=== PATIENT | male | born 1955 | race Caucasian/White ===

== ENCOUNTER → 2019-07-07 | Outpatient (CLI) | payer BC ==
[2019-07-07 13:44] LABS: HCT 36.6 % (39.0-53.0); HGB 12.2 gm/dL (13.0-17.5); MCH 31.4 pg (25.0-35.0); MCHC 33.3 g/dL (31.0-37.0); MCV 94.5 fL (80.0-100.0); Mean Platelet Volume 5.7; Platelet Count 309 k/uL (150-450); RBC 3.87 m/uL (4.30-5.90); RDW 13.4 % (11.5-15.5); WBC 8.3 k/uL (3.8-10.6)
[2019-07-07 19:19] LABS: % Iron Saturation 29.76 (15.00-50.00); African American GFR (CKD) 109.4 (60.0-200.0); Albumin 4.4 g/dL (3.80-4.90); Albumin/Globulin Ratio 1.63 (1.60-3.17); Anion Gap 5.6 mmol/L (4.00-12.00); BUN/Creat Ratio 22.5 Ratio (12.00-20.00); Calcium 9.7 mg/dL (8.7-10.3); Carbon Dioxide 29.4 mmol/L (21.6-31.8); Globulin 2.7 g/dL (1.6-3.3); Non-African American GFR(CKD) 94.4 (60.0-200.0); Potassium 4.3 mmol/L (3.5-5.5); Total Bilirubin 0.4 mg/dL (0.2-1.2); Total Protein 7.1 g/dL (6.2-8.2)
[2019-07-07 19:26] LABS: Prolactin 5.7 ng/mL (2.1-17.7)
[2019-07-07 20:27] LABS: T4, Free (Free Thyroxine) 0.8 ng/dL (0.80-1.80)
== END | disposition home or self-care (01) ==
LOC: LABWHC1 12:40
PROVIDERS: ATTEND Internal Medicine Endocrinology, Diabetes & Metabolism
DX: R53.83 Other fatigue (principal)
CPT/HCPCS: 36415; 80053; 82533; 82607; 83540; 83550; 84146; 84403; 84439; 84443; 84481; 85027

== ENCOUNTER → 2019-07-18 | Outpatient (CLI) | payer BC ==
[2019-07-18 18:37] LABS: Luteinizing Hormone 8.4 mIU/mL
== END | disposition home or self-care (01) ==
LOC: LABWHC1 10:32
PROVIDERS: ATTEND Internal Medicine Endocrinology, Diabetes & Metabolism
DX: R53.83 Other fatigue (principal); R73.09 Other abnormal glucose
CPT/HCPCS: 36415; 83001; 83002; 84402; 84403

== ENCOUNTER → 2019-09-08 | Outpatient (CLI) | payer BC | END | disposition home or self-care (01) | LOC: LABWHC1 11:38 | PROVIDERS: ATTEND Internal Medicine Critical Care Medicine | DX: J45.40 Moderate persistent asthma, uncomplicated (principal) | CPT/HCPCS: 36415; 85008 ==

== ENCOUNTER → 2020-01-08 | Outpatient (CLI) | payer BC ==
--- NOTE | 2020-01-08 16:02 | CT ---
EXAMINATION TYPE: CT chest w con DATE OF EXAM: 01/08/2020 COMPARISON: Chest x-ray 11/12/2019 HISTORY: Follow up pulmonary nodule CT DLP: 758.2 mGycm, Automated exposure control for dose reduction was used. CONTRAST: Performed injected with 100 mL of Isovue 300. TECHNIQUE: Axial images were obtained at 5 mm thick sections. Reconstructed images are reviewed on [employer] computer in the coronal plane. FINDINGS: Portion of the thyroid visualized is normal. There is a 0.6 cm area of pneumonitis within the periphery of the left upper lung field. Series 4 latha ge 24. There is a 0.5 cm calcification in the posterior left lung base with Hounsfield unit measurement of 8 94. Compatible with a calcified granuloma. This may correspond to a small nodule within the left midl lisa there is an additional calcified nodule measuring 0.7 cm and 1143 Hounsfield units compatible wit h a calcified granuloma corresponds to the density identified on the chest x-ray at the left lung bas e. No enlarged mediastinal or hilar adenopathy is evident. The ascending aorta diameter at the level o f the main pulmonary artery is 4.1 cm. The main pulmonary artery diameter at the bifurcation is 3.[address] sections are obtained through the upper abdomen. Abdomen is essentially unremarkable. IMPRESSIONS: 1. Calcified granuloma within the left lung. 2. Small area of pneumonitis. Follow-up chest CT in 6 months can be performed in high risk patients.
== END | disposition home or self-care (01) ==
LOC: RADCTMAIN 13:29
PROVIDERS: ATTEND Internal Medicine Critical Care Medicine
DX: J84.10 Pulmonary fibrosis, unspecified (principal); J18.9 Pneumonia, unspecified organism; Z88.1 Allergy status to other antibiotic agents
CPT/HCPCS: 71260; Q9967

== ENCOUNTER → 2020-01-22 | Outpatient (CLI) | payer BC ==
[2020-01-22 14:06] LABS: HCT 42.6 % (39.0-53.0); HGB 13.6 gm/dL (13.0-17.5); MCH 30.5 pg (25.0-35.0); MCHC 31.8 g/dL (31.0-37.0); MCV 95.9 fL (80.0-100.0); Mean Platelet Volume 7.9; Platelet Count 241 k/uL (150-450); RBC 4.45 m/uL (4.30-5.90); RDW 14.6 % (11.5-15.5); WBC 7.5 k/uL (3.8-10.6)
== END | disposition home or self-care (01) ==
LOC: LABWHC1 12:27
PROVIDERS: ATTEND Internal Medicine Endocrinology, Diabetes & Metabolism
DX: E29.1 Testicular hypofunction (principal)
CPT/HCPCS: 36415; 84153; 84403; 85027

== ENCOUNTER → 2020-05-31 | Outpatient (CLI) | payer MEDICARE, BC ==
[2020-05-31 13:19] LABS: HCT 45.9 % (39.0-53.0); HGB 14.8 gm/dL (13.0-17.5); MCH 31.4 pg (25.0-35.0); MCHC 32.4 g/dL (31.0-37.0); MCV 97.2 fL (80.0-100.0); Mean Platelet Volume 7.2; Platelet Count 275 k/uL (150-450); RBC 4.72 m/uL (4.30-5.90); WBC 6.8 k/uL (3.8-10.6)
== END | disposition home or self-care (01) ==
LOC: LABWHC1 10:21
PROVIDERS: ATTEND Internal Medicine Endocrinology, Diabetes & Metabolism
DX: E29.1 Testicular hypofunction (principal)
CPT/HCPCS: 36415; 84403; 85027

== ENCOUNTER → 2020-09-21 | Outpatient (CLI) | payer MEDICARE ==
[2020-09-21 19:02] LABS: HCT 45.6 % (39.6-50.0); MCH 31.3 pg (27.0-32.0); MCHC 32.9 g/dL (32.0-37.0); Mean Platelet Volume 9.9 fL (9.5-12.2); Platelet Count 259 X 10*3/uL (140-440); RDW 14.5 % (11.5-14.5); WBC 7.45 X 10*3/uL (4.50-10.00)
[2020-09-21 19:24] LABS: Prostate Specific Antigen 0.7 ng/mL (0.0-4.5)
== END | disposition home or self-care (01) ==
LOC: LABWHC1 11:33
PROVIDERS: ATTEND Internal Medicine Endocrinology, Diabetes & Metabolism
DX: E29.1 Testicular hypofunction (principal)
CPT/HCPCS: 36415; 84153; 84403; 85027

== ENCOUNTER 2020-11-04 09:46 | Emergency (ER) | payer MEDICARE ==
[2020-11-04] MEDS ORDERED: ACETAMINOPHEN TAB 500 MG TAB PO STA (10:06)
--- NOTE | 2020-11-04 10:31 | XR ---
EXAMINATION TYPE: XR chest 2V DATE OF EXAM: 11/04/2020 COMPARISON: 11/12/2019 INDICATION: Recent abnormal chest TECHNIQUE: Frontal and lateral views of the chest are obtained. FINDINGS: The heart size is normal. The pulmonary vasculature is normal. The nodule left lung base measures 0.7 cm on this exam. No suspicious infiltrates are evident. IMPRESSION: 1. Benign-appearing nodule left lung base. Follow-up exam in one year to confirm stability is recomme nded.
--- NOTE | 2020-11-04 12:05 | ED ---
URI HPI - General Chief Complaint: Upper Respiratory Infection Stated Complaint: Covid+, VIKKI Time Seen by Provider: 11/04/20 11:24 Source: patient, RN notes reviewed Mode of arrival: ambulatory Limitations: no limitations - History of Present Illness Initial Comments: 65-year-old male presents emergency Department chief complaint of covid. Patient states he tested +2 days ago. Patient states symptoms started over the weekend. Patient was sent in by advertising photographer Dr. Walton for monoclonal antibodies. Denies any chest pain shortness of breath he's had on-and-off fevers no major GI symptoms. - Related Data Allergies Allergy/AdvReac Type Severity Reaction Status Date / Time No Known Allergies Allergy Verified 11/04/20 10:08 Review of Systems ROS Statement: Those systems with pertinent positive or pertinent negative responses have been documented in the HPI. ROS Other: All systems not noted in ROS Statement are negative. Past Medical History Past Medical History: Asthma, Hypertension History of Any Multi-Drug Resistant Organisms: None Reported Past Surgical History: Hernia Repair, Orthopedic Surgery Additional Past Surgical History / Comment(s): R knee, sinus x 2 Past Psychological History: No Psychological Hx Reported Smoking Status: Former smoker Past Alcohol Use History: None Reported Past Drug Use History: None Reported General Exam Limitations: no limitations General appearance: alert, in no apparent distress Head exam: Present: atraumatic, normocephalic, normal inspection Eye exam: Present: normal appearance, PERRL, EOMI. Absent: scleral icterus, conjunctival injection, periorbital swelling ENT exam: Present: normal exam, normal oropharynx, mucous membranes moist Neck exam: Present: normal inspection. Absent: tenderness, meningismus, lymphadenopathy Respiratory exam: Present: normal lung sounds bilaterally. Absent: respiratory distress, wheezes, rales, rhonchi, stridor Cardiovascular Exam: Present: regular rate, normal rhythm, normal heart sounds. Absent: systolic murmur, diastolic murmur, rubs, gallop, clicks Course Vital Signs 11/04/20 09:56 Temperature 101.4 F H Pulse Rate 88 Respiratory 20 Rate Blood Pressure 136/80 O2 Sat by Pulse 95 Oximetry Medical Decision Making - Medical Decision Making X-ray shows stable nodule, no significant infiltrates vitals are stable other than mild fever which was treated with acetaminophen. A patient will receive monoclonal antibodies and discharged in stable condition. Disposition Clinical Impression: COVID-19 Disposition: HOME SELF-CARE Condition: Stable Instructions (If sedation given, give patient instructions): Coronavirus Disease 2019 (COVID-19) Additional Instructions: Please return to the Emergency Department if symptoms worsen or any other concerns. Is patient prescribed a controlled substance at d/c from ED?: No Referrals: Aroldo Lemus MD [Primary Care Provider] - 1-2 days Time of Disposition: 12:05
[2020-11-04] MEDS ORDERED: BAMLANIVIMAB (EUA) 700 MG, ETESEVIMAB (EUA) 1,400 MG in SODIUM CHLORIDE 0.9% 50 ML IVPB ONE (12:15)
[2020-11-04 14:24] VITALS: BP 124/84; PULSE 70; RESP 19; TEMP 98.8
== END 2020-11-04 14:24 | disposition home or self-care (01) ==
LOC: EC 09:46
DX: U07.1 COVID-19 (principal); J45.909 Unspecified asthma, uncomplicated; I10 Essential (primary) hypertension; Z87.891 Personal history of nicotine dependence
CPT/HCPCS: 71046; 99284; 96365; Q0245

== ENCOUNTER 2021-01-22 11:42 | Inpatient (IN) | payer MEDICARE ==
[2021-01-22] MEDS ORDERED: IPRATROPIUM-ALBUTEROL 3 ML NEB INHALATION STA (12:27)
[2021-01-22] MEDS ORDERED: SODIUM CHLORIDE 0.9% 1,000 ML IV STA (12:27)
--- NOTE | 2021-01-22 12:30 | ED ---
SOB HPI - General Chief Complaint: Shortness of Breath Stated Complaint: SOB, shaky Time Seen by Provider: 01/22/21 12:07 Source: patient, RN notes reviewed Mode of arrival: wheelchair Limitations: no limitations - History of Present Illness Initial Comments: This is a 65-year-old male with a history of COVID-19 in October of this year who did receive the antibiotic therapy who states for the past several days he's had fevers chills sweats cough he states he coughed up some blood this morning. He also has some right-sided chest discomfort. He does state he has a history of asthma and does use a CPAP machine he was on oxygen but now insurance will pay 40s off of oxygen. He was sent in from the clinic he did have a Coban test this morning at the clinic which was negative. No other current complaints or modifying factors he is not on blood thinners. MD Complaint: shortness of breath, cough, chest pain - Related Data Home Medications Medication Instructions Recorded Confirmed Budesonide-Formot 160-4.5 Mcg 2 puff INHALATION RT-BID 11/04/20 11/04/20 [Symbicort 160-4.5 Mcg Inhaler] Fluticasone Nasal [place] [Flonase 2 spr EA NOSTRIL RT-DAILY 11/04/20 11/04/20 Nasal [place]] Losartan/Hydrochlorothiazide 1 tab PO DAILY 11/04/20 11/04/20 [Losartan-Hctz 100-25 mg Tab] Montelukast [Singulair] 10 mg PO HS 11/04/20 11/04/20 Naltrexone HCl/Bupropion HCl 2 tab PO BID 11/04/20 11/04/20 [Contrave ER 8-90 mg Tablet] Testosterone Cypionate 200 mg IM Q14D 11/04/20 11/04/20 [Depo-Testosterone] lamoTRIgine [LaMICtal] 75 mg PO DAILY 11/04/20 11/04/20 metFORMIN HCL [Glucophage] 500 mg PO DAILY 11/04/20 11/04/20 Allergies Allergy/AdvReac Type Severity Reaction Status Date / Time No Known Allergies Allergy Verified 01/22/21 12:03 Review of Systems ROS Statement: Those systems with pertinent positive or pertinent negative responses have been documented in the HPI. ROS Other: All systems not noted in ROS Statement are negative. Past Medical History Past Medical History: Asthma, Hypertension History of Any Multi-Drug Resistant Organisms: None Reported Past Surgical History: Hernia Repair, Orthopedic Surgery Additional Past Surgical History / Comment(s): R knee, sinus x 2 Past Psychological History: No Psychological Hx Reported Smoking Status: Former smoker Past Alcohol Use History: None Reported Past Drug Use History: None Reported General Exam - General Exam Comments Initial Comments: This is a well-developed well-nourished awake alert oriented 3 male Limitations: no limitations General appearance: alert, anxious Head exam: Present: atraumatic, normocephalic, normal inspection Eye exam: Present: normal appearance, PERRL, EOMI. Absent: scleral icterus, conjunctival injection, periorbital swelling ENT exam: Present: normal exam, mucous membranes moist Neck exam: Present: normal inspection, full ROM, other (No stridor JVD or bruits). Absent: tenderness, meningismus, lymphadenopathy Respiratory exam: Present: normal lung sounds bilaterally, decreased breath sounds (Some basilar crackles noted to seem to clear with deep breathing). Absent: respiratory distress, wheezes, rales, rhonchi, stridor Cardiovascular Exam: Present: regular rate, normal rhythm, normal heart sounds. Absent: systolic murmur, diastolic murmur, rubs, gallop, clicks GI/Abdominal exam: Present: soft, normal bowel sounds. Absent: distended, tenderness, guarding, rebound, rigid Extremities exam: Present: normal inspection, full ROM, normal capillary refill. Absent: tenderness, pedal edema, joint swelling, calf tenderness Back exam: Present: normal inspection Neurological exam: Present: alert, oriented X3, CN II-XII intact Psychiatric exam: Present: normal affect, normal mood Skin exam: Present: warm, intact, normal color, diaphoretic. Absent: rash Course Vital Signs 01/22/21 01/22/21 01/22/21 11:55 12:45 13:01 Temperature 97.9 F Pulse Rate 68 67 81 Respiratory 22 22 22 Rate Blood Pressure 118/64 120/66 131/73 O2 Sat by Pulse 96 96 Oximetry 01/22/21 14:01 Temperature Pulse Rate 73 Respiratory 22 Rate Blood Pressure 124/81 O2 Sat by Pulse 96 Oximetry Medical Decision Making - Medical Decision Making I did discuss findings with patient family as well as with Dr. Mayen patient be admitted for IV antibiotics and treatment additionally CAT scan was ordered for the elevated d-dimer to be evaluated. - Lab Data Result diagrams: 01/22/21 12:37 01/22/21 12:37 Lab Results 01/22/21 01/22/21 01/22/21 Range/Units 12:37 12:37 12:37 WBC 19.2 H (3.8-10.6) k/uL RBC 4.26 L (4.30-5.90) m/uL Hgb 13.2 (13.0-17.5) gm/dL Hct 42.3 (39.0-53.0) % MCV 99.2 (80.0-100.0) fL MCH 31.0 (25.0-35.0) pg MCHC 31.3 (31.0-37.0) g/dL RDW 16.2 H (11.5-15.5) % Plt Count 232 (150-450) k/uL MPV 7.3 Neutrophils % 91 % Lymphocytes % 3 % Monocytes % 4 % Eosinophils % 0 % Basophils % 0 % Neutrophils # 17.5 H (1.3-7.7) k/uL Lymphocytes # 0.6 L (1.0-4.8) k/uL Monocytes # 0.8 (0-1.0) k/uL Eosinophils # 0.0 (0-0.7) k/uL Basophils # 0.0 (0-0.2) k/uL Anisocytosis Slight Macrocytosis Slight PT 10.6 (9.0-12.0) sec INR 1.0 (<1.2) APTT 22.3 (22.0-30.0) sec D-Dimer 0.81 H (<0.60) mg/L FEU Sodium 137 (137-145) mmol/L Potassium 3.9 (3.5-5.1) mmol/L Chloride 107 (98-107) mmol/L Carbon Dioxide 22 (22-30) mmol/L Anion Gap 8 mmol/L BUN 23 H (9-20) mg/dL Creatinine 0.83 (0.66-1.25) mg/dL Est GFR (CKD-EPI)AfAm >90 (>60 ml/min/1.73 sqM) Est GFR (CKD-EPI)NonAf >90 (>60 ml/min/1.73 sqM) Glucose 254 H (74-99) mg/dL Plasma Lactic Acid Ismael (0.7-2.0) mmol/L Calcium 8.8 (8.4-10.2) mg/dL Magnesium 2.0 (1.6-2.3) mg/dL Total Bilirubin 0.4 (0.2-1.3) mg/dL AST 33 (17-59) U/L ALT 31 (4-49) U/L Alkaline Phosphatase 54 (38-126) U/L Creatine Kinase 91 (55-170) U/L Troponin I (0.000-0.034) ng/mL NT-Pro-B Natriuret Pep pg/mL Total Protein 7.0 (6.3-8.2) g/dL Albumin 3.6 (3.5-5.0) g/dL 01/22/21 01/22/21 01/22/21 Range/Units 12:37 12:37 12:37 WBC (3.8-10.6) k/uL RBC (4.30-5.90) m/uL Hgb (13.0-17.5) gm/dL Hct (39.0-53.0) % MCV (80.0-100.0) fL MCH (25.0-35.0) pg MCHC (31.0-37.0) g/dL RDW (11.5-15.5) % Plt Count (150-450) k/uL MPV Neutrophils % % Lymphocytes % % Monocytes % % Eosinophils % % Basophils % % Neutrophils # (1.3-7.7) k/uL Lymphocytes # (1.0-4.8) k/uL Monocytes # (0-1.0) k/uL Eosinophils # (0-0.7) k/uL Basophils # (0-0.2) k/uL Anisocytosis Macrocytosis PT (9.0-12.0) sec INR (<1.2) APTT (22.0-30.0) sec D-Dimer (<0.60) mg/L FEU Sodium (137-145) mmol/L Potassium (3.5-5.1) mmol/L Chloride (98-107) mmol/L Carbon Dioxide (22-30) mmol/L Anion Gap mmol/L BUN (9-20) mg/dL Creatinine (0.66-1.25) mg/dL Est GFR (CKD-EPI)AfAm (>60 ml/min/1.73 sqM) Est GFR (CKD-EPI)NonAf (>60 ml/min/1.73 sqM) Glucose (74-99) mg/dL Plasma Lactic Acid Ismael 1.5 (0.7-2.0) mmol/L Calcium (8.4-10.2) mg/dL Magnesium (1.6-2.3) mg/dL Total Bilirubin (0.2-1.3) mg/dL AST (17-59) U/L ALT (4-49) U/L Alkaline Phosphatase (38-126) U/L Creatine Kinase (55-170) U/L Troponin I <0.012 (0.000-0.034) ng/mL NT-Pro-B Natriuret Pep 1120 pg/mL Total Protein (6.3-8.2) g/dL Albumin (3.5-5.0) g/dL - Radiology Data Radiology results: report reviewed (Imaging reviewed as well as reports evidence of a right lower aspect of the right upper lobe pneumonia.), image reviewed Disposition Clinical Impression: Right upper lobe pneumonia, Febrile illness, acute, Asthma exacerbation Disposition: ADMITTED IP TO THIS HOSP Condition: Fair Referrals: Aroldo Lemus MD [Medical Doctor] - 1-2 days
--- NOTE | 2021-01-22 13:03 | XR ---
EXAMINATION TYPE: XR chest 2V DATE OF EXAM: 01/22/2021 COMPARISON: Chest x-ray from November 04, 2020 HISTORY: COVID 10/28/2020 with shortness of breath TECHNIQUE: Frontal and lateral views of the chest are obtained. FINDINGS: There is new inferior lateral right upper lobe consolidation on background chronic parench ymal changes. The cardiac silhouette size is upper limits of normal. Left lung is clear. The osseou s structures are intact. IMPRESSION: New right upper lobe pneumonic consolidation felt Present. Correlate clinically.
[2021-01-22] MEDS ORDERED: ALBUTEROL HFA INHALER INHALATION STA (13:06)
[2021-01-22 13:12] LABS: Anisocytosis Slight; Basophils % (A) 0 %; Eosinophils % (A) 0 %; HCT 42.3 % (39.0-53.0); HGB 13.2 gm/dL (13.0-17.5); Lymphocytes # (A) 0.6 k/uL (1.0-4.8); Lymphocytes % (A) 3 %; MCHC 31.3 g/dL (31.0-37.0); MCV 99.2 fL (80.0-100.0); Macrocytosis Slight; Mean Platelet Volume 7.3; Monocytes # (A) 0.8 k/uL (0-1.0); Monocytes % (A) 4 %; Neutrophils # (A) 17.5 k/uL (1.3-7.7); Neutrophils % (A) 91 %; Platelet Count 232 k/uL (150-450); RBC 4.26 m/uL (4.30-5.90); RDW 16.2 % (11.5-15.5); WBC 19.2 k/uL (3.8-10.6)
[2021-01-22 13:25] LABS: ALT 31 U/L (4-49); AST 33 U/L (17-59); African American GFR (CKD) >90 (>60 ml/min/1.73 sqM); Albumin 3.6 g/dL (3.5-5.0); Alkaline Phosphatase 54 U/L (38-126); Anion Gap 8 mmol/L; Blood Urea Nitrogen 23 mg/dL (9-20); Calcium 8.8 mg/dL (8.4-10.2); Carbon Dioxide 22 mmol/L (22-30); Chloride 107 mmol/L (98-107); Creatine Kinase 91 U/L (55-170); Glucose 254 mg/dL (74-99); Non-African American GFR(CKD) >90 (>60 ml/min/1.73 sqM); Potassium 3.9 mmol/L (3.5-5.1); Sodium 137 mmol/L (137-145); Total Bilirubin 0.4 mg/dL (0.2-1.3)
[2021-01-22] MEDS ORDERED: cefTRIAXone IN SWFI 1,000 MG/10 ML SYRINGE IVP STA (13:55)
[2021-01-22 14:05] LABS: Partial Thromboplastin Time 22.3 sec (22.0-30.0); Prothrombin Time 10.6 sec (9.0-12.0)
[2021-01-22 14:14] LABS: D-Dimer 0.81 mg/L FEU (<0.60)
[2021-01-22] MEDS ORDERED: IPRATROPIUM-ALBUTEROL 3 ML NEB INHALATION PRN (14:23)
[2021-01-22] MEDS ORDERED: AZITHROMYCIN 500 MG in SODIUM CHLORIDE 0.9% 250 ML IVPB STA (14:23)
[2021-01-22] MEDS ORDERED: PNEUMONIA PROTOCOL UTILIZED 1 EACH MISC PO PRN (14:23)
[2021-01-22] MEDS: SODIUM CHLORIDE 0.9% 1,000 ML IV SCH (14:37)
--- NOTE | 2021-01-22 15:20 | ED ---
Medical Decision Making - Lab Data Result diagrams: 01/22/21 12:37 01/22/21 12:37 Lab Results 01/22/21 01/22/21 01/22/21 Range/Units 12:37 12:37 12:37 WBC 19.2 H (3.8-10.6) k/uL RBC 4.26 L (4.30-5.90) m/uL Hgb 13.2 (13.0-17.5) gm/dL Hct 42.3 (39.0-53.0) % MCV 99.2 (80.0-100.0) fL MCH 31.0 (25.0-35.0) pg MCHC 31.3 (31.0-37.0) g/dL RDW 16.2 H (11.5-15.5) % Plt Count 232 (150-450) k/uL MPV 7.3 Neutrophils % 91 % Lymphocytes % 3 % Monocytes % 4 % Eosinophils % 0 % Basophils % 0 % Neutrophils # 17.5 H (1.3-7.7) k/uL Lymphocytes # 0.6 L (1.0-4.8) k/uL Monocytes # 0.8 (0-1.0) k/uL Eosinophils # 0.0 (0-0.7) k/uL Basophils # 0.0 (0-0.2) k/uL Anisocytosis Slight Macrocytosis Slight PT 10.6 (9.0-12.0) sec INR 1.0 (<1.2) APTT 22.3 (22.0-30.0) sec D-Dimer 0.81 H (<0.60) mg/L FEU Sodium 137 (137-145) mmol/L Potassium 3.9 (3.5-5.1) mmol/L Chloride 107 (98-107) mmol/L Carbon Dioxide 22 (22-30) mmol/L Anion Gap 8 mmol/L BUN 23 H (9-20) mg/dL Creatinine 0.83 (0.66-1.25) mg/dL Est GFR (CKD-EPI)AfAm >90 (>60 ml/min/1.73 sqM) Est GFR (CKD-EPI)NonAf >90 (>60 ml/min/1.73 sqM) Glucose 254 H (74-99) mg/dL Plasma Lactic Acid Ismael (0.7-2.0) mmol/L Calcium 8.8 (8.4-10.2) mg/dL Magnesium 2.0 (1.6-2.3) mg/dL Total Bilirubin 0.4 (0.2-1.3) mg/dL AST 33 (17-59) U/L ALT 31 (4-49) U/L Alkaline Phosphatase 54 (38-126) U/L Creatine Kinase 91 (55-170) U/L Troponin I (0.000-0.034) ng/mL NT-Pro-B Natriuret Pep pg/mL Total Protein 7.0 (6.3-8.2) g/dL Albumin 3.6 (3.5-5.0) g/dL 01/22/21 01/22/21 01/22/21 Range/Units 12:37 12:37 12:37 WBC (3.8-10.6) k/uL RBC (4.30-5.90) m/uL Hgb (13.0-17.5) gm/dL Hct (39.0-53.0) % MCV (80.0-100.0) fL MCH (25.0-35.0) pg MCHC (31.0-37.0) g/dL RDW (11.5-15.5) % Plt Count (150-450) k/uL MPV Neutrophils % % Lymphocytes % % Monocytes % % Eosinophils % % Basophils % % Neutrophils # (1.3-7.7) k/uL Lymphocytes # (1.0-4.8) k/uL Monocytes # (0-1.0) k/uL Eosinophils # (0-0.7) k/uL Basophils # (0-0.2) k/uL Anisocytosis Macrocytosis PT (9.0-12.0) sec INR (<1.2) APTT (22.0-30.0) sec D-Dimer (<0.60) mg/L FEU Sodium (137-145) mmol/L Potassium (3.5-5.1) mmol/L Chloride (98-107) mmol/L Carbon Dioxide (22-30) mmol/L Anion Gap mmol/L BUN (9-20) mg/dL Creatinine (0.66-1.25) mg/dL Est GFR (CKD-EPI)AfAm (>60 ml/min/1.73 sqM) Est GFR (CKD-EPI)NonAf (>60 ml/min/1.73 sqM) Glucose (74-99) mg/dL Plasma Lactic Acid Ismael 1.5 (0.7-2.0) mmol/L Calcium (8.4-10.2) mg/dL Magnesium (1.6-2.3) mg/dL Total Bilirubin (0.2-1.3) mg/dL AST (17-59) U/L ALT (4-49) U/L Alkaline Phosphatase (38-126) U/L Creatine Kinase (55-170) U/L Troponin I <0.012 (0.000-0.034) ng/mL NT-Pro-B Natriuret Pep 1120 pg/mL Total Protein (6.3-8.2) g/dL Albumin (3.5-5.0) g/dL Disposition Clinical Impression: Right upper lobe pneumonia, Febrile illness, acute, Asthma exacerbation, PVCs (premature ventricular contractions), Atrial fibrillation Disposition: ADMITTED IP TO THIS HOSP Condition: Fair
--- NOTE | 2021-01-22 16:18 | CT ---
EXAMINATION TYPE: CT angio chest DATE OF EXAM: 01/22/2021 3:01 PM COMPARISON: CT 01/08/2020. Same-day radiographs. HISTORY: SOB CT DLP: 1172.2 mGycm Automated exposure control for dose reduction was used. CONTRAST: CTA scan of the thorax is performed with IV Contrast, patient injected with 100 mL of Isovue 370, pul monary embolism protocol. MIP images are created and reviewed. FINDINGS: LUNGS: There is large right upper lobe consolidation. There is no pleural effusion or pneumothorax seen. The tracheobronchial tree is patent. 6 mm left lower lobe calcified granuloma. MEDIASTINUM: There is satisfactory enhancement of the pulmonary artery and its branches, there is no CT evidence for pulmonary embolism. There are multiple borderline enlarged mediastinal lymph nodes, may be reactive. No pericardial effusion is seen. OTHER: No additional significant abnormality is seen. IMPRESSION: NO ACUTE PE. RIGHT UPPER LOBE PNEUMONIA. RECOMMEND FOLLOW-UP AFTER ADEQUATE TREATMENT TO DOCUMENT RESOLUTION AND E XCLUDE ANY UNDERLYING ETIOLOGY.
[2021-01-22] MEDS: methylPREDNISolone SOD SUCCI 125 MG/2 ML VIAL IV SCH ×2 (17:40→23:28)
[2021-01-22] MEDS ORDERED: TEMAZEPAM 15 MG CAP PO PRN (20:04)
[2021-01-22] MEDS ORDERED: ALPRAZolam 0.25 MG TAB PO PRN (20:04)
[2021-01-22 20:27] LABS: Glucose,Whole Blood 177 mg/dL (75-99)
[2021-01-22] MEDS ORDERED: ALPHA LIPOIC ACID PO SCH (21:00)
[2021-01-22] MEDS ORDERED: BIOTIN PO SCH (21:00)
[2021-01-22] MEDS: lamoTRIgine 100 MG TAB PO SCH (21:01)
[2021-01-22] MEDS: HEPARIN SODIUM,PORCINE/PF 5,000 UNIT/0.5 ML SYRINGE SQ SCH (21:01)
[2021-01-22] MEDS: metFORMIN 500 MG TAB PO SCH (21:01)
[2021-01-22] MEDS: MONTELUKAST 10 MG TAB PO SCH (21:01)
[2021-01-22] MEDS: INSULIN ASPART (NovoLOG) 100 UNIT/ML VIAL SQ SCH (21:07)
[2021-01-22 21:13] LABS: Appearance,Urine Clear (Clear); Bilirubin,Urine Negative (Negative); Blood,Urine Negative (Negative); Color,Urine Yellow; Glucose,Urine (UA) Negative (Negative); Ketones,Urine Negative (Negative); Leukocyte Esterase,Urine Negative (Negative); Nitrite,Urine Negative (Negative); Protein,Urine Trace (Negative); Specific Gravity,Urine 1.027 (1.001-1.035); Urobilinogen,Urine <2.0 mg/dL (<2.0)
--- NOTE | 2021-01-22 21:56 | HP ---
HISTORY AND PHYSICAL CHIEF COMPLAINT: Shortness of breath and cough, sputum and shaking chills. HISTORY OF PRESENT ILLNESS: This 65-year-old gentleman with a past medical history of multiple medical problems including asthma and hypertension, being followed by Dr. Escobar and Dr. Walton in the outpatient setting, was recently diagnosed to have COVID. Also, the patient received ( ). The patient went home and was feeling much better. Currently the patient is not feeling better because the patient is complaining of shortness of breath, cough and the patient also had some shaking chills and the patient came to [facility] and was admitted for further evaluation and treatment. The patient also coughed up some blood this morning. The patient does use a CPAP machine at this time. There is not mention of issues regarding oxygen administration. At the time of admission white count is elevated at 19.8. D-dimer was 0.81 and the chest CTA was done which was reviewed personally by me, showed significant pneumonic process in the peripheral part of the right upper lobe. This can also be seen in the chest x-ray as well and the patient is being admitted for further evaluation and treatment. There is no history of chest pain or palpitation, but the patient was found to have a heart rate 160 by the nurse at this time. The EKG done in the ER again, which was reviewed personally by me, showed some atrial fibrillation, PVCs and varying rates also. PAST MEDICAL HISTORY: History of asthma, hypertension, history of hernia repair. MEDICATIONS PRIOR TO ADMISSION: Home medications are Glucophage, Singulair, ( ), vitamin D3, testosterone, prednisone, Lamictal, Effexor XR, losartan, fluticasone, Symbicort, albuterol. Doses are noted. ALLERGIES: None. FAMILY HISTORY: No history of heart disease or strokes in the family. SOCIAL HISTORY: No history of smoking, no alcohol intake. REVIEW OF SYSTEMS: ENT No history of diminished hearing or vision. CARDIOVASCULAR As mentioned earlier. RESPIRATORY As mentioned earlier. GI As mentioned earlier. No dysuria or hematuria. NERVOUS No numbness or weakness. ALLERGY/IMMUNOLOGY No asthma or hayfever. MUSCULOSKELETAL As mentioned earlier. HEMATOLOGY/ONCOLOGY Negative. ENDOCRINE No history of diabetes or hypothyroidism. CONSTITUTIONAL As mentioned earlier. DERMATOLOGY Negative. RHEUMATOLOGY Negative, PSYCHIATRY As mentioned earlier. PHYSICAL EXAMINATION: Alert and oriented x3. Pulse 73, blood pressure 130/70, respiration 16, temperature 98.2, pulse ox 93% on room air. HEENT: Conjunctivae normal. Oral mucosa moist. NECK: No jugular venous distention. No lymph node enlargement. CARDIOVASCULAR: S1, S2, muffled. No S3, no S4, RESPIRATORY: Diminished breath sounds at the bases. A few scattered rhonchi and crackles. No bronchial wheezes. ABDOMEN: Soft, obese, nontender. LEGS: No edema, no swelling. NERVOUS SYSTEM: Higher functions mentioned earlier. Moves all four limbs. No focal motor or sensory deficits. LYMPHATICS: No lymph node in neck or axilla. SKIN: No rash. JOINTS: No active deforming arthropathy. LABS: WBC 19.2, hemoglobin 13.2. Other labs are noted. ASSESSMENT: 1. Acute right upper lobe pneumonia, possibly gram-negative, possibly COVID related. 2. History of recent COVID-19 infection, treated with BAM. 3. Increased WBC. 4. Diabetes mellitus type 2, possibly new onset. 5. Atrial fibrillation with fast ventricular rate. 6. PVCs. 7. History of asthma, chronic, intermittent. 8. Hypertension. 9. Possible sleep apnea. 10.History of DJD. 11.History of hernia repair. 12.Obesity with body mass index of 34. 13.FULL CODE. RECOMMENDATIONS: In this 65-year-old gentleman who presented with multiple complex medical issues, we will monitor the patient closely. We will initiate broad-spectrum IV antibiotics with Rocephin and Zithromax. Otherwise bronchodilators. Obtain the cultures. Otherwise, I would also get a pulmonary and cardiology evaluation, 2D echo with Doppler, cardiac workup as well. The troponins are negative at this time. Prognosis guarded because of multiple complex medical issues. Further recommendations to follow. MMODL / IJN: [id number] /
[2021-01-23] MEDS: methylPREDNISolone SOD SUCCI 125 MG/2 ML VIAL IV SCH ×4 (05:33→23:50)
[2021-01-23] MEDS: SYMBICORT 160-4.5 MCG INHALER INHALATION SCH ×3 (06:50→19:25)
[2021-01-23] MEDS: SODIUM CHLORIDE 0.9% 1,000 ML IV SCH ×2 (06:50→11:49)
[2021-01-23 07:16] LABS: Glucose,Whole Blood 191 mg/dL (75-99)
[2021-01-23] MEDS ORDERED: PANTOPRAZOLE 40 MG TABLET PO SCH (07:30)
[2021-01-23] MEDS: FLUTICASONE 50MCG/SPRAY NASAL 16GM EA NOSTRIL SCH (07:39)
[2021-01-23] MEDS: VENLAFAXINE HCL ER 75 MG CAP PO SCH (07:40)
[2021-01-23] MEDS: AZITHROMYCIN 500 MG TAB PO SCH (07:40)
[2021-01-23] MEDS: CHOLECALCIFEROL 25 MCG (1000 IU) TABLET PO SCH (07:40)
[2021-01-23] MEDS: lamoTRIgine 100 MG TAB PO SCH ×2 (07:40→20:55)
[2021-01-23] MEDS: MULTIVITAMINS, THERA 1 EACH TAB PO SCH (07:40)
[2021-01-23] MEDS: HEPARIN SODIUM,PORCINE/PF 5,000 UNIT/0.5 ML SYRINGE SQ SCH ×2 (07:42→20:55)
[2021-01-23] MEDS: LOSARTAN-HCTZ 50-12.5 MG 1 EACH TAB PO SCH (07:42)
[2021-01-23] MEDS: INSULIN ASPART (NovoLOG) 100 UNIT/ML VIAL SQ SCH ×4 (07:50→20:54)
--- NOTE | 2021-01-23 08:43 | XR ---
EXAMINATION TYPE: XR chest 2V DATE OF EXAM: 01/23/2021 COMPARISON: Chest x-ray and CT chest from yesterday HISTORY: Pneumonia progress study TECHNIQUE: Frontal and lateral views of the chest are obtained. FINDINGS: Persistent posterior-inferior right upper lung pneumonic masslike consolidation on backgro und mild underlying emphysematous change. The cardiac silhouette size is stable and upper limits of normal. The osseous structures are intact. IMPRESSION: Persistent posterior inferior right upper lung pneumonic masslike consolidation. No sign ificant change from one day earlier.
[2021-01-23] MEDS ORDERED: MACUGUARD PO SCH (09:00)
[2021-01-23] MEDS ORDERED: [UNRECOGNIZED DRUG - OTHER] PO SCH (09:00)
[2021-01-23 09:13] LABS: Basophils # (A) 0.01 X 10*3/uL (0.00-0.10); Basophils % (A) 0.1 %; Eosinophils # (A) 0 X 10*3/uL (0.04-0.35); Eosinophils % (A) 0 %; Lymphocytes # (A) 0.91 X 10*3/uL (0.90-5.00); Lymphocytes % (A) 7.1 %; MCH 32.2 pg (27.0-32.0); MCHC 33.3 g/dL (32.0-37.0); MCV 96.5 fL (80.0-97.0); Mean Platelet Volume 10.1 fL (9.5-12.2); Monocytes # (A) 0.43 X 10*3/uL (0.20-1.00); Monocytes % (A) 3.3 %; Neutrophils # (A) 11.44 X 10*3/uL (1.80-7.70); Neutrophils % (A) 88.9 %; Platelet Count 239 X 10*3/uL (140-440); RBC 4.04 X 10*6/uL (4.40-5.60); RDW 16.6 % (11.5-14.5); WBC 12.87 X 10*3/uL (4.50-10.00)
[2021-01-23 09:50] LABS: African American GFR (CKD) 108.6 (60.0-200.0); Anion Gap 7.2 mmol/L (4.00-12.00); Calcium 8.5 mg/dL (8.7-10.3); Carbon Dioxide 21.8 mmol/L (21.6-31.8); Non-African American GFR(CKD) 93.7 (60.0-200.0); Potassium 4.1 mmol/L (3.5-5.5)
[2021-01-23 11:43] LABS: Glucose,Whole Blood 227 mg/dL (75-99)
[2021-01-23 16:42] LABS: Glucose,Whole Blood 219 mg/dL (75-99)
[2021-01-23] MEDS: PANTOPRAZOLE 40 MG TABLET PO SCH (18:03)
--- NOTE | 2021-01-23 20:08 | PN ---
PROGRESS NOTE DATE OF SERVICE: 01/23/2021 This 65-year-old gentleman who was admitted with shortness of breath and cough and sputum and shaking, chills, has significant pneumonia. The patient also had recent Covid 19 infection. The patient started on broad spectrum IV antibiotics. Dr. Walton is following the patient closely. Repeat chest x-ray done today showed persistent posterior inferior right upper lobe consolidation. PAST MEDICAL HISTORY: Reviewed. REVIEW OF SYSTEMS: CARDIOVASCULAR: No angina. RESPIRATION as mentioned earlier. GI: As mentioned earlier. : No dysuria. NERVOUS SYSTEM: No numbness or weakness. CURRENT MEDICATIONS: Reviewed and include: Xanax, Zithromax, Rocephin, vitamin D3, Hyzaar, NovoLog. Lamictal. Glucophage. Solu-Medrol. Singular. Multivitamins. PHYSICAL EXAMINATION: Patient is alert and oriented times three. Pulse 70, blood pressure 130/73, respiration 18, temperature 97.8, pulse ox 94% on 2 L. HEENT: Conjunctivae normal. NECK: No JVD. CARDIOVASCULAR: S1, S2 muffled. RESPIRATION: Breath sounds diminished in the bases. A few scattered rhonchi. ABDOMEN: Soft, nontender. LEGS are no edema. No swelling. NERVOUS SYSTEM: No focal deficits. LABS: WBC 12.87, sodium 139, potassium 4.1. Glucose 227. ASSESSMENT: 1. Acute right upper lobe pneumonia possibly gram-negative with possibly Covid related. 2. History of recent COVID-19 infection treated with BAM. 3. Increased WBC. 4. Diabetes mellitus type 2 possibly new onset. 5. Acute atrial fibrillation with fast ventricular rate. 6. PVCs. 7. History of asthma, chronic intermittent. 8. Hypertension. 9. Possible sleep apnea. 10.History of degenerative joint disease. 11.History of hernia repair. 12.Obesity with body mass index of 34. 13.FULL CODE. RECOMMENDATIONS AND DISCUSSION: Recommend to continue current medications. Continue with antibiotics. Continue to monitor blood sugars closely. I would continue with insulin scale at this time. Sugar is persistently elevated. Lantus may be utilized. Otherwise, repeat labs. Cultures are negative so far. I would also recommend pulmonary consultation with Dr. Walton's. Guarded prognosis. See orders for details. Further recommendations to follow. MMODL / IJN: [id number] /
[2021-01-23 20:26] LABS: Glucose,Whole Blood 215 mg/dL (75-99)
--- NOTE | 2021-01-23 20:46 | US ---
EXAMINATION TYPE: US venous doppler duplex LE DATE OF EXAM: 01/23/2021 8:10 PM COMPARISON: CT chest CLINICAL HISTORY: dvt. Post October COVID patient; pneumonia now; elevated D Dimer SIDE PERFORMED: Bilateral TECHNIQUE: The lower extremity deep venous system is examined utilizing real time linear array sonog willow with graded compression, doppler sonography and color-flow sonography. VESSELS IMAGED: Common Femoral Vein Deep Femoral Vein Greater Saphenous Vein * Femoral Vein Popliteal Vein Small Saphenous Vein * Proximal Calf Veins (* superficial vessels) Right Leg: Negative for DVT Left Leg: Negative for DVT, however, hyperechoic, mobile echoes are noted (Rouleaux Effect) in upper Great Saphenous Vein, but color flow is documented here. IMPRESSION: Internal echoes in the left greater saphenous vein, most compatible with artifact. No definite DVT of the bilateral lower extremity.
[2021-01-23] MEDS: MONTELUKAST 10 MG TAB PO SCH (20:55)
[2021-01-23] MEDS: metFORMIN 500 MG TAB PO SCH (20:55)
[2021-01-24] MEDS: SODIUM CHLORIDE 0.9% 1,000 ML IV SCH ×4 (02:48→23:20)
[2021-01-24 03:38] LABS: Mycoplasma IgG Antibody (EIA) 1.45 INDEX (<=0.90); Mycoplasma IgM Antibody 0.28 INDEX (<=0.90)
[2021-01-24] MEDS: methylPREDNISolone SOD SUCCI 125 MG/2 ML VIAL IV SCH ×2 (05:19→12:13)
[2021-01-24 07:19] LABS: Glucose,Whole Blood 179 mg/dL (75-99)
[2021-01-24 07:28] LABS: Magnesium 2.2 mg/dL (1.6-2.3); Potassium 4.4 mmol/L (3.5-5.1)
[2021-01-24] MEDS: SYMBICORT 160-4.5 MCG INHALER INHALATION SCH ×2 (08:06→19:17)
[2021-01-24] MEDS: VENLAFAXINE HCL ER 75 MG CAP PO SCH (08:12)
[2021-01-24] MEDS: PANTOPRAZOLE 40 MG TABLET PO SCH ×2 (08:12→17:26)
[2021-01-24] MEDS: INSULIN ASPART (NovoLOG) 100 UNIT/ML VIAL SQ SCH ×4 (08:12→20:57)
[2021-01-24] MEDS: CHOLECALCIFEROL 25 MCG (1000 IU) TABLET PO SCH (08:12)
[2021-01-24] MEDS: lamoTRIgine 100 MG TAB PO SCH ×2 (08:12→20:57)
[2021-01-24] MEDS: HEPARIN SODIUM,PORCINE/PF 5,000 UNIT/0.5 ML SYRINGE SQ SCH (08:13)
[2021-01-24] MEDS: LOSARTAN-HCTZ 50-12.5 MG 1 EACH TAB PO SCH (08:13)
[2021-01-24] MEDS: AZITHROMYCIN 500 MG TAB PO SCH (08:13)
[2021-01-24] MEDS: FLUTICASONE 50MCG/SPRAY NASAL 16GM EA NOSTRIL SCH (08:13)
--- NOTE | 2021-01-24 11:30 | P.CRDCN ---
History of Present Illness History of present illness: HISTORY OF PRESENTING ILLNESS This is a pleasant 65-year-old male with history of asthma, COPD, diabetes mellitus type 2, obstructive sleep apnea compliant with CPAP, heart murmur, tobacco abuse quit 14 years ago, family history of father with a "bad heart valve "who presents secondary to symptoms of fevers, chills, cough, increased shortness breath. He states the symptoms have been going on for approximately a week. Patient presented to the ER and was found to have right upper lobe p neumonia by CTA. White blood cell on presentation 19.2, hemoglobin 13.2, platelets 232, d-dimer 0.81, creatinine 0.83, glucose 254, troponin less than 0.012, proBNP 1120. On further questioning he does admit to some chest pressure however states this is mainly with deep inspiration. No nausea, diaphoresis. He was also found to be in new onset atrial fibrillation with no prior history of this. He states he has been feeling more lethargic over the last month and a half and is unsure if this is related to the A. fib. He denies feeling any palpitations or increased dyspnea on exertion over the last month and a half however has been feeling somewhat more lethargic or fatigue. He admits that normally at home he is supposed to take Lasix however does not. He does not follow with any cardi ologist. He believes his legs are mildly more swollen today however has also been sitting in chair most of the day. No history of heart failure. No orthopnea. He admitted to initial coughing up mild blood tinged sputum however this has improved. He admits his chest pain resolved once he coughed up some mucous last night. EKG from 01/22/2021 shows A. fib, normal axis, poor R-wave progression, frequent PVCs, nonspecific T-wave flattening. This was read out as sinus rhythm however no P waves with coarse A. fib. Telemetry reviewed with Sheree dillard with controlled heart rates mainly in the 50s to 60s, occasional pauses mainly at night up to 2.4 seconds and one episode of 13 beat run of nonsustained VT. He had venous ultrasound which showed no DVT. REVIEW OF SYSTEMS At the time of my exam: CONSTITUTIONAL: +fever, +chills. CARDIOVASCULAR: +chest pain, +shortness of breath, no orthopnea, PND or palpitations. RESPIRATORY: Denies cough. GASTROINTESTINAL: Denies abdominal pain, diarrhea, constipation, nausea or vomiting. MUSCULOSKELETAL: Denies myalgias. NEUROLOGIC: Denies numbness, tingling or weakness. ENDOCRINE: Denies fatigue, weight change, polydipsia or polyurina. GENITOURINARY: Denies burning, hematuria or urgency with micturation. HEMATOLOGIC: Denies history of anemia or bleeding. PHYSICAL EXAMINATION Vital signs reviewed. CONSTITUTIONAL: No apparent distress, obese. HEENT: Head is normocephalic. Pupils are equal, round. Sclerae anicteric. Mucous membranes of the mouth are moist. No JVD. No carotid bruit. CHEST EXAMINATION: Lungs are coarse bilaterally, worse RUL. HEART EXAMINATION: Irregular rate and rhythm. S1, S2 heard. 2/6 systolic murmur, no gallops or rub. ABDOMEN: Soft, nontender. Positive bowel sounds. EXTREMITIES: 2+ peripheral pulses, no lower extremity edema and no calf tenderness. NEUROLOGIC EXAMINATION: Patient is awake, alert and oriented x3. ASSESSMENT 1. New-onset atrial fibrillation, persistent 2. Asymptomatic pauses of up to 2.4 seconds while sleeping 3. Acute pneumonia, right upper lung 4. History of COPD, asthma 5. Obstructive sleep apnea 6. Prior history of tobacco abuse since quit 7. Hypertension 8. Hyperlipidemia 9. Nonsustained VT 13 beats asymptomatic 10. Mild lower extremity edema, may be related to venous insufficiency versus less likely heart failure. Initial proBNP 1120. 11. Obesity 12. Diabetes mellitus type 2, patient blames this on steroids 13. Atypical chest pain, likely related to pneumonia, no ACS PLAN Patient with new onset of atrial fibrillation with predominantly controlled ventricular rates, occasional bradycardia mainly at night with up to 2.4 second pauses. Patient also noted to have incidental nonsustained VT for 13 beats. Patient also with atypical chest pain which appears related to his pneumonia with troponin normal. Check a 2-D echo to evaluate for left ventricular function. We will start anticoagulation with Xarelto 20mg daily. Patient is off any rate control medications with occasional bradycardia and controlled ventricular rates. May consider rhythm control strategy as he was somewhat lethargic, fatigued over the last month and a half however would allow for him t o recover from pneumonia first. Further recommendations to follow. Past Medical History Past Medical History: Asthma, Hypertension History of Any Multi-Drug Resistant Organisms: None Reported Past Surgical History: Hernia Repair, Orthopedic Surgery Additional Past Surgical History / Comment(s): R knee, sinus x 2 Past Psychological History: No Psychological Hx Reported Smoking Status: Former smoker Past Alcohol Use History: None Reported Past Drug Use History: None Reported Medications and Allergies Home Medications Medication Instructions Recorded Confirmed Type Budesonide-Formot 160-4.5 Mcg 2 puff INHALATION RT-BID 11/04/20 01/22/21 History [Symbicort 160-4.5 Mcg Inhaler] Fluticasone Nasal [place] [Flonase 2 spr EA NOSTRIL RT-DAILY 11/04/20 01/22/21 History Nasal [place]] Losartan/Hydrochlorothiazide 1 tab PO DAILY 11/04/20 01/22/21 History [Losartan-Hctz 100-25 mg Tab] Montelukast [Singulair] 10 mg PO HS 11/04/20 01/22/21 History Testosterone Cypionate 200 mg IM Q14D 11/04/20 01/22/21 History [Depo-Testosterone] metFORMIN HCL [Glucophage] 500 mg PO HS 11/04/20 01/22/21 History Albuterol Sulfate [Proair Hfa] 2 puff INHALATION RT-QID PRN 01/22/21 01/22/21 History Alpha Lipoic Acid W/ Biotin 1 cap PO BID 01/22/21 01/22/21 History Cholecalciferol (Vitamin D3) 125 mcg PO DAILY 01/22/21 01/22/21 History [Vitamin D3 (5000 Iu)] Gamma E 1 cap PO DAILY 01/22/21 01/22/21 History Macuguard 1 cap PO DAILY 01/22/21 01/22/21 History Nad+ 1 cap PO DAILY 01/22/21 01/22/21 History Venlafaxine HCl [Effexor XR] 75 mg PO DAILY 01/22/21 01/22/21 History lamoTRIgine [LaMICtal] 100 mg PO BID 01/22/21 01/22/21 History predniSONE 5 mg PO DAILY 01/22/21 01/22/21 History Allergies Allergy/AdvReac Type Severity Reaction Status Date / Time No Known Allergies Allergy Verified 01/22/21 14:48 Physical Exam Vitals: Vital Signs Temp Pulse Resp BP Pulse Ox 01/24/21 07:50 97.5 F L 52 L 18 134/75 97 01/24/21 02:00 97.3 F L 87 22 99/56 94 L 01/23/21 19:56 97.6 F 55 L 20 121/64 95 01/23/21 16:40 95 01/23/21 14:00 97.8 F 70 18 130/73 95 Intake and Output 01/23/21 01/24/21 01/24/21 22:59 06:59 14:59 Other: Voiding Method Toilet # Voids 3 Results 01/23/21 06:19 01/24/21 05:21 Cardiac Enzymes 01/23/21 Range/Units 18:16 Troponin I <0.012 (0.000-0.034) ng/mL Comprehensive Metabolic Panel 01/24/21 Range/Units 05:21 Potassium 4.4 (3.5-5.1) mmol/L Current Medications Generic Name Dose Route Start Last Admin Trade Name Freq PRN Reason Stop Dose Admin Alprazolam 0.25 mg 01/22/21 20:04 Alprazolam 0.25 Mg Tab PO TID PRN Anxiety Azithromycin 500 mg 01/23/21 12:00 01/24/21 08:13 Azithromycin 500 Mg Tab PO 01/27/21 12:01 500 mg DAILY KYLE Administration Budesonide/Formoterol Fumarate 2 puff 01/22/21 20:00 01/24/21 08:06 Symbicort 160-4.5 Mcg Inhaler INHALATION 2 puff RT-BID KYLE Administration Cholecalciferol 125 mcg 01/23/21 09:00 01/24/21 08:12 Cholecalciferol 25 Mcg (1000 Iu) Tablet PO 125 mcg DAILY KYLE Administration Fluticasone Propionate 2 spray 01/23/21 08:00 01/24/21 08:13 Fluticasone 50mcg/[place] Nasal 16gm EA NOSTRIL 2 spray RT-DAILY KYLE Administration HCTZ/Losartan Potassium 2 each 01/23/21 09:00 01/24/21 08:13 Losartan-Hctz 50-12.5 Mg 1 Each Tab PO 2 each DAILY KYLE Administration Heparin Sodium (Porcine) 5,000 unit 01/22/21 21:00 01/24/21 08:13 Heparin Sodium,Porcine/Pf 5,000 Unit/0.5 Ml Syringe SQ 5,000 unit Q12HR KYLE Administration Sodium Chloride 1,000 mls @ 100 mls/hr 01/22/21 14:30 01/24/21 08:11 Saline 0.9% IV 100 mls/hr .Q10H KYLE Administration Ceftriaxone Sodium 2 gm/ 50 mls @ 100 mls/hr 01/23/21 16:00 01/23/21 16:31 Sodium Chloride IVPB 01/25/21 16:01 100 mls/hr Q24H KYLE Administration Insulin Aspart 0 unit 01/22/21 21:00 01/24/21 08:12 Insulin Aspart (Novolog) 100 Unit/Ml Vial SQ 3 unit ACHS KYLE Administration Protocol Lamotrigine 100 mg 01/22/21 21:00 01/24/21 08:12 Lamotrigine 100 Mg Tab PO 100 mg BID KYLE Administration Metformin HCl 500 mg 01/22/21 21:00 01/23/21 20:55 Metformin 500 Mg Tab PO 500 mg HS KYLE Administration Methylprednisolone Sodium Succinate 60 mg 01/22/21 18:00 01/24/21 05:19 Methylprednisolone Sod Succi 125 Mg/2 Ml Vial IV 60 mg Q6HR KYLE Administration Miscellaneous Information 1 each 01/22/21 14:23 Pneumonia Protocol Utilized 1 Each Misc PO ONCE PRN Per Protocol Montelukast Sodium 10 mg 01/22/21 21:00 01/23/21 20:55 Montelukast 10 Mg Tab PO 10 mg HS KYLE Administration Multivitamins 1 each 01/23/21 12:00 01/23/21 07:40 Multivitamins, Thera 1 Each Tab PO 1 each DAILY@1200 KYLE Administration Pantoprazole Sodium 40 mg 01/23/21 21:00 01/24/21 08:12 Pantoprazole 40 Mg Tablet PO 40 mg AC-BID KYLE Administration Temazepam 15 mg 01/22/21 20:04 Temazepam 15 Mg Cap PO HS PRN Insomnia Venlafaxine HCl 75 mg 01/23/21 09:00 01/24/21 08:12 Venlafaxine Hcl Er 75 Mg Cap PO 75 mg DAILY KYLE Administration Intake and Output 01/23/21 01/24/21 01/24/21 22:59 06:59 14:59 Other: Voiding Method Toilet # Voids 3 01/23/21 06:19 01/24/21 05:21
[2021-01-24 11:52] LABS: Glucose,Whole Blood 210 mg/dL (75-99)
[2021-01-24] MEDS: MULTIVITAMINS, THERA 1 EACH TAB PO SCH (12:13)
--- NOTE | 2021-01-24 13:32 | P.CNPUL ---
History of Present Illness Consult date: 01/24/21 Requesting physician: Fred Gil Reason for consult: dyspnea, chest pain, abnormal CXR/CT, other Chief complaint: Shortness of breath, cough, hemoptysis, fever History of present illness: 65-year-old white male patient with past medical history of moderately persistent bronchial asthma, obstructive sleep apnea on CPAP therapy at a pressure of 18 cm of water and patient has been very compliant with this CPAP therapy, obesity, hypertension, and recent history of COVID 19 pneumonia in [facility] 2020, for which the patient was treated with monoclonal antibodies in the form of BAM and a course of Decadron. Patient did have bilateral pulmonary infiltrates consistent with pneumonia that ultimately improved. Patient did not require hospitalization for COVID 19 pneumonia. On 01/22/2021 patient came into the emergency department complaining of chest discomfort, fevers, chills, and hemoptysis. He is having right-sided chest discomfort. His symptoms have been ongoing for about a week. He was seen at an outpatient urgent care clinic was tested for COVID 19 and was found to be negative. His chest x-ray showed new right upper lobe pneumonic consolidation. EKG showed new onset atrial fibrillation with a rate of 63 bpm. Patient did have leukocytosis on admission, with a white blood cell count of 19.2, hemoglobin of 13.2, electrolytes and renal profile were fairly unremarkable, troponins were less than 0.012, proBNP was 1120, urinalysis showed no evidence of infection, Legionella urine antigen was negative, mycoplasma pneumonia IgG was 1.45, and mycoplasma pneumonia IgM was negative. D-dimer was 0.81, CT chest was completed showing no evidence of pulmonary embolism, and evidence of large right upper lobe consolidation, related to community acquired pneumonia. Lower extremity Dopplers showed no evidence of deep vein thrombosis. Patient was started on a combination of azithromycin and Rocephin, he is on IV steroids. Cardiology is following and patient has been started on Zaroxolyn for anticoagulation. On today's exam patient is on room air, he is not better recliner, his had no fevers overnight, vital signs have been stable, he still have an right-sided chest discomfort, with deep inspiration. Today's labs show improvement of patient's white blood cell count which is down to 12.8. Blood and sputum cultures have been sent. Sputum culture showed few PMNs, few gram-positive cocci, and final cultures pending, blood cultures have shown no growth thus far at 24 hour isabel. Review of Systems All systems: negative Constitutional: Denies chills, Denies fever Eyes: denies blurred vision, denies pain Ears, nose, mouth and throat: Denies headache, Denies sore throat Cardiovascular: Denies chest pain, Denies shortness of breath Respiratory: Reports dyspnea, Denies cough Gastrointestinal: Denies abdominal pain, Denies diarrhea, Denies nausea, Denies vomiting Musculoskeletal: Denies myalgias Integumentary: Denies pruritus, Denies rash Neurological: Denies numbness, Denies weakness Psychiatric: Denies anxiety, Denies depression Endocrine: Denies fatigue, Denies weight change Past Medical History Past Medical History: Asthma, Hypertension History of Any Multi-Drug Resistant Organisms: None Reported Past Surgical History: Hernia Repair, Orthopedic Surgery Additional Past Surgical History / Comment(s): R knee, sinus x 2 Past Psychological History: No Psychological Hx Reported Smoking Status: Former smoker Past Alcohol Use History: None Reported Past Drug Use History: None Reported Medications and Allergies Home Medications Medication Instructions Recorded Confirmed Type Budesonide-Formot 160-4.5 Mcg 2 puff INHALATION RT-BID 11/04/20 01/22/21 History [Symbicort 160-4.5 Mcg Inhaler] Fluticasone Nasal [place] [Flonase 2 spr EA NOSTRIL RT-DAILY 11/04/20 01/22/21 H istory Nasal [place]] Losartan/Hydrochlorothiazide 1 tab PO DAILY 11/04/20 01/22/21 History [Losartan-Hctz 100-25 mg Tab] Montelukast [Singulair] 10 mg PO HS 11/04/20 01/22/21 History Testosterone Cypionate 200 mg IM Q14D 11/04/20 01/22/21 History [Depo-Testosterone] metFORMIN HCL [Glucophage] 500 mg PO HS 11/04/20 01/22/21 History Albuterol Sulfate [Proair Hfa] 2 puff INHALATION RT-QID PRN 01/22/21 01/22/21 History Alpha Lipoic Acid W/ Biotin 1 cap PO BID 01/22/21 01/22/21 History Cholecalciferol (Vitamin D3) 125 mcg PO DAILY 01/22/21 01/22/21 History [Vitamin D3 (5000 Iu)] Gamma E 1 cap PO DAILY 01/22/21 01/22/21 History Macuguard 1 cap PO DAILY 01/22/21 01/22/21 History Nad+ 1 cap PO DAILY 01/22/21 01/22/21 History Venlafaxine HCl [Effexor XR] 75 mg PO DAILY 01/22/21 01/22/21 History lamoTRIgine [LaMICtal] 100 mg PO BID 01/22/21 01/22/21 History predniSONE 5 mg PO DAILY 01/22/21 01/22/21 History Allergies Allergy/AdvReac Type Severity Reaction Status Date / Time No Known Allergies Allergy Verified 01/22/21 14:48 Physical Exam Vitals: Vital Signs Temp Pulse Resp BP Pulse Ox 01/24/21 07:50 97.5 F L 52 L 18 134/75 97 01/24/21 02:00 97.3 F L 87 22 99/56 94 L 01/23/21 19:56 97.6 F 55 L 20 121/64 95 01/23/21 16:40 95 01/23/21 14:00 97.8 F 70 18 130/73 95 Intake and Output 01/23/21 01/24/21 01/24/21 22:59 06:59 14:59 Other: Voiding Method Toilet # Voids 3 GENERAL EXAM: Alert, very pleasant, 65-year-old white male, on room air, with pulse ox of 95% comfortable in no apparent distress. HEAD: Normocephalic/atraumatic. EYES: Normal reaction of pupils, equal size. Conjunctiva pink, sclera white. NOSE: Clear with pink turbinates. THROAT: No erythema or exudates. NECK: No masses, no JVD, no thyroid enlargement, no adenopathy. CHEST: No chest wall deformity. Symmetrical expansion. LUNGS: Equal air entry with no crackles, wheeze, rhonchi or dullness. CVS: Regular rate and rhythm, normal S1 and S2, no gallops, no murmurs, no rubs ABDOMEN: Soft, nontender. No hepatosplenomegaly, normal bowel sounds, no guarding or rigidity. EXTREMITIES: No clubbing, no edema, no cyanosis, 2+ pulses and upper and lower extremities. MUSCULOSKELETAL: Muscle strength and tone normal. SPINE: No scoliosis or deformity SKIN: No rashes CENTRAL NERVOUS SYSTEM: Alert and oriented -3. No focal deficits, tone is normal in all 4 extremities. PSYCHIATRIC: Alert and oriented -3. Appropriate affect. Intact judgment and insight. Results - Laboratory Findings CBC and BMP: 01/23/21 06:01/24/21 05:21 PT/INR, D-dimer PT 10.6 sec (9.0-12.0) 01/22/21 12:37 INR 1.0 (<1.2) 01/22/21 12:37 D-Dimer 0.81 mg/L FEU (<0.60) H 01/22/21 12:37 Abnormal lab findings: Abnormal Labs 01/22/21 01/22/21 01/22/21 12:37 12:37 12:37 WBC 19.2 H RBC 4.26 L Hct MCH RDW 16.2 H Immature Gran # Neutrophils # 17.5 H Lymphocytes # 0.6 L Eosinophils # D-Dimer 0.81 H Chloride BUN 23 H BUN/Creatinine Ratio Glucose 254 H POC Glucose (mg/dL) Calcium Urine Protein Mycoplasma pneumon IgG 01/22/21 01/22/21 01/22/21 12:37 20:26 20:45 WBC RBC Hct MCH RDW Immature Gran # Neutrophils # Lymphocytes # Eosinophils # D-Dimer Chloride BUN BUN/Creatinine Ratio Glucose POC Glucose (mg/dL) 177 H Calcium Urine Protein Trace H Mycoplasma pneumon IgG 1.45 H 01/23/21 01/23/21 01/23/21 06:19 06:19 07:14 WBC 12.87 H RBC 4.04 L Hct 39.0 L MCH 32.2 H RDW 16.6 H Immature Gran # 0.08 H Neutrophils # 11.44 H Lymphocytes # Eosinophils # 0 L D-Dimer Chloride 110 H BUN BUN/Creatinine Ratio 25.00 H Glucose 208 H POC Glucose (mg/dL) 191 H Calcium 8.5 L Urine Protein Mycoplasma pneumon IgG 01/23/21 01/23/21 01/23/21 11:41 16:40 20:21 WBC RBC Hct MCH RDW Immature Gran # Neutrophils # Lymphocytes # Eosinophils # D-Dimer Chloride BUN BUN/Creatinine Ratio Glucose POC Glucose (mg/dL) 227 H 219 H 215 H Calcium Urine Protein Mycoplasma pneumon IgG 01/24/21 01/24/21 07:18 11:51 WBC RBC Hct MCH RDW Immature Gran # Neutrophils # Lymphocytes # Eosinophils # D-Dimer Chloride BUN BUN/Creatinine Ratio Glucose POC Glucose (mg/dL) 179 H 210 H Calcium Urine Protein Mycoplasma pneumon IgG - Diagnostic Findings Chest x-ray: report reviewed, image reviewed CT scan - chest: report reviewed, image reviewed Additional studies: EKG reviewed, venous Doppler of lower extremities reviewed Assessment and Plan Plan: Assessment: #1. Acute right upper lobe pneumonia, COVID-19 has been ruled out, this possibly community-acquired pneumonia, chest x-ray showed posterior inferior right upper lung pneumonic masslike consolidation. Legionella urine antigen was negative, mycoplasma pneumonia IgG was mildly elevated at 1.45, and IgM was negative #2. Shortness of breath, fever, pleuritic chest discomfort, hemoptysis related to the above #3. Recent history of COVID-19 pneumonia in October 2020, patient received BAM and Decadron, did not require hospitalization #4. Moderately persistent bronchial asthma #5. Obesity with a BMI of 34.3 kg/m #6. Obstructive sleep apnea on CPAP therapy at a pressure of 18 cm of water #7. New onset atrial fibrillation, cardiology is following #8. Diabetes mellitus type 2 #9. 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 I reviewed the nurse practitioner's note and agree with the documented findings and plan of care. Lung sounds are positive for diminished breath sounds. The findings and the impression was discussed with the patient. I attest to the documentation by the nurse practitioner. Time with Patient: Greater than 30
[2021-01-24 16:50] LABS: Glucose,Whole Blood 230 mg/dL (75-99)
[2021-01-24] MEDS: methylPREDNISolone SOD SUCCI 40 MG/ML 1 ML VIAL IV SCH ×2 (17:26→23:17)
[2021-01-24] MEDS: RIVAROXABAN 20 MG TAB PO SCH (17:27)
--- NOTE | 2021-01-24 18:04 | PN ---
PROGRESS NOTE DATE OF SERVICE: 01/24/2021 This 65-year-old gentleman who was admitted with right upper lobe pneumonia is on broad- spectrum IV antibiotics. Patient is feeling much better. No chest pain. No palpitations. No fever. Pulmonary is following the patient as well as Cardiology. PHYSICAL EXAMINATION: Alert and oriented times three. Pulse 79. Blood pressure 118/77. Respirations 18. Temperature 97.8, pulse ox 98% on room air. HEENT: Conjunctivae normal. NECK: No jugular venous distention. CARDIOVASCULAR SYSTEM: S1, S2 muffled. RESPIRATORY SYSTEM: Breath sounds diminished at the bases. A few rhonchi. No crackles. ABDOMEN: Soft. NERVOUS SYSTEM: No focal deficits. LABS: WBC 12.8, hemoglobin 13, glucose noted. Plasma IgG is positive, IgM is negative. ASSESSMENT: 1. Acute right upper lobe pneumonia possibly gram-negative with possibly Covid related, improving. 2. History of recent COVID-19 infection as well as treated with BAM. 3. Increased WBC. 4. Diabetes mellitus type 2 possibly new onset. 5. Acute atrial fibrillation with fast ventricular rate. 6. History of PVCs. 7. History of asthma, chronic, intermittent. 8. Hypertension. 9. Possible sleep apnea. 10.History of degenerative joint disease. 11.History of hernia repair. 12.Obesity with body mass index of 34. 13.FULL CODE. RECOMMENDATIONS AND DISCUSSION: Recommend to continue current medications, management and symptomatic treatment. Continue broad-spectrum IV antibiotics. Closely follow with Pulmonary. 24 hour pulse ox monitoring. Otherwise continue to monitor. Prognosis guarded. Further recommendations to follow. MMODL / IJN: [id number] /
[2021-01-24 20:38] LABS: Glucose,Whole Blood 241 mg/dL (75-99)
[2021-01-24] MEDS: MONTELUKAST 10 MG TAB PO SCH (20:57)
[2021-01-24] MEDS: metFORMIN 500 MG TAB PO SCH (20:57)
[2021-01-25 07:32] LABS: Glucose,Whole Blood 158 mg/dL (75-99)
[2021-01-25] MEDS: INSULIN ASPART (NovoLOG) 100 UNIT/ML VIAL SQ SCH ×4 (07:37→21:36)
[2021-01-25] MEDS: AZITHROMYCIN 500 MG TAB PO SCH (07:38)
[2021-01-25] MEDS: PANTOPRAZOLE 40 MG TABLET PO SCH ×2 (07:38→17:48)
[2021-01-25] MEDS: CHOLECALCIFEROL 25 MCG (1000 IU) TABLET PO SCH (07:38)
[2021-01-25] MEDS: methylPREDNISolone SOD SUCCI 40 MG/ML 1 ML VIAL IV SCH ×3 (07:38→23:23)
[2021-01-25] MEDS: VENLAFAXINE HCL ER 75 MG CAP PO SCH (07:38)
[2021-01-25] MEDS: lamoTRIgine 100 MG TAB PO SCH ×2 (07:38→21:37)
[2021-01-25] MEDS: LOSARTAN-HCTZ 50-12.5 MG 1 EACH TAB PO SCH (07:38)
[2021-01-25] MEDS: FLUTICASONE 50MCG/SPRAY NASAL 16GM EA NOSTRIL SCH (07:39)
[2021-01-25] MEDS: SYMBICORT 160-4.5 MCG INHALER INHALATION SCH ×2 (08:00→19:56)
--- NOTE | 2021-01-25 12:10 | ECHOF ---
Referral Reason:lv function MEASUREMENTS -------- HEIGHT: 182.9 cm WEIGHT: 117.9 kg BP: 144/66 RVIDd: 4.4 cm (< 3.3) IVSd: 1.1 cm (0.6 - 1.1) LVIDd: 5.7 cm (3.9 - 5.3) LVPWd: 1.4 cm (0.6 - 1.1) IVSs: 1.4 cm LVIDs: 4.9 cm LVPWs: 1.5 cm Ao Diam: 3.7 cm (2.0 - 3.7) AV Cusp: 1.5 cm (1.5 - 2.6) LA Diam: 5.9 cm (2.7 - 3.8) MV EXCURSION: 20.043 mm (> 18.000) MV EF SLOPE: 60 mm/s (70 - 150) EPSS: 1.1 cm RAP: 5.00 mmHg RVSP: 28.52 mmHg FINDINGS -------- Paced rhythm. Morbid Obesity This was a techncally difficult study with suboptimal views, , Lumason utilized for enhancement of images. The left ventricular size is normal. Overall left ventricular systolic function is mild-moderately impaired with, an EF between 40 - 45 %. The right ventricle is moderately enlarged. The left atrial size is normal. The right atrial size is normal. 5.0mg OF Lumason UTLIZED: 2 OR MORE WALL SEGMENTS NOT VISUALIZED. The aortic valve was not well visualized. Mild mitral regurgitation is present. Mild tricuspid regurgitation present. Right ventricular systolic pressure is normal at < 35 mmHg. The pulmonic valve was not well visualized. The aortic root size is normal. There is no pericardial effusion. CONCLUSIONS -------- 1. Morbid Obesity 2. This was a techncally difficult study with suboptimal views, , Lumason utilized for enhancement of images. 3. The left ventricular size is normal. 4. Overall left ventricular systolic function is mild-moderately impaired with, an EF between 40 - 45 %. 5. The right ventricle is moderately enlarged. 6. The left atrial size is normal. 7. The right atrial size is normal. 8. 5.0mg OF [place] UTLIZED: 2 OR MORE WALL SEGMENTS NOT VISUALIZED. 9. The aortic valve was not well visualized. 10. Mild mitral regurgitation is present. 11. Mild tricuspid regurgitation present. 12. The pulmonic valve was not well visualized. 13. The aortic root size is normal. 14. There is no pericardial effusion. ECONOMICS PROFESSOR: Krissy Crocker RDCS
[2021-01-25 12:12] LABS: Glucose,Whole Blood 164 mg/dL (75-99)
--- NOTE | 2021-01-25 12:41 | P.PN ---
Subjective Progress Note Date: 01/25/21 HISTORY OF PRESENT ILLNESS: This is a pleasant 65-year-old male with history of asthma, COPD, diabetes mellitus type 2, obstructive sleep apnea compliant with CPAP, heart murmur, to bacco abuse quit 14 years ago, family history of father with a "bad heart valve "who presents secondary to symptoms of fevers, chills, cough, increased shortness breath. He states the symptoms have been going on for approximately a week. Patient presented to the ER and was found to have right upper lobe pneumonia by CTA. White blood cell on presentation 19.2, hemoglobin 13.2, platelets 232, d-dimer 0.81, creatinine 0.83, glucose 254, troponin less than 0.012, proBNP 1120. On further questioning he does admit to some chest pressure however states this is mainly with deep inspiration. No nausea, diaphoresis. He was also found to be in new onset atrial fibrillation with no prior history of this. He states he has been feeling more lethargic over the last month and a half and is unsure if this is related to the A. fib. He denies feeling any palpitations or increased dyspnea on exertion over the last month and a half however has been feeling somewhat more lethargic or fatigue. He admits that normally at home he is supposed to take Lasix however does not. He does not follow with any chinese instructor. He believes his legs are mildly more swollen today however has also been sitting in chair most of the day. No history of heart failure. No orthopnea. He admitted to initial coughing up mild blood tinged sputum however this has improved. He admits his chest pain resolved once he coughed up some mucous last night. EKG from 01/22/2021 shows A. fib, normal axis, poor R-wave progression, frequent PVCs, nonspecific T-wave flattening. This was read out as sinus rhythm however no P waves with coarse A. fib. Telemetry reviewed with AAlexia dillard with controlled heart rates mainly in the 50s to 60s, occasional pauses mainly at night up to 2.4 seconds and one episode of 13 beat run of nonsustained VT. He had venous ultrasound which showed no DVT. 01/25/2021 Patient examined at the bedside by Dr. Gil. Patient remains in afib with controlled ventricular rates. He has been placed on Xarelto. He denies chest pain or pressure. Currently denies shortness of breath. Vital signs stable. Echocardiogram completed revealed ejection fraction 40-45%, mild mitral regurgitation, mild tricuspid regurgitation. PHYSICAL EXAM: VITAL SIGNS: Reviewed. GENERAL: Well-developed in no acute distress. NECK: Supple. No JVD or thyromegaly LUNGS: Respirations even and unlabored. Lungs coarse bilaterally. HEART: Irregular rate and rhythm. S1 and S2 heard. Systolic murmur noted. EXTREMITIES: Normal range of motion. No clubbing or cyanosis. Peripheral pulses intact. No lower extremity edema ASSESSMENT: 1. New-onset atrial fibrillation, persistent 2. Asymptomatic pauses of up to 2.4 seconds while sleeping 3. Acute pneumonia, right upper lung 4. History of COPD, asthma 5. Obstructive sleep apnea 6. Prior history of tobacco abuse since quit 7. Hypertension 8. Hyperlipidemia 9. Nonsustained VT 13 beats asymptomatic 10. Mild lower extremity edema, may be related to venous insufficiency versus less likely heart failure. Initial proBNP 1120. 11. Obesity 12. Diabetes mellitus type 2, patient blames this on steroids 13. Atypical chest pain, likely related to pneumonia, no ACS 14. Cardiomyopathy, unclear if ischemic or nonischemic, may be secondary to atrial fibrillation PLAN: Continue current cardiac medications Continue anticoagulation with Xarelto No further inpatient recommendations from a cardiac standpoint Patient to follow up outpatient with Dr. Gil We will sign off. Please reconsult if needed Nurse practitioner note has been reviewed by physician. Signing provider agrees with the documented findings, assessment, and plan of care. Objective - Vital Signs Vital signs: Vital Signs Temp 97.7 F 01/25/21 07:58 Pulse 55 L 01/25/21 07:58 Resp 16 01/25/21 07:58 BP 144/76 01/25/21 07:58 Pulse Ox 96 01/25/21 07:58 Intake & Output 01/24/21 01/25/21 01/25/21 18:59 06:59 18:59 Other: Voiding Method Toilet Toilet Toilet # Voids 1 # Bowel Movements 0 - Labs CBC & Chem 7: 01/23/21 06:19 01/24/21 05:21 Labs: Abnormal Lab Results - Last 24 Hours (Table) 01/24/21 01/24/21 01/25/21 Range/Units 16:49 20:37 07:31 POC Glucose (mg/dL) 230 H 241 H 158 H (75-99) mg/dL 01/25/21 Range/Units 12:10 POC Glucose (mg/dL) 164 H (75-99) mg/dL Microbiology - Last 24 Hours (Table) 01/23/21 19:39 Gram Stain - Final Sputum Sputum Culture - Final 01/22/21 12:37 Blood Culture - Preliminary Blood No Growth after 48 hours 01/22/21 12:42 Blood Culture - Preliminary Blood No Growth after 48 hours
--- NOTE | 2021-01-25 12:46 | P.PN ---
Subjective Progress Note Date: 01/25/21 Principal diagnosis: Shortness of breath, cough, hemoptysis, fever 65-year-old white male patient with past medical history of moderately persistent bronchial asthma, obstructive sleep apnea on CPAP therapy at a pressure of 18 cm of water and patient has been very compliant with this CPAP therapy, obesity, hypertension, and recent history of COVID 19 pneumonia in October 2020, for which the patient was treated with monoclonal antibodies in the form of BAM and a course of Decadron. Patient did have bilateral pulmonary infiltrates consistent with pneumonia that ultimately improved. Patient did not require hospitalization for COVID 19 pneumonia. On 01/22/2021 patient came into the emergency department complaining of chest discomfort, fevers, chills, and hemoptysis. He is having right-sided chest discomfort. His symptoms have been ongoing for about a week. He was seen at an outpatient urgent care clinic was tested for COVID 19 and was found to be negative. His chest x-ray showed new right upper lobe pneumonic consolidation. EKG showed new onset atrial fibrilla tion with a rate of 63 bpm. Patient did have leukocytosis on admission, with a white blood cell count of 19.2, hemoglobin of 13.2, electrolytes and renal profile were fairly unremarkable, troponins were less than 0.012, proBNP was 1120, urinalysis showed no evidence of infection, Legionella urine antigen was negative, mycoplasma pneumonia IgG was 1.45, and mycoplasma pneumonia IgM was negative. D-dimer was 0.81, CT chest was completed showing no evidence of pulmonary embolism, and evidence of large right upper lobe consolidation, related to community acquired pneumonia. Lower extremity Dopplers showed no evidence of deep vein thrombosis. Patient was started on a combination of azithromycin and Rocephin, he is on IV steroids. Cardiology is following and patient has been started on Zaroxolyn for anticoagulation. On today's exam patient is on room air, he is not better recliner, his had no fevers overnight, vital signs have been stable, he still have an right-sided chest discomfort, with deep inspiration. Today's labs show improvement of patient's white blood cell count which is down to 12.8. Blood and sputum cultures have been sent. Sputum culture showed few PMNs, few gram-positive cocci, and final cultures pending, blood cultures have shown no growth thus far at 24 hour isabel. On 01/25/2021 patient is seen in follow-up on medical surgical floor. He is awake and alert, in no acute distress, he did wear his CPAP last night at his home settings, he is currently on room air with a pulse ox of 96%, he is breathing comfortably, no recurrence of hemoptysis, no fever or chills, no complaints of chest discomfort. He remains on combination of azithromycin and Rocephin, has had no fevers overnight. Blood and sputum cultures have shown no growth, sputum Legionella culture is pending. However Legionella urine antigen was negative. No new chest x-rays, vital signs have been stable overnight, his last set of blood work showed improvement in his leukocytosis, his follow-up blood work is pending for today. Objective - Vital Signs Vital signs: Vital Signs Temp 97.7 F 01/25/21 07:58 Pulse 55 L 01/25/21 07:58 Resp 16 01/25/21 07:58 BP 144/76 01/25/21 07:58 Pulse Ox 96 01/25/21 07:58 Intake & Output 01/24/21 01/25/21 01/25/21 18:59 06:59 18:59 Other: Voiding Method Toilet Toilet Toilet # Voids 1 # Bowel Movements 0 - Exam GENERAL EXAM: Alert, very pleasant, 65-year-old white male, on room air, with pulse ox of 95% comfortable in no apparent distress. HEAD: Normocephalic/atraumatic. EYES: Normal reaction of pupils, equal size. Conjunctiva pink, sclera white. NOSE: Clear with pink turbinates. THROAT: No erythema or exudates. NECK: No masses, no JVD, no thyroid enlargement, no adenopathy. CHEST: No chest wall deformity. Symmetrical expansion. LUNGS: Equal air entry with no crackles, wheeze, rhonchi or dullness. CVS: Regular rate and rhythm, normal S1 and S2, no gallops, no murmurs, no rubs ABDOMEN: Soft, nontender. No hepatosplenomegaly, normal bowel sounds, no guarding or rigidity. EXTREMITIES: No clubbing, no edema, no cyanosis, 2+ pulses and upper and lower extremities. MUSCULOSKELETAL: Muscle strength and tone normal. SPINE: No scoliosis or deformity SKIN: No rashes CENTRAL NERVOUS SYSTEM: Alert and oriented -3. No focal deficits, tone is normal in all 4 extremities. PSYCHIATRIC: Alert and oriented -3. Appropriate affect. Intact judgment and insight. - Labs CBC & Chem 7: 01/23/21 06:19 01/24/21 05:21 Labs: Abnormal Lab Results - Last 24 Hours (Table) 01/24/21 01/24/21 01/25/21 Range/Units 16:49 20:37 07:31 POC Glucose (mg/dL) 230 H 241 H 158 H (75-99) mg/dL 01/25/21 Range/Units 12:10 POC Glucose (mg/dL) 164 H (75-99) mg/dL Microbiology - Last 24 Hours (Table) 01/23/21 19:39 Gram Stain - Final Sputum Sputum Culture - Final 01/22/21 12:37 Blood Culture - Preliminary Blood No Growth after 48 hours 01/22/21 12:42 Blood Culture - Preliminary Blood No Growth after 48 hours Assessment and Plan Plan: Assessment: #1. Acute right upper lobe pneumonia, COVID-19 has been ruled out, this possibly community-acquired pneumonia, chest x-ray showed posterior inferior right upper lung pneumonic masslike consolidation. Legionella urine antigen was negative, mycoplasma pneumonia IgG was mildly elevated at 1.45, and IgM was negative #2. Shortness of breath, fever, pleuritic chest discomfort, hemoptysis related to the above #3. Recent history of COVID-19 pneumonia in October 2020, patient received BAM and Decadron, did not require hospitalization #4. Moderately persistent bronchial asthma #5. Obesity with a BMI of 34.3 kg/m #6. Obstructive sleep apnea on CPAP therapy at a pressure of 18 cm of water #7. New onset atrial fibrillation, cardiology is following #8. Diabetes mellitus type 2 #9. 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 I reviewed the nurse practitioner's note and agree with the documented findings and plan of care. Lung sounds are positive for diminished breath sounds. The findings and the impression was discussed with the patient. I attest to the documentation by the nurse practitioner. Time with Patient: Less than 30
[2021-01-25] MEDS: SODIUM CHLORIDE 0.9% 1,000 ML IV SCH ×2 (13:07→21:22)
[2021-01-25] MEDS: MULTIVITAMINS, THERA 1 EACH TAB PO SCH (13:07)
[2021-01-25 16:54] LABS: Glucose,Whole Blood 178 mg/dL (75-99)
[2021-01-25] MEDS: RIVAROXABAN 20 MG TAB PO SCH (17:48)
--- NOTE | 2021-01-25 19:05 | P.PN ---
Subjective Progress Note Date: 01/25/21 This is a 65 year old male who was recently admitted with right upper lobe pneumonia and also found to have atrial fibrillation with fast ventricular rate and being closely monitrored. Patient is being maintained on xarelto along with breathing inhalational treatments and IV steroids. Patient is being followed by pulmonary and cardiology. Patient also continues with antibiotics. Follow up chest xray in the morning. Review of systems: Constitutional: no reports of fatigue, no reports of fever, or chills Cardiovascular: No reports of chest pain or palpitations Respiratory: reports intermittent shortness of breath, reports chronic cough GI: reports intermittent nausea, vomiting, or diarrhea : No reports of dysuria or retention Neurovascular: No reports of weakness or numbness All medications have been reviewed Objective - Vital Signs Vital signs: Vital Signs Temp 97.7 F 01/25/21 07:58 Pulse 55 L 01/25/21 07:58 Resp 16 01/25/21 07:58 BP 144/76 01/25/21 07:58 Pulse Ox 96 01/25/21 07:58 Intake & Output 01/24/21 01/25/21 01/25/21 18:59 06:59 18:59 Other: Voiding Method Toilet Toilet Toilet # Voids 1 # Bowel Movements 0 - Exam Gen: This is a 65 year old male sitting up in the chair with bilateral lower extremities elevated. Patient is well developed, well nourished, obese. HEENT: Head is atraumatic, normocephalic. Pupils equal, round. Sclerae is anicteric. NECK: Supple. No JVD. No lymphadenopathy. No thyromegaly. LUNGS: Diminished breath sounds bilaterally with scattered rhonchi noted and some mild expiratory wheeze noted as well. No intercostal retractions. HEART: S1, S2 muffled. Irregular ABDOMEN: Soft. obese. Bowel sounds are present. No masses. No tenderness. EXTREMITIES: No pedal edema. No calf tenderness. NEUROLOGICAL: Patient is awake, alert and oriented x3. Cranial nerves 2 through 12 are grossly intact. - Labs CBC & Chem 7: 01/23/21 06:19 01/24/21 05:21 Labs: Abnormal Lab Results - Last 24 Hours (Table) 01/24/21 01/24/21 01/24/21 Range/Units 11:51 16:49 20:37 POC Glucose (mg/dL) 210 H 230 H 241 H (75-99) mg/dL 01/25/21 Range/Units 07:31 POC Glucose (mg/dL) 158 H (75-99) mg/dL Microbiology - Last 24 Hours (Table) 01/23/21 19:39 Gram Stain - Final Sputum Sputum Culture - Final 01/22/21 12:37 Blood Culture - Preliminary Blood No Growth after 48 hours 01/22/21 12:42 Blood Culture - Preliminary Blood No Growth after 48 hours Assessment and Plan Assessment: Acute Right upper lobe pneumonia possibly gram-negative possibly Covid related, improving History of recent COVID-19 infection as well as treated with Bam Increased white blood count Diabetes mellitus type 2 possibly new onset Acute atrial fibrillation with fast ventricular rate History of PVCs History of asthma, chronic, intermittent Hypertension Possible sleep apnea history of degenerative joint disease history of hernia repair obesity with body mass index of 34 Full code Recommendations and discussion: Recommend to continue with current medications and current treatment. Cardiology and pulmonary following. Will continue with IV steroids and breathing inhalational treatments. Continue with antibiotics and will complete and oral course on discharge. Follow up chest xray ordered for the morning. Continued on Xarelto. Encouraged the patient to increase activity. Will continue to monitor closely. Possible discharge in 24 hours.
[2021-01-25 21:20] LABS: Glucose,Whole Blood 164 mg/dL (75-99)
[2021-01-25] MEDS: MONTELUKAST 10 MG TAB PO SCH (21:37)
[2021-01-25] MEDS: metFORMIN 500 MG TAB PO SCH (21:37)
[2021-01-26 07:30] LABS: Glucose,Whole Blood 154 mg/dL (75-99)
--- NOTE | 2021-01-26 07:33 | XR ---
EXAMINATION TYPE: XR chest 2V DATE OF EXAM: 01/26/2021 COMPARISON: 01/23/2021 HISTORY: Pneumonia TECHNIQUE: Frontal and lateral views of the chest are obtained. FINDINGS: Interval improvement in right upper lobe airspace disease. Cardiac silhouette is unchanged. IMPRESSION: Interval improvement in right upper lobe airspace disease.
[2021-01-26 07:52] VITALS: BP 178/71; PULSE 47; RESP 16; TEMP 99.4
[2021-01-26] MEDS: INSULIN ASPART (NovoLOG) 100 UNIT/ML VIAL SQ SCH ×2 (08:24→12:14)
[2021-01-26] MEDS: lamoTRIgine 100 MG TAB PO SCH (08:25)
[2021-01-26] MEDS: CHOLECALCIFEROL 25 MCG (1000 IU) TABLET PO SCH (08:25)
[2021-01-26] MEDS: PANTOPRAZOLE 40 MG TABLET PO SCH (08:25)
[2021-01-26] MEDS: MULTIVITAMINS, THERA 1 EACH TAB PO SCH (08:25)
[2021-01-26] MEDS: VENLAFAXINE HCL ER 75 MG CAP PO SCH (08:25)
[2021-01-26] MEDS: FLUTICASONE 50MCG/SPRAY NASAL 16GM EA NOSTRIL SCH (08:26)
[2021-01-26] MEDS: AZITHROMYCIN 500 MG TAB PO SCH (08:26)
[2021-01-26] MEDS: methylPREDNISolone SOD SUCCI 40 MG/ML 1 ML VIAL IV SCH (08:26)
[2021-01-26] MEDS: LOSARTAN-HCTZ 50-12.5 MG 1 EACH TAB PO SCH (08:26)
[2021-01-26] MEDS: SODIUM CHLORIDE 0.9% 1,000 ML IV SCH (08:38)
[2021-01-26] MEDS: SYMBICORT 160-4.5 MCG INHALER INHALATION SCH (09:17)
[2021-01-26 11:40] LABS: Glucose,Whole Blood 156 mg/dL (75-99)
--- NOTE | 2021-01-26 11:44 | P.PN ---
Subjective Progress Note Date: 01/26/21 Principal diagnosis: Shortness of breath, cough, hemoptysis, fever 65-year-old white male patient with past medical history of moderately persistent bronchial asthma, obstructive sleep apnea on CPAP therapy at a pressure of 18 cm of water and patient has been very compliant with this CPAP therapy, obesity, hypertension, and recent history of COVID 19 pneumonia in October 2020, for which the patient was treated with monoclonal antibodies in the form of BAM and a course of Decadron. Patient did have bilateral pulmonary infiltrates consistent with pneumonia that ultimately improved. Patient did not require hospitalization for COVID 19 pneumonia. On 01/22/2021 patient came into the emergency department complaining of chest discomfort, fevers, chills, and hemoptysis. He is having right-sided chest discomfort. His symptoms have been ongoing for about a week. He was seen at an outpatient urgent care clinic was tested for COVID 19 and was found to be negative. His chest x-ray showed new right upper lobe pneumonic consolidation. EKG showed new onset atrial fibrilla tion with a rate of 63 bpm. Patient did have leukocytosis on admission, with a white blood cell count of 19.2, hemoglobin of 13.2, electrolytes and renal profile were fairly unremarkable, troponins were less than 0.012, proBNP was 1120, urinalysis showed no evidence of infection, Legionella urine antigen was negative, mycoplasma pneumonia IgG was 1.45, and mycoplasma pneumonia IgM was negative. D-dimer was 0.81, CT chest was completed showing no evidence of pulmonary embolism, and evidence of large right upper lobe consolidation, related to community acquired pneumonia. Lower extremity Dopplers showed no evidence of deep vein thrombosis. Patient was started on a combination of azithromycin and Rocephin, he is on IV steroids. Cardiology is following and patient has been started on Zaroxolyn for anticoagulation. On today's exam patient is on room air, he is not better recliner, his had no fevers overnight, vital signs have been stable, he still have an right-sided chest discomfort, with deep inspiration. Today's labs show improvement of patient's white blood cell count which is down to 12.8. Blood and sputum cultures have been sent. Sputum culture showed few PMNs, few gram-positive cocci, and final cultures pending, blood cultures have shown no growth thus far at 24 hour isabel. On 01/25/2021 patient is seen in follow-up on medical surgical floor. He is awake and alert, in no acute distress, he did wear his CPAP last night at his home settings, he is currently on room air with a pulse ox of 96%, he is breathing comfortably, no recurrence of hemoptysis, no fever or chills, no complaints of chest discomfort. He remains on combination of azithromycin and Rocephin, has had no fevers overnight. Blood and sputum cultures have shown no growth, sputum Legionella culture is pending. However Legionella urine antigen was negative. No new chest x-rays, vital signs have been stable overnight, his last set of blood work showed improvement in his leukocytosis, his follow-up blood work is pending for today. On 01/26/2021 patient seen in follow-up on medical surgical floor, she sits up in chair, in no acute distress, he is on room air pulse ox of 96%, afebrile, vital signs have been stable, no worsening dyspnea, no complaints of cough or chest discomfort, today's chest x-ray shows improvement in the appearance of right upper lobe pneumonia, no acute events overnight, patient has been treated with a combination of azithromycin and Rocephin, Legionella sputum culture is still pending, but Legionella urine antigen was negative, sputum and blood cultures have been negative. Objective - Vital Signs Vital signs: Vital Signs Temp 99.4 F 01/26/21 07:51 Pulse 47 L 01/26/21 07:51 Resp 16 01/26/21 07:51 BP 178/71 01/26/21 07:51 Pulse Ox 95 01/26/21 09:17 Intake & Output 01/25/21 01/26/21 01/26/21 18:59 06:59 18:59 Intake Total 200 Balance 200 Intake: Oral 200 Other: Voiding Method Toilet Toilet # Voids 5 - Exam GENERAL EXAM: Alert, very pleasant, 65-year-old white male, on room air, with pulse ox of 95% comfortable in no apparent distress. HEAD: Normocephalic/atraumatic. EYES: Normal reaction of pupils, equal size. Conjunctiva pink, sclera white. NOSE: Clear with pink turbinates. THROAT: No erythema or exudates. NECK: No masses, no JVD, no thyroid enlargement, no adenopathy. CHEST: No chest wall deformity. Symmetrical expansion. LUNGS: Equal air entry with no crackles, wheeze, rhonchi or dullness. CVS: Regular rate and rhythm, normal S1 and S2, no gallops, no murmurs, no rubs ABDOMEN: Soft, nontender. No hepatosplenomegaly, normal bowel sounds, no guarding or rigidity. EXTREMITIES: No clubbing, no edema, no cyanosis, 2+ pulses and upper and lower extremities. MUSCULOSKELETAL: Muscle strength and tone normal. SPINE: No scoliosis or deformity SKIN: No rashes CENTRAL NERVOUS SYSTEM: Alert and oriented -3. No focal deficits, tone is normal in all 4 extremities. PSYCHIATRIC: Alert and oriented -3. Appropriate affect. Intact judgment and insight. - Labs CBC & Chem 7: 01/23/21 06:19 01/24/21 05:21 Labs: Abnormal Lab Results - Last 24 Hours (Table) 01/25/21 01/25/21 01/25/21 Range/Units 12:10 16:53 21:19 POC Glucose (mg/dL) 164 H 178 H 164 H (75-99) mg/dL 01/26/21 01/26/21 Range/Units 07:03 11:31 POC Glucose (mg/dL) 154 H 156 H (75-99) mg/dL Microbiology - Last 24 Hours (Table) 01/22/21 12:37 Blood Culture - Preliminary Blood No Growth after 72 hours 01/22/21 12:42 Blood Culture - Preliminary Blood No Growth after 72 hours 01/23/21 19:39 Gram Stain - Final Sputum Sputum Culture - Final Assessment and Plan Plan: Assessment: #1. Acute right upper lobe pneumonia, COVID-19 has been ruled out, this possibly community-acquired pneumonia, chest x-ray showed posterior inferior right upper lung pneumonic masslike consolidation. Legionella urine antigen was negative, mycoplasma pneumonia IgG was mildly elevated at 1.45, and IgM was negative #2. Shortness of breath, fever, pleuritic chest discomfort, hemoptysis related to the above #3. Recent history of COVID-19 pneumonia in October 2020, patient received BAM and Decadron, did not require hospitalization #4. Moderately persistent bronchial asthma #5. Obesity with a BMI of 34.3 kg/m #6. Obstructive sleep apnea on CPAP therapy at a pressure of 18 cm of water #7. New onset atrial fibrillation, cardiology is following #8. Diabetes mellitus type 2 #9. 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 Walton in the office in 7 days I performed a history & physical examination of the patient and discussed their management with my nurse practitioner, Ilsa Simons. I reviewed the nurse practitioner's note and agree with the documented findings and plan of care. Lung sounds are positive for diminished breath sounds. The findings and the impression was discussed with the patient. I attest to the documentation by the nurse practitioner. Time with Patient: Less than 30
--- NOTE | 2021-01-27 13:27 | P.DS ---
Providers Date of admission: 01/22/21 14:23 Expected date of discharge: 01/26/21 Attending physician: Dev Mayen Consults: 01/23/21 18:57 Consult Physician Routine Consulting Provider: Arti Walton Consult Reason/Comments: pneumonia Do you want consulting provider notified?: Yes Primary care physician: Stephan Escobar Hospital Course: Final diagnosis Acute Right upper lobe pneumonia possibly gram-negative possibly Covid related, improving History of recent COVID-19 infection as well as treated with Bam Increased white blood count Diabetes mellitus type 2 possibly new onset Acute atrial fibrillation with fast ventricular rate History of PVCs History of asthma, chronic, intermittent Hypertension Possible sleep apnea history of degenerative joint disease history of hernia repair obesity with body mass index of 34 Full code Discharge disposition Patient is being discharged in a stable condition with guarded prognosis to home. Patient will follow-up with Dr. Lemus upon discharge. Patient also follow-up outpatient with Dr. Walton pulmonary along with cardiology Dr. Gil. Patient will continue on a short course of oral antibiotics in the form of Levaquin 750 mg daily for the next 7 days along with a prednisone taper. Patient was also started on Xarelto and will continue. Total time taken is greater than 35 minutes. Hospital course This is a 65 year old male who was recently admitted with right upper lobe pneumonia and also found to have atrial fibrillation with fast ventricular rate and being closely monitrored. Patient is being maintained on xarelto along with breathing inhalational treatments and IV steroids. Patient is being followed by pulmonary and cardiology. Patient also continues with antibiotics. Follow up chest xray this morning shows interval improvement in the right upper lobe airspace disease. Patient will be continued on inhalers along with a prednisone taper and oral Levaquin 750 mg daily for the next 1 week. Patient was started on Xarelto for atrial fibrillation and will continue and will follow closely with Dr. Gil in the outpatient setting. Currently no reports of chest pain, worsening shortness of breath, or palpitations. Patient is afebrile. No reports of nausea or vomiting and patient is tolerating diet. Patient will be discharged to home today. On exam vital signs are stable. Cardio S1, S2 are muffled. Respiratory shows diminished breath sounds at the bases with no wheezing or rhonchi noted. Abdomen is soft and nontender. Nervous system shows no focal deficits. Please refer to medication reconciliation sheet for a list of medications. Patient Condition at Discharge: Stable Plan - Discharge Summary Discharge Rx Participant: Yes New Discharge Prescriptions: New Levofloxacin [Levaquin] 750 mg PO DAILY 7 Days #7 tab predniSONE 10 mg PO DIRECTED #30 tab Rivaroxaban [Xarelto] 20 mg PO DAILY #90 tab Multivitamins, Thera [Multivitamin (formulary)] 1 each PO DAILY@1200 30 Days #30 tab Albuterol Nebulized (Conc) [Ventolin Nebulized (Conc)] 2.5 mg INHALATION Q6H 30 Days #90 neb Continue Testosterone Cypionate [Depo-Testosterone] 200 mg IM Q14D Losartan/Hydrochlorothiazide [Losartan-Hctz 100-25 mg Tab] 1 tab PO DAILY Budesonide-Formot 160-4.5 Mcg [Symbicort 160-4.5 Mcg Inhaler] 2 puff INHALATION RT-BID Gamma E 1 cap PO DAILY lamoTRIgine [LaMICtal] 100 mg PO BID Albuterol Sulfate [Proair Hfa] 2 puff INHALATION RT-QID PRN PRN Reason: Shortness Of Breath predniSONE 5 mg PO DAILY #0 metFORMIN HCL [Glucophage] 500 mg PO HS Montelukast [Singulair] 10 mg PO HS Fluticasone Nasal Taylor [Flonase Nasal Taylor] 2 spr EA NOSTRIL RT-DAILY Cholecalciferol (Vitamin D3) [Vitamin D3 (5000 Iu)] 125 mcg PO DAILY Nad+ 1 cap PO DAILY Macuguard 1 cap PO DAILY Venlafaxine HCl [Effexor XR] 75 mg PO DAILY Alpha Lipoic Acid W/ Biotin 1 cap PO BID Discharge Medication List Budesonide-Formot 160-4.5 Mcg [Symbicort 160-4.5 Mcg Inhaler] 2 puff INHALATION RT-BID 11/04/20 [History] Fluticasone Nasal Taylor [Flonase Nasal Taylor] 2 spr EA NOSTRIL RT-DAILY 11/04/20 [History] Losartan/Hydrochlorothiazide [Losartan-Hctz 100-25 mg Tab] 1 tab PO DAILY 11/04/20 [History] Montelukast [Singulair] 10 mg PO HS 11/04/20 [History] Testosterone Cypionate [Depo-Testosterone] 200 mg IM Q14D 11/04/20 [History] metFORMIN HCL [Glucophage] 500 mg PO HS 11/04/20 [History] Albuterol Sulfate [Proair Hfa] 2 puff INHALATION RT-QID PRN 01/22/21 [History] Alpha Lipoic Acid W/ Biotin 1 cap PO BID 01/22/21 [History] Cholecalciferol (Vitamin D3) [Vitamin D3 (5000 Iu)] 125 mcg PO DAILY 01/22/21 [History] Gamma E 1 cap PO DAILY 01/22/21 [History] Macuguard 1 cap PO DAILY 01/22/21 [History] Nad+ 1 cap PO DAILY 01/22/21 [History] Venlafaxine HCl [Effexor XR] 75 mg PO DAILY 01/22/21 [History] lamoTRIgine [LaMICtal] 100 mg PO BID 01/22/21 [History] Rivaroxaban [Xarelto] 20 mg PO DAILY #90 tab 01/25/21 [Rx] Albuterol Nebulized (Conc) [Ventolin Nebulized (Conc)] 2.5 mg INHALATION Q6H 30 Days #90 neb 01/26/21 [Rx] Levofloxacin [Levaquin] 750 mg PO DAILY 7 Days #7 tab 01/26/21 [Rx] Multivitamins, Thera [Multivitamin (formulary)] 1 each PO DAILY@1200 30 Days #30 tab 01/26/21 [Rx] predniSONE 5 mg PO DAILY #0 01/26/21 [Rx] predniSONE 10 mg PO DIRECTED #30 tab 01/26/21 [Rx] Follow up Appointment(s)/Referral(s): Fred Gil DO [STAFF PHYSICIAN] - 1 Week Aroldo Lemus MD [Medical Doctor] - 1-2 days Arti Walton MD [STAFF PHYSICIAN] - 1 Week Activity/Diet/Wound Care/Special Instructions: Activity Limited until follow-up Follow-up with cardiology outpatient Follow-up with pulmonary outpatient Follow-up with primary care provider upon discharge Continue with prednisone taper and then resume normal prednisone dosing Continue antibiotics until finished Continue heart healthy diet Discharge Disposition: HOME SELF-CARE
== END 2021-01-26 14:07 | disposition home or self-care (01) | DRG 178 ==
LOC: EC 11:42 → 4SSUR 14:23
PROVIDERS: ADMIT Hospitalist; ATTEND Hospitalist
DX: J15.6 Pneumonia due to other Gram-negative bacteria (principal); I48.19 Other persistent atrial fibrillation; I42.9 Cardiomyopathy, unspecified; J45.901 Unspecified asthma with (acute) exacerbation; I47.2 Ventricular tachycardia; R07.89 Other chest pain; I49.5 Sick sinus syndrome; Z86.16 Personal history of COVID-19; Z20.822 Contact with and (suspected) exposure to COVID-19; G47.33 Obstructive sleep apnea (adult) (pediatric); E11.9 Type 2 diabetes mellitus without complications; E66.9 Obesity, unspecified; E78.5 Hyperlipidemia, unspecified; M19.90 Unspecified osteoarthritis, unspecified site; I10 Essential (primary) hypertension; I49.3 Ventricular premature depolarization; Y95 Nosocomial condition; Z68.34 Body mass index [BMI] 34.0-34.9, adult; Z87.891 Personal history of nicotine dependence; Z79.01 Long term (current) use of anticoagulants; Z79.51 Long term (current) use of inhaled steroids; Z79.52 Long term (current) use of systemic steroids; Z79.84 Long term (current) use of oral hypoglycemic drugs; Z87.01 Personal history of pneumonia (recurrent); Z79.899 Other long term (current) drug therapy; Z87.19 Personal history of other diseases of the digestive system
CPT/HCPCS: 36415; 71046; 71275; 80048; 80053; 81003; 82550; 83605; 83735; 83880; 84132; 84484; 85025; 85379; 85610; 85730; 86738; 87040; 87070; 87205; 87449; 93005; 93306; 93970; 94640; 94760; 96374; 99285

== ENCOUNTER → 2021-05-13 | Outpatient (CLI) | payer MEDICARE ==
[2021-05-13 11:40] LABS: HCT 40.3 % (39.0-53.0); HGB 12.8 gm/dL (13.0-17.5); MCH 32.6 pg (25.0-35.0); MCHC 31.9 g/dL (31.0-37.0); MCV 102.1 fL (80.0-100.0); Macrocytosis Slight; Mean Platelet Volume 7.2; Platelet Count 294 k/uL (150-450); RBC 3.95 m/uL (4.30-5.90); RDW 14.3 % (11.5-15.5); WBC 9.2 k/uL (3.8-10.6)
[2021-05-13 12:00] LABS: African American GFR (CKD) >90 (>60 ml/min/1.73 sqM); Anion Gap 8 mmol/L; Blood Urea Nitrogen 21 mg/dL (9-20); Carbon Dioxide 28 mmol/L (22-30); Chloride 106 mmol/L (98-107); Non-African American GFR(CKD) 85 (>60 ml/min/1.73 sqM); Potassium 4.3 mmol/L (3.5-5.1); Sodium 142 mmol/L (137-145)
== END | disposition home or self-care (01) ==
LOC: LABPAT 10:47
PROVIDERS: ATTEND Internal Medicine
DX: Z01.812 Encounter for preprocedural laboratory examination (principal); R06.02 Shortness of breath
CPT/HCPCS: 36415; 80051; 82565; 84520; 85027

== ENCOUNTER 2021-05-24 10:52 | Day surgery (SDC) | payer MEDICARE ==
[2021-05-23 10:04] VITALS: BMI 50.8
[~2021-05-24 10:52] MED LIST: ALPRAZolam 0.25 MG TAB PO PRN; ALPRAZolam 0.5 MG TAB PO PRN; ASPIRIN 325 MG TAB PO STA; ATORVASTATIN 80 MG TAB PO STA; HEPARIN SODIUM,PORCINE 10,000 UNIT in SODIUM CHLORIDE 0.9% 1,000 ML IRRIGATION PRN; HEPARIN SODIUM,PORCINE 2,500 UNIT in SODIUM CHLORIDE 0.9% 250 ML IRRIGATION PRN; NITROGLYCERIN SL TABS 0.4 MG TAB SUBLINGUAL PRN; SODIUM CHLORIDE 0.9% 1,000 ML in EMPTY BAG 1 BAG IV SCH
[2021-05-24] MEDS ORDERED: SODIUM CHLORIDE 0.9% 1,000 ML IV ONE (11:12)
[2021-05-24] MEDS ORDERED: LIDOCAINE 1% INJ 10MG/ML (20 ML MDV) ONE (11:21)
[2021-05-24] MEDS ORDERED: VERAPAMIL 2.5 MG/ML 2 ML AMP ONE (11:21)
[2021-05-24 11:38] LABS: Glucose,Whole Blood 120 mg/dL (75-99)
[2021-05-24] MEDS ORDERED: fentaNYL (PF) 50 MCG/ML 2 ML AMP ONE (11:45)
[2021-05-24 11:48] VITALS: RESP 16; TEMP 98.1
[2021-05-24] MEDS ORDERED: LIDOCAINE 1% INJ 10MG/ML (20 ML MDV) SQ ONE (11:54)
[2021-05-24] MEDS ORDERED: MIDAZOLAM 2 MG/2 ML VIAL IV ONE (11:55)
[2021-05-24] MEDS ORDERED: fentaNYL (PF) 50 MCG/ML 2 ML AMP IV ONE (11:55)
[2021-05-24] MEDS ORDERED: HEPARIN SODIUM 1,000 UN/ML (10ML VL) ONE (11:57)
[2021-05-24] MEDS ORDERED: VERAPAMIL SYRINGE (5 MG/10 ML) INTRAARTER ONE (11:57)
[2021-05-24] MEDS ORDERED: IOPAMIDOL-370 125ML BTL INJ ONE (12:05)
[2021-05-24] MEDS ORDERED: ALBUTEROL HFA INHALER INHALATION PRN (13:09)
[2021-05-24] MEDS ORDERED: RX INFO: IV CONTRAST WAS GIVEN 1 EACH MISC MISCELLANE PRN (13:12)
[2021-05-24] MEDS ORDERED: SODIUM CHLORIDE 0.9% 1,000 ML IV SCH (13:15)
[2021-05-24] MEDS ORDERED: ALBUTEROL NEBULIZED 2.5 MG/3 ML INHALATION SCH (14:00)
--- NOTE | 2021-05-24 15:27 | P.CARDCATH ---
Description of Procedure: PROCEDURES PERFORMED: Left heart catheterization, bilateral coronary angiography INDICATION: Shortness of breath concerning for angina HISTORY: Patient is a pleasant 66 year old male who has been having some PAZ and has been having persistent Afib. Initially he had mildly reduced EF however had improvement in EF. His symptoms of PAZ had worsened and therefore nuclear stress test was performed which showed inducible inferior ischemia and therefore heart catheterization was recommended. CONSENT:I have discussed the risks, benefits and alternative therapies for the above-mentioned procedure and for both sedation/analgesia as well as necessary blood product administration, if indicated, as they pertain to this patient. Th e patient has indicated understanding and acceptance of the risks and procedures discussed. PROCEDURE: After the risks, benefits and alternatives of the above mentioned procedure explained in detail with the patient, informed consent was obtained. Patient was taken to the catheterization lab and prepped and draped in usual fashion. 1% lidocaine was used to anesthetize the right radial artery. A 6- Romanian sheath was placed in the right radial artery using modified Seldinger technique. Left coronary angiography was performed with a 5-Romanian JL 3.5 catheter and right coronary angiography was performed with a 5-Romanian JR5 catheter in various views. A 5-Romanian FR5 catheter was inserted into the left ventricle and pressure measurements were obtained. The right radial sheath was removed and a TR band was placed with hemostasis achieved. The patient tolerated the procedure well. Patient was transported back to the post catheterization holding area in stable condition. Conscious Sedation: Patient was monitored under the direct supervision of vision of myself for conscious sedation using Versed and fentanyl for a total duration of 13 minutes HEMODYNAMICS: Aorta: 143/78 LV: 141/10, LVEDP 22 SELECTIVE CORONARY ARTERIOGRAPHY: LEFT MAIN: The left main is a large caliber vessel which bifurcates into the LAD and circumflex. There is no significant stenosis. LEFT ANTERIOR DESCENDING CORONARY ARTERY: LAD is a large caliber vessel which wraps around to the apex. There is no significant stenosis. LEFT CIRCUMFLEX CORONARY ARTERY: Left circumflex is a moderate caliber vessel without significant stenosis. RIGHT CORONARY ARTERY: The right coronary artery is a large caliber vessel which gives off a PDA and PLV branch and is the dominant vessel. There is no significant stenosis. FINAL IMPRESSION: 1. Normal coronary arteries as described above. 2. Elevated left sided filling pressures PLAN: 1. Aggressive risk factor modification per most recent ACC/AHA guidelines. 2. Change Lorsartan/HCTZ to Losartan separate and change HCTZ to Lasix given elevated left sided filling pressures. 3. Follow-up in the office in 1-2 weeks.
[2021-05-24 16:54] VITALS: BP 147/66; PULSE 64
[2021-05-24] MEDS ORDERED: MONTELUKAST 10 MG TAB PO SCH (21:00)
[2021-05-24] MEDS ORDERED: TOPIRAMATE 50 MG PO SCH (21:00)
[2021-05-25] MEDS ORDERED: RIVAROXABAN 20 MG TAB PO SCH (09:00)
== END 2021-05-24 15:47 | disposition home or self-care (01) ==
LOC: CATHCVL 10:52
PROVIDERS: ATTEND Internal Medicine
DX: R06.02 Shortness of breath (principal); R94.39 Abnormal result of other cardiovascular function study; I42.9 Cardiomyopathy, unspecified; I11.0 Hypertensive heart disease with heart failure; I50.32 Chronic diastolic (congestive) heart failure; I48.19 Other persistent atrial fibrillation; I35.0 Nonrheumatic aortic (valve) stenosis; J44.9 Chronic obstructive pulmonary disease, unspecified; E11.9 Type 2 diabetes mellitus without complications; G47.33 Obstructive sleep apnea (adult) (pediatric); E66.09 Other obesity due to excess calories; Z68.43 Body mass index [BMI] 50.0-59.9, adult; Z87.891 Personal history of nicotine dependence; Z87.01 Personal history of pneumonia (recurrent); Z79.01 Long term (current) use of anticoagulants; Z79.899 Other long term (current) drug therapy; Z79.84 Long term (current) use of oral hypoglycemic drugs; Z20.822 Contact with and (suspected) exposure to COVID-19
CPT/HCPCS: 93458; 87635; C1894; J2250; J2001; J3010; J1644; Q9967

== ENCOUNTER → 2021-09-02 | Outpatient (CLI) | payer MEDICARE ==
[2021-09-02 18:16] LABS: HCT 40.2 % (39.6-50.0); MCHC 32.3 g/dL (32.0-37.0); Mean Platelet Volume 10.2 fL (9.5-12.2); Platelet Count 222 X 10*3/uL (140-440); RBC 4.06 X 10*6/uL (4.40-5.60); RDW 13.9 % (11.5-14.5); WBC 7.06 X 10*3/uL (4.50-10.00)
== END | disposition home or self-care (01) ==
LOC: LABWHC1 11:00
PROVIDERS: ATTEND Internal Medicine Endocrinology, Diabetes & Metabolism
DX: E29.1 Testicular hypofunction (principal)
CPT/HCPCS: 36415; 84403; 85027

== ENCOUNTER → 2021-12-07 | Outpatient (CLI) | payer MEDICARE ==
[2021-12-07 18:25] LABS: African American GFR (CKD) 109.1 (60.0-200.0); Anion Gap 7.4 mmol/L (10.00-18.00); Blood Urea Nitrogen 14.2 mg/dL (9.0-27.0); Carbon Dioxide 26.1 mmol/L (20.0-27.5); Non-African American GFR(CKD) 94.1 (60.0-200.0); Potassium 4.2 mmol/L (3.5-5.5)
[2021-12-07 18:28] LABS: HCT 42.3 % (39.6-50.0); HGB 13.3 g/dL (13.0-17.0); MCH 29.9 pg (27.0-32.0); MCHC 31.4 g/dL (32.0-37.0); MCV 95.1 fL (80.0-97.0); Mean Platelet Volume 10.3 fL (9.5-12.2); NRBC Per 100 WBC 0 /100 WBCS (0.0-0.0); Platelet Count 216 X 10*3/uL (140-440); RBC 4.45 X 10*6/uL (4.40-5.60); RDW 14.7 % (11.5-14.5); WBC 6.82 X 10*3/uL (4.50-10.00)
== END | disposition home or self-care (01) ==
LOC: LABPAT 10:33
PROVIDERS: ATTEND Internal Medicine
DX: Z01.812 Encounter for preprocedural laboratory examination (principal); I48.11 Longstanding persistent atrial fibrillation
CPT/HCPCS: 80051; 82565; 84520; 85027

== ENCOUNTER → 2022-01-30 | Outpatient (CLI) | payer MEDICARE ==
[2022-01-30 13:46] LABS: HCT 46.7 % (39.6-50.0); HGB 14.6 g/dL (13.0-17.0); MCH 29.4 pg (27.0-32.0); MCHC 31.3 g/dL (32.0-37.0); Mean Platelet Volume 10.1 fL (9.5-12.2); NRBC Per 100 WBC 0 /100 WBCS (0.0-0.0); Platelet Count 279 X 10*3/uL (140-440); RBC 4.97 X 10*6/uL (4.40-5.60); RDW 16.9 % (11.5-14.5); WBC 7.04 X 10*3/uL (4.50-10.00)
[2022-01-30 14:23] LABS: African American GFR (CKD) 106.2 (60.0-200.0); Blood Urea Nitrogen 11.8 mg/dL (9.0-27.0); Carbon Dioxide 24.4 mmol/L (20.0-27.5); Non-African American GFR(CKD) 91.6 (60.0-200.0); Potassium 4.3 mmol/L (3.5-5.5)
== END | disposition home or self-care (01) ==
LOC: LABPAT 08:30
PROVIDERS: ATTEND Internal Medicine Clinical Cardiac Electrophysiology
DX: Z01.812 Encounter for preprocedural laboratory examination (principal); I48.91 Unspecified atrial fibrillation
CPT/HCPCS: 80051; 82565; 84520; 85027

== ENCOUNTER 2022-02-09 10:03 | Day surgery (SDC) | payer MEDICARE ==
[2022-02-03 13:31] VITALS: BMI 51.4
[~2022-02-09 10:03] MED LIST changes: -ALPRAZolam 0.25 MG TAB PO PRN; -ALPRAZolam 0.5 MG TAB PO PRN; -ASPIRIN 325 MG TAB PO STA; -ATORVASTATIN 80 MG TAB PO STA; -HEPARIN SODIUM,PORCINE 10,000 UNIT in SODIUM CHLORIDE 0.9% 1,000 ML IRRIGATION PRN; -HEPARIN SODIUM,PORCINE 2,500 UNIT in SODIUM CHLORIDE 0.9% 250 ML IRRIGATION PRN; +LACTATED RINGERS 1,000 ML IV SCH; -NITROGLYCERIN SL TABS 0.4 MG TAB SUBLINGUAL PRN; +SODIUM CHLORIDE 0.9% 1,000 ML IV SCH; -SODIUM CHLORIDE 0.9% 1,000 ML in EMPTY BAG 1 BAG IV SCH
[2022-02-09] MEDS ORDERED: SODIUM CHLORIDE 0.9% 1,000 ML IV ONE (10:13)
[2022-02-09] MEDS ORDERED: HEPARIN SODIUM,PORCINE 10,000 UNIT/ML 1 ML VIAL ONE (12:58)
[2022-02-09] MEDS ORDERED: PROPOFOL 10 MG/ML 20 ML VIAL IV ONE (12:58)
[2022-02-09] MEDS ORDERED: fentaNYL (PF) 50 MCG/ML 2 ML AMP ONE (12:58)
[2022-02-09] MEDS ORDERED: MIDAZOLAM 2 MG/2 ML VIAL ONE (12:58)
[2022-02-09] MEDS ORDERED: ePHEDrine 50 MG/ML 1 ML VIAL ONE (12:58)
[2022-02-09] MEDS ORDERED: SUCCINYLCHOLINE CHLORIDE VIAL 200 MG/10 ML VIAL IV ONE (12:58)
[2022-02-09] MEDS ORDERED: LIDOCAINE 1% INJ 10MG/ML (30 ML VIAL-PF) SQ ONE (13:45)
[2022-02-09] MEDS ORDERED: HEPARIN SOD,PORK IN 0.45% NACL 25,000 UNIT in 0.45% NACL 1 250ML.BAG IV ONE (13:47)
[2022-02-09] MEDS ORDERED: IOPAMIDOL-370 100ML BTL INJ ONE (15:48)
--- NOTE | 2022-02-09 16:29 | P.HPCAR ---
History of Present Illness This is Dr. Riddle dictating an H/P on this patient The patient was interviewed and examined IMPRESSION / ASSESSMENT: Persistent atrial fibrillation Cardiomyopathy Increased BMI Biatrial enlargement PLAN: A. fib ablation HPI Patient complains of shortness of breath with exertion He is a history of atrial fibrillation as well as past history of cardio myopathy Mild aortic stenosis Severely dilated right left atrium Increased BMI ROS: No fever chills or rigors, no cough, phlegm or expectoration, no nausea, vomiting or diarrhea, no hematuria, dysuria, no musculoskeletal complaints, no strokes or seizures, no skin lesions. EXAMINATION: Ulcer and 1560s afebrile Blood pressure 190/84 mmHg Breath sounds are reduced bilaterally but there are no rhonchi no crackles Heart sounds no murmurs No lower extremity edema REVIEW OF LABS, ECG & MEDICAL DATA Coronavirus negative Physical Exam Vitals: Vital Signs Temp Pulse Resp BP Pulse Ox 02/09/22 10:25 98.9 F 53 L 16 119/84 98 Intake and Output 02/09/22 02/09/22 02/09/22 06:59 14:59 22:59 Intake Total 896 Balance 896 Intake: IV 896 Other: Weight 175.7 kg Past Medical History Past Medical History: Asthma, Hypertension, Osteoarthritis (OA) Additional Past Medical History / Comment(s): SEE DR RIDDLE'S HISTORY AND PHYSICAL FOR CARDIAC HISTORY , HEART MURMUR, History of Any Multi-Drug Resistant Organisms: None Reported Past Surgical History: Hernia Repair, Orthopedic Surgery Additional Past Surgical History / Comment(s): R knee, sinus x 2, LT CATARACT SX, COLONOSCOPY Past Anesthesia/Blood Transfusion Reactions: No Reported Reaction Smoking Status: Former smoker - Past Family History Mother Family Medical History: No Reported History Brother(s) Family Medical History: Cancer Physical Examination Vital Signs Temp Pulse Resp BP Pulse Ox 02/09/22 10:25 98.9 F 53 L 16 119/84 98 Intake and Output 02/09/22 02/09/22 02/09/22 06:59 14:59 22:59 Intake Total 896 Balance 896 Intake: IV 896 Other: Weight 175.7 kg Results Current Medications Generic Name Dose Route Start Last Admin Trade Name Freq PRN Reason Stop Dose Admin Lactated Ringer's 1,000 mls @ 20 mls/hr 02/09/22 06:41 Lactated Ringers IV 03/11/22 06:42 .Q24H KYLE Sodium Chloride 1,000 mls @ 20 mls/hr 02/09/22 06:41 Saline 0.9% IV 03/11/22 06:42 .Q24H KYLE Intake and Output 02/09/22 02/09/22 02/09/22 06:59 14:59 22:59 Intake Total 896 Balance 896 Intake: IV 896 Other: Weight 175.7 kg Patient Weight 02/10/22 06:59 Weight 175.7 kg
--- NOTE | 2022-02-09 16:36 | P.EPPROC ---
- EP Procedure Note Electrophysiology Procedure Note: PROCEDURE A. fib ablation/PVI DIAGNOSIS Persistent Atrial fibrillation, symptomatic, refractory to therapy History of cardio myopathy, increased BMI greater than 50 RESULT No left atrial appendage mass seen on intracardiac echo, severe biatrial enlargement Successful A. fib ablation/pulmonary vein isolation of all veins using cryo- ablation Complete entrance block in all 4 veins confirmed No evidence for phrenic nerve injury Esophageal deflection YES right-sided esophagus Electrical cardioversion with a synchronized shock across the chest YES PROCEDURE DETAILS Patient was brought to the EP lab in a fasting state after obtaining written informed consent. Procedure performed under general anesthesia Esophagus was intubated. Esophageal temperature monitoring with circa catheter. Esophageal deflection with an endoscope to avoid hypothermia of the esophagus. After initial muscle relaxant use, muscle relaxants were not given thereafter in order to assess phrenic nerve during procedure. Patient prepped and draped as per protocol Cryo ablation-set up with standard preparation of the cryoablation tools done. Femoral Venous access obtained on the right and left groins and sheaths placed Diagnostic catheters for the high right atrium, phrenic nerve stimulation and pacing, His bundle, coronary sinus placed Intracardiac echo catheter placed. Long sheath placed in the right atrium Left and right transseptal catheterization performed under intracardiac echo guidance. Intravenous heparin with aCT above 300 Later, catheter positioning and balloon positioning in the left atrium and pulmonary veins, under intracardiac echo guidance Diagnostic EP study with coronary sinus pacing and recording Baseline measurements: QRS 90 ms, HV 58 Prilosec Transseptal catheterization performed RA pressure 18/16/15 LA pressure 25/15/16 Transseptal catheterization performed with standard sheath. The right atrium was severely enlarged and transseptal sheath dilator and needle would not even touch the interatrial septum After multiple attempts of PRK 1 needle was used and even with this, severe clockwise rotation resulted in contact with the interatrial septum/fossa ovalis Following that successful transseptal catheterization was performed The cryoablation sheath was then placed with an over the wire exchange without any acute complications. The cryoablation balloon was placed in the office of each pulmonary vein and all 4 pulmonary veins were isolated. IV dye was injected to confirm occlusion. Goal: achieve complete occlusion of the pulmonary vein, achieve -30 degrees C at 30 seconds and achieve -40 degrees C at 60 seconds and a time to effect of less than 60 seconds. If not, the balloon was repositioned to obtain this result After completion of Cryoblation with durations from 180-240 seconds, entrance block was confirmed with the Attain circular catheter in a roving fashion around the antrum of the pulmonary veins Phrenic nerve pacing was performed from the SVC, right innominate vein area and diaphragm voltage was monitored. Diaphragmatic contractions were also monitored manually for strength of contraction. Two cryo lesions each applied to the left superior, left inferior, right inferior and right superior veins The right middle vein was also independently isolated At the end of the procedure the Achieve catheter was once again used to check for entrance block Phrenic nerve stimulation was performed to confirm diaphragmatic stimulation the end of the procedure Cine fluoroscopy was performed at the very end of the procedure to confirm movement of both diaphragms with inspiration and expiration At the end of the procedure the patient was extubated Venous sheaths were removed and hemostasis assured with a closure device The patient remained in atrial fibrillation and 200 J biphasic shock in the AP configuration successfully converted into sinus PROCEDURES PERFORMED Diagnostic EP study CS pacing and recording Left and right transseptal catheterization Catheter the mapping of the tachycardia Intracardiac echocardiography Pulmonary vein isolation with transseptal and comprehensive EPS, 04500 Electrical cardioversion with a synchronized shock across the chest 72674 Extended procedure duration on account of increased BMI, deep femoral veins, very large right atrium, difficult transseptal access Complex right pulmonary venous anatomy
--- NOTE | 2022-02-09 16:38 | P.PRLE ---
RE: Cj Clark Dear Dr. Ogden Patient underwent successful pulmonary vein isolation for management of atrial fibrillation He has a severely dilated right and left atria but his LV function has improved, based on intracardiac echo images He will continue anticoagulation and follow with you and Dr. Gil as before Thank you for entrusting me with the care of the patient Warm regards Sincerely Elliot Riddle
[2022-02-09] MEDS ORDERED: ACETAMINOPHEN TAB 325 MG TAB PO PRN (16:39)
[2022-02-09] MEDS ORDERED: ACETAMINOPHEN IV (For NPO) 1,000 MG/100 ML VIAL IVPB ONE (16:59)
[2022-02-09] MEDS ORDERED: ALBUTEROL NEB (CONC) 2.5 MG/0.5 ML INHALATION SCH (17:00)
[2022-02-09] MEDS ORDERED: LACTATED RINGERS 1,000 ML IV ONE (17:05)
[2022-02-09] MEDS: hydrALAZINE HCL 50 MG TAB PO SCH ×2 (17:43→20:28)
[2022-02-09] MEDS: ALBUTEROL NEBULIZED 2.5 MG/3 ML INHALATION SCH (20:02)
[2022-02-09] MEDS: FLECAINIDE 50 MG TAB PO SCH (20:28)
[2022-02-09] MEDS ORDERED: RIVAROXABAN 20 MG TAB PO SCH (21:00)
[2022-02-09] MEDS ORDERED: MONTELUKAST 10 MG TAB PO SCH (21:00)
[2022-02-10] MEDS: ALBUTEROL NEBULIZED 2.5 MG/3 ML INHALATION SCH ×3 (03:09→12:15)
[2022-02-10 03:45] VITALS: RESP 18
[2022-02-10] MEDS: hydrALAZINE HCL 50 MG TAB PO SCH (07:52)
[2022-02-10] MEDS: FLECAINIDE 50 MG TAB PO SCH (07:52)
[2022-02-10 08:23] VITALS: BP 160/82; PULSE 95; TEMP 97.2
[2022-02-10] MEDS ORDERED: SYMBICORT 160-4.5 MCG INHALER INHALATION SCH (09:00)
[2022-02-10] MEDS ORDERED: FUROSEMIDE 40 MG TAB PO SCH (09:00)
[2022-02-10] MEDS ORDERED: LOSARTAN 50 MG TAB PO SCH (09:00)
[2022-02-11] MEDS ORDERED: LOSARTAN 50 MG TAB PO SCH (09:00)
--- NOTE | 2022-02-13 07:59 | P.DS ---
Providers Attending physician: Elliot Riddle Primary care physician: Debra Ogden MD Hospital Course: Patient seen on Sunday around noontime prior to discharge Patient is sitting comfortably in bed Groins of healed well No hematoma No chest discomfort no dizziness no lightheadedness Mild sore throat On examination breath sounds are reduced bilaterally with no rhonchi line normal heart sounds are regular no murmurs, no rub On examination pulse rate is in the 80s Blood pressure 160/82 mmHg Impression Persistent atrial fibrillation status post PVI Underlying first degree AV block Hypertension Significantly enlarged left and right atria Plan Continue anticoagulation Increase losartan to 150 mg daily for hypertension management Follow-up with Dr. Gil within one week Patient Condition at Discharge: Stable Plan - Discharge Summary Discharge Rx Participant: No New Discharge Prescriptions: No Action Albuterol Sulfate [Proair Hfa] 2 puff INHALATION RT-QID PRN PRN Reason: Shortness Of Breath Furosemide [Lasix] 40 mg PO DAILY 90 Days #90 tablet Losartan [Cozaar] 100 mg PO DAILY Montelukast [Singulair] 10 mg PO HS Albuterol Nebulized (Conc) [Ventolin Nebulized (Conc)] 2.5 mg INHALATION Q6H 30 Days #90 neb Flecainide [Tambocor] 100 mg PO Q12HR Rivaroxaban [Xarelto] 20 mg PO HS Budesonide-Formot 160-4.5 Mcg [Symbicort 160-4.5 Mcg Inhaler] 2 puff INHA LATION DAILY Discharge Medication List Montelukast [Singulair] 10 mg PO HS 11/04/20 [History] Albuterol Sulfate [Proair Hfa] 2 puff INHALATION RT-QID PRN 01/22/21 [History] Albuterol Nebulized (Conc) [Ventolin Nebulized (Conc)] 2.5 mg INHALATION Q6H 30 Days #90 neb 01/26/21 [Rx] Furosemide [Lasix] 40 mg PO DAILY 90 Days #90 tablet 05/24/21 [Rx] Flecainide [Tambocor] 100 mg PO Q12HR 12/19/21 [History] Losartan [Cozaar] 100 mg PO DAILY 12/19/21 [History] Rivaroxaban [Xarelto] 20 mg PO HS 12/19/21 [History] Budesonide-Formot 160-4.5 Mcg [Symbicort 160-4.5 Mcg Inhaler] 2 puff INHALATION DAILY 02/03/22 [History] Follow up Appointment(s)/Referral(s): Fred Gil DO [STAFF PHYSICIAN] - 02/27/22 1:15 pm Patient Instructions/Handouts: *Surgery [facility] - After Heart Catheterization - Offset Press Operator Instructions, A-fib (Atrial Fibrillation) (GEN), Cardioversion (GEN), Angio-Seal (GEN), Electrophysiology Study (GEN) Activity/Diet/Wound Care/Special Instructions: avoid excessive stairs, walk frequently no lifting more than 20 lbs until follow up with dr gil. Increase losartan from 100mg to 150mg daily until follow up wth dr gil. Discharge Disposition: HOME SELF-CARE
== END 2022-02-10 14:45 | disposition home or self-care (01) ==
LOC: CATHEP 10:03 → 6NMEDSUR 16:10 → CATHEP 02-10 14:45
PROVIDERS: ATTEND Internal Medicine Clinical Cardiac Electrophysiology
DX: I48.19 Other persistent atrial fibrillation (principal); I44.0 Atrioventricular block, first degree; I42.9 Cardiomyopathy, unspecified; I35.0 Nonrheumatic aortic (valve) stenosis; J45.909 Unspecified asthma, uncomplicated; I10 Essential (primary) hypertension; M19.90 Unspecified osteoarthritis, unspecified site; R01.1 Cardiac murmur, unspecified; Z20.822 Contact with and (suspected) exposure to COVID-19; Z98.890 Other specified postprocedural states; Z98.42 Cataract extraction status, left eye; Z87.891 Personal history of nicotine dependence; Z80.9 Family history of malignant neoplasm, unspecified; Z79.01 Long term (current) use of anticoagulants; Z79.51 Long term (current) use of inhaled steroids; Z79.899 Other long term (current) drug therapy
CPT/HCPCS: 94640 ×2; 94760; 92960; 93656; 87635; C1894 ×2; C1769 ×5; C1760; C1730 ×2; C1759; C1893; C1733; C1766; J2250; J0330; J1644 ×2; J2001; J3010; J0131; J2704; Q9967

== ENCOUNTER 2022-06-27 07:36 | Day surgery (SDC) | payer MEDICARE ==
[2022-06-26 13:54] VITALS: BMI 52.7
[2022-06-27] MEDS ORDERED: SODIUM CHLORIDE 0.9% 500 ML 500 ML IV ONE (07:39)
[2022-06-27 08:28] LABS: African American GFR (CKD) >90 (>60 ml/min/1.73 sqM); Anion Gap 11 mmol/L; Blood Urea Nitrogen 19 mg/dL (9-20); Calcium 8.7 mg/dL (8.4-10.2); Carbon Dioxide 25 mmol/L (22-30); Chloride 105 mmol/L (98-107); Glucose 165 mg/dL (74-99); Non-African American GFR(CKD) >90 (>60 ml/min/1.73 sqM); Sodium 141 mmol/L (137-145)
[2022-06-27] MEDS ORDERED: PROPOFOL 10 MG/ML 20 ML VIAL IV ONE (09:00)
[2022-06-27 09:51] VITALS: RESP 16
--- NOTE | 2022-06-27 10:26 | P.PCN ---
Description of Procedure: Procedure performed: Attempted cardioversion Moderate conscious sedation: Moderate conscious sedation was supplied by anesthesia, see separate report Complications: none Indications: Afib PROCEDURE: After the risks, benefits and alternatives of the above mentioned procedure was explained in detail with the patient, informed consent was obtained. Patient was brought to the lab in a fasting state. Patient was given sedation by anesthesia. Attempted synchronized cardioversion was performed with 200J x 4 which was unsuccessful and therefore procedure was ended. Patient tolerated the procedure well. Patient was transferred to the post procedure area in stable and satisfactory condition.
[2022-06-27 11:10] VITALS: BP 144/70; PULSE 57
== END 2022-06-27 11:08 | disposition home or self-care (01) ==
LOC: CATHCVL 07:36
PROVIDERS: ATTEND Internal Medicine
DX: I48.11 Longstanding persistent atrial fibrillation (principal); I11.0 Hypertensive heart disease with heart failure; I50.33 Acute on chronic diastolic (congestive) heart failure; G47.33 Obstructive sleep apnea (adult) (pediatric); E66.9 Obesity, unspecified; I35.0 Nonrheumatic aortic (valve) stenosis; R00.1 Bradycardia, unspecified; Z79.899 Other long term (current) drug therapy; Z79.01 Long term (current) use of anticoagulants
CPT/HCPCS: 92960; 80048; J2704

== ENCOUNTER 2022-11-14 14:40 | Inpatient (IN) | payer MEDICARE ==
[2022-11-14] MEDS ORDERED: ACETAMINOPHEN TAB 500 MG TAB PO STA (16:12)
[2022-11-14] MEDS ORDERED: IBUPROFEN 600 MG TAB PO STA (16:13)
--- NOTE | 2022-11-14 16:16 | ED ---
General Adult HPI - General Chief complaint: Shortness of Breath Stated complaint: Coughing up blood Time Seen by Provider: 11/14/22 16:02 Source: patient, RN notes reviewed Mode of arrival: ambulatory Limitations: no limitations - History of Present Illness Initial comments: Patient is a pleasant 67-year-old male presenting to the emergency Department with cough and shortness of breath. Onset of symptoms was a few days ago. Patient has some mild right lower chest discomfort today however that is near resolved. That was worse with cough and deep breaths earlier. Patient did have an episode of hemoptysis earlier. Patient also had chills last night and this morning and has been sweating more. Cough otherwise is been nonproductive. No leg pain or leg swelling. Patient is on anticoagulants secondary to history of A. fib. - Related Data Home Medications Medication Instructions Recorded Confirmed Montelukast [Singulair] 10 mg PO HS 11/04/20 11/14/22 Albuterol Sulfate [Proair Hfa] 2 puff INHALATION RT-QID PRN 01/22/21 11/14/22 Rivaroxaban [Xarelto] 20 mg PO W/SUPPER 12/19/21 11/14/22 Budesonide-Formot 160-4.5 Mcg 2 puff INHALATION RT-BID 02/03/22 11/14/22 [Symbicort 160-4.5 Mcg Inhaler] Fluticasone Nasal [place] [Flonase 2 spray EA NOSTRIL DAILY 06/26/22 11/14/22 Nasal [place]] Venlafaxine HCl [Effexor XR] 150 mg PO DAILY 06/26/22 11/14/22 lamoTRIgine [LaMICtal] 100 mg PO BID 06/26/22 11/14/22 Furosemide [Lasix] 80 mg PO DAILY 11/14/22 11/14/22 Losartan Potassium [Cozaar] 100 mg PO DAILY 11/14/22 11/14/22 Testosterone Cypionate 200 mg IM Q14D 11/14/22 11/14/22 [Depo-Testosterone] Allergies Allergy/AdvReac Type Severity Reaction Status Date / Time No Known Allergies Allergy Verified 11/14/22 16:55 Review of Systems ROS Statement: Those systems with pertinent positive or pertinent negative responses have been documented in the HPI. ROS Other: All systems not noted in ROS Statement are negative. Constitutional: Reports: as per HPI, chills Eyes: Denies: eye pain ENT: Denies: ear pain Respiratory: Reports: as per HPI, cough, dyspnea, hemoptysis (1 episode) Cardiovascular: Reports: as per HPI Endocrine: Denies: fatigue Gastrointestinal: Denies: abdominal pain Genitourinary: Denies: dysuria Musculoskeletal: Denies: back pain Skin: Denies: rash Neurological: Denies: weakness Past Medical History Past Medical History: Atrial Fibrillation, Asthma, Hypertension, Osteoarthritis (OA), Sleep Apnea/CPAP/BIPAP Additional Past Medical History / Comment(s): HAS A C PAP MACHINE History of Any Multi-Drug Resistant Organisms: None Reported Past Surgical History: Cardiac Ablation, Hernia Repair, Orthopedic Surgery Additional Past Surgical History / Comment(s): ARTHROSCOPIC R knee, sinus x 2, LT CATARACT SX, COLONOSCOPY, Past Anesthesia/Blood Transfusion Reactions: No Reported Reaction Past Psychological History: No Psychological Hx Reported Smoking Status: Former smoker Past Alcohol Use History: None Reported Past Drug Use History: None Reported - Past Family History Mother Family Medical History: No Reported History Brother(s) Family Medical History: Cancer General Exam Limitations: no limitations General appearance: alert, in no apparent distress Head exam: Present: normocephalic Eye exam: Present: normal appearance Neck exam: Present: normal inspection Respiratory exam: Present: normal lung sounds bilaterally. Absent: chest wall tenderness Cardiovascular Exam: Present: irregular rhythm, normal heart sounds GI/Abdominal exam: Present: soft. Absent: tenderness Extremities exam: Present: normal inspection. Absent: pedal edema, calf tenderness Neurological exam: Present: alert Psychiatric exam: Present: normal affect, normal mood Skin exam: Present: normal color Course Vital Signs 11/14/22 11/14/22 11/14/22 15:21 15:52 16:00 Temperature 98.2 F 99.9 F H Pulse Rate 77 Respiratory 28 H 28 H Rate Blood Pressure 161/69 O2 Sat by Pulse 97 Oximetry 11/14/22 18:08 Temperature Pulse Rate 81 Respiratory 18 Rate Blood Pressure 104/68 O2 Sat by Pulse 93 L Oximetry EKG Findings - EKG Results: EKG: interpreted by ERMD (Septal Q waves. Nonspecific ST change. 3 through V5, similar to previous EKG. Normal axis) EKG shows: atrial fibrillation Medical Decision Making - Medical Decision Making Was pt. sent in by a medical professional or institution (SHIREEN Stiles, [employer] CUTTER, urgent care, hospital, or penitentiary...) When possible be specific @ -No Did you speak to anyone other than the patient for history (EMS, parent, family, police, friend...)? What history was obtained from this source @ -No Did you review nursing and triage notes (agree or disagree)? Why? @ -I reviewed and agree with nursing and triage notes Were old charts reviewed (outside hosp., previous admission, EMS record, old EKG, old radiological studies, urgent care reports/EKG's, penitentiary records)? Report findings @ -No old charts were reviewed Differential Diagnosis (chest pain, altered mental status, abdominal pain women, abdominal pain men, vaginal bleeding, weakness, fever, dyspnea, syncope, headache, dizziness, GI bleed, back pain, seizure, CVA, palpatations, mental health)? @ -Differential Fever: Pneumonia, viral URI, endocarditis, myocarditis, pericarditis, otitis, sinusitis, peritonsillar Abscess, retropharyngeal Abscess, epiglottitis, peritonitis, appendicitis, Aaliyah cystitis, diverticulitis, hepatitis, colitis, UTI, PID, TOA, pyelonephritis, prostatitis, epididymitis, meningitis, encephalitis, pulmonary embolism, CVA, thyroid storm, pancreatitis, adrenal crisis, cavernous sinus thrombosis, this is not meant to be an all-inclusive list. EKG interpreted by me (3pts min.). @ -As above X-rays interpreted by me (1pt min.). @ -Chest x-ray shows right middle and lower lobe infiltrate CT interpreted by me (1pt min.). @ -None done U/S interpreted by me (1pt. min.). @ -None done What testing was considered but not performed or refused? (CT, X-rays, U/S, labs)? Why? @ -None What meds were considered but not given or refused? Why? @ -None Did you discuss the management of the patient with other professionals (professionals i.e. SHIREEN Stiles, [employer] CUTTER, lab, RT, psych nurse, clinical social worker, mine exploration engineer, teacher, founder and chief technical officer, skilled nursing case manager)? Give summary @ -Case was discussed with practitioner Edita, who will admit covering hospital call. Was smoking cessation discussed for >3mins.? @ -No Was critical care preformed (if so, how long)? @ -No Were there social determinants of health that impacted care today? How? (Homelessness, low income, unemployed, alcoholism, drug addiction, transportation, low edu. Level, literacy, decrease access to med. care, [place] [facility], rehab)? @ -No Was there de-escalation of care discussed even if they declined (Discuss DNR or withdrawal of care, Hospice)? DNR status @ -No What co-morbidities impacted this encounter? (DM, HTN, Smoking, COPD, CAD, Cancer, CVA, ARF, Chemo, Hep., AIDS, mental health diagnosis, sleep apnea, morbid obesity)? @ -None Was patient admitted / discharged? Hospital course, mention meds given and route, prescriptions, significant lab abnormalities, going to OR and other pertinent info. @ -Patient will be admitted with concern for possible dual diagnosis of pneumonia and COVID-19. There is concern for bacterial pneumonia with elevated white blood cell count and chest x-ray appearance. Patient will value from pro- calcitonin level in ulnar consult Undiagnosed new problem with uncertain prognosis? @ -No Drug Therapy requiring intensive monitoring for toxicity (Heparin, Nitro, Insulin, Cardizem)? @ -No Were any procedures done? @ -No Diagnosis/symptom? @ -Pneumonia, COVID-19 Acute, or Chronic, or Acute on Chronic? @ -Acute, acute Uncomplicated (without systemic symptoms) or Complicated (systemic symptoms)? @ -default Side effects of treatment? @ -No Exacerbation, Progression, or Severe Exacerbation? @ -No Poses a threat to life or bodily function? How? (Chest pain, [place], NH, pneumonia, PE, COPD, DKA, ARF, appy, cholecystitis, CVA, Diverticulitis, Homicidal, Suicidal, threat to staff... and all critical care pts) @ -No - Lab Data Result diagrams: 11/14/22 16:23 11/14/22 16: Lab Results 11/14/22 11/14/22 11/14/22 Range/Units 16:23 16:23 16: WBC 19.5 H (3.8-10.6) k/uL RBC 4.78 (4.30-5.90) m/uL Hgb 15.7 (13.0-17.5) gm/dL Hct 46.7 (39.0-53.0) % MCV 97.7 (80.0-100.0) fL MCH 32.9 (25.0-35.0) pg MCHC 33.7 (31.0-37.0) g/dL RDW 13.8 (11.5-15.5) % Plt Count 229 (150-450) k/uL MPV 7.5 Neutrophils % 83 % Lymphocytes % 7 % Monocytes % 7 % Eosinophils % 0 % Basophils % 0 % Neutrophils # 16.3 H (1.3-7.7) k/uL Lymphocytes # 1.4 (1.0-4.8) k/uL Monocytes # 1.4 H (0-1.0) k/uL Eosinophils # 0.1 (0-0.7) k/uL Basophils # 0.1 (0-0.2) k/uL PT 11.1 (9.0-12.0) sec INR 1.1 (<1.2) APTT 24.6 (22.0-30.0) sec D-Dimer 0.30 (<0.60) mg/L FEU Sodium 135 L (137-145) mmol/L Potassium 4.0 (3.5-5.1) mmol/L Chloride 98 (98-107) mmol/L Carbon Dioxide 29 (22-30) mmol/L Anion Gap 8 mmol/L BUN 20 (9-20) mg/dL Creatinine 0.97 (0.66-1.25) mg/dL Est GFR (CKD-EPI)AfAm >90 (>60 ml/min/1.73 sqM) Est GFR (CKD-EPI)NonAf 81 (>60 ml/min/1.73 sqM) Glucose 183 H (74-99) mg/dL Plasma Lactic Acid Ismael (0.7-2.0) mmol/L Calcium 8.7 (8.4-10.2) mg/dL Magnesium 1.9 (1.6-2.3) mg/dL Total Bilirubin 0.9 (0.2-1.3) mg/dL AST 47 (17-59) U/L ALT 39 (4-49) U/L Alkaline Phosphatase 51 (38-126) U/L Troponin I (0.000-0.034) ng/mL NT-Pro-B Natriuret Pep pg/mL Total Protein 7.9 (6.3-8.2) g/dL Albumin 4.0 (3.5-5.0) g/dL Influenza Type A (PCR) (Not Detectd) Influenza Type B (PCR) (Not Detectd) RSV (PCR) (Not Detectd) SARS-CoV-2 (PCR) (Not Detectd) 11/14/22 11/14/22 11/14/22 Range/Units 16:23 16:23 16:23 WBC (3.8-10.6) k/uL RBC (4.30-5.90) m/uL Hgb (13.0-17.5) gm/dL Hct (39.0-53.0) % MCV (80.0-100.0) fL MCH (25.0-35.0) pg MCHC (31.0-37.0) g/dL RDW (11.5-15.5) % Plt Count (150-450) k/uL MPV Neutrophils % % Lymphocytes % % Monocytes % % Eosinophils % % Basophils % % Neutrophils # (1.3-7.7) k/uL Lymphocytes # (1.0-4.8) k/uL Monocytes # (0-1.0) k/uL Eosinophils # (0-0.7) k/uL Basophils # (0-0.2) k/uL PT (9.0-12.0) sec INR (<1.2) APTT (22.0-30.0) sec D-Dimer (<0.60) mg/L FEU Sodium (137-145) mmol/L Potassium (3.5-5.1) mmol/L Chloride (98-107) mmol/L Carbon Dioxide (22-30) mmol/L Anion Gap mmol/L BUN (9-20) mg/dL Creatinine (0.66-1.25) mg/dL Est GFR (CKD-EPI)AfAm (>60 ml/min/1.73 sqM) Est GFR (CKD-EPI)NonAf (>60 ml/min/1.73 sqM) Glucose (74-99) mg/dL Plasma Lactic Acid Ismael 1.8 (0.7-2.0) mmol/L Calcium (8.4-10.2) mg/dL Magnesium (1.6-2.3) mg/dL Total Bilirubin (0.2-1.3) mg/dL AST (17-59) U/L ALT (4-49) U/L Alkaline Phosphatase (38-126) U/L Troponin I 0.024 (0.000-0.034) ng/mL NT-Pro-B Natriuret Pep 532 pg/mL Total Protein (6.3-8.2) g/dL Albumin (3.5-5.0) g/dL Influenza Type A (PCR) (Not Detectd) Influenza Type B (PCR) (Not Detectd) RSV (PCR) (Not Detectd) SARS-CoV-2 (PCR) (Not Detectd) 11/14/22 Range/Units 16:23 WBC (3.8-10.6) k/uL RBC (4.30-5.90) m/uL Hgb (13.0-17.5) gm/dL Hct (39.0-53.0) % MCV (80.0-100.0) fL MCH (25.0-35.0) pg MCHC (31.0-37.0) g/dL RDW (11.5-15.5) % Plt Count (150-450) k/uL MPV Neutrophils % % Lymphocytes % % Monocytes % % Eosinophils % % Basophils % % Neutrophils # (1.3-7.7) k/uL Lymphocytes # (1.0-4.8) k/uL Monocytes # (0-1.0) k/uL Eosinophils # (0-0.7) k/uL Basophils # (0-0.2) k/uL PT (9.0-12.0) sec INR (<1.2) APTT (22.0-30.0) sec D-Dimer (<0.60) mg/L FEU Sodium (137-145) mmol/L Potassium (3.5-5.1) mmol/L Chloride (98-107) mmol/L Carbon Dioxide (22-30) mmol/L Anion Gap mmol/L BUN (9-20) mg/dL Creatinine (0.66-1.25) mg/dL Est GFR (CKD-EPI)AfAm (>60 ml/min/1.73 sqM) Est GFR (CKD-EPI)NonAf (>60 ml/min/1.73 sqM) Glucose (74-99) mg/dL Plasma Lactic Acid Ismael (0.7-2.0) mmol/L Calcium (8.4-10.2) mg/dL Magnesium (1.6-2.3) mg/dL Total Bilirubin (0.2-1.3) mg/dL AST (17-59) U/L ALT (4-49) U/L Alkaline Phosphatase (38-126) U/L Troponin I (0.000-0.034) ng/mL NT-Pro-B Natriuret Pep pg/mL Total Protein (6.3-8.2) g/dL Albumin (3.5-5.0) g/dL Influenza Type A (PCR) Not Detected (Not Detectd) Influenza Type B (PCR) Not Detected (Not Detectd) RSV (PCR) Not Detected (Not Detectd) SARS-CoV-2 (PCR) Detected A (Not Detectd) Disposition Clinical Impression: Pneumonia, COVID-19 Disposition: ADMITTED IP TO THIS [facility] Condition: Serious Is patient prescribed a controlled substance at d/c from ED?: No Referrals: Debra Ogden MD [Primary Care Provider] - 1-2 days Time of Disposition: 18:26
--- NOTE | 2022-11-14 16:31 | XR ---
EXAMINATION TYPE: XR chest 2V DATE OF EXAM: 11/14/2022 COMPARISON: 01/26/2021 HISTORY: Shortness of breath TECHNIQUE: Frontal and lateral views of the chest are obtained. FINDINGS: Scattered senescent parenchymal changes noted. Hyperinflation compatible with COPD. Right upper lobe infiltrate and patchy density right medial lung base. Correlate for pneumonia. Heart size is stable. Mediastinal structures are stable and grossly unremarkable. No evidence for hilar prominence. Degenerative changes dorsal spine. IMPRESSION: 1. Right upper lobe infiltrate and patchy density right medial lung base. Correlate for pneumonia.
[2022-11-14 16:47] LABS: Basophils # (A) 0.1 k/uL (0-0.2); Basophils % (A) 0 %; Eosinophils # (A) 0.1 k/uL (0-0.7); Eosinophils % (A) 0 %; HCT 46.7 % (39.0-53.0); HGB 15.7 gm/dL (13.0-17.5); Lymphocytes # (A) 1.4 k/uL (1.0-4.8); Lymphocytes % (A) 7 %; MCH 32.9 pg (25.0-35.0); MCHC 33.7 g/dL (31.0-37.0); MCV 97.7 fL (80.0-100.0); Mean Platelet Volume 7.5; Monocytes # (A) 1.4 k/uL (0-1.0); Monocytes % (A) 7 %; Neutrophils # (A) 16.3 k/uL (1.3-7.7); Neutrophils % (A) 83 %; Platelet Count 229 k/uL (150-450); RBC 4.78 m/uL (4.30-5.90); RDW 13.8 % (11.5-15.5); WBC 19.5 k/uL (3.8-10.6)
[2022-11-14 17:02] LABS: ALT 39 U/L (4-49); AST 47 U/L (17-59); African American GFR (CKD) >90 (>60 ml/min/1.73 sqM); Alkaline Phosphatase 51 U/L (38-126); Anion Gap 8 mmol/L; Blood Urea Nitrogen 20 mg/dL (9-20); Calcium 8.7 mg/dL (8.4-10.2); Carbon Dioxide 29 mmol/L (22-30); Chloride 98 mmol/L (98-107); Glucose 183 mg/dL (74-99); Magnesium 1.9 mg/dL (1.6-2.3); Non-African American GFR(CKD) 81 (>60 ml/min/1.73 sqM); Sodium 135 mmol/L (137-145); Total Bilirubin 0.9 mg/dL (0.2-1.3); Total Protein 7.9 g/dL (6.3-8.2)
[2022-11-14 17:04] LABS: INR 1.1 (<1.2); Partial Thromboplastin Time 24.6 sec (22.0-30.0); Prothrombin Time 11.1 sec (9.0-12.0)
[2022-11-14] MEDS ORDERED: AZITHROMYCIN 500 MG in SODIUM CHLORIDE 0.9% 250 ML IVPB STA (18:27)
[2022-11-14] MEDS ORDERED: PNEUMONIA PROTOCOL UTILIZED 1 EACH MISC PO PRN (18:27)
[2022-11-14] MEDS: SODIUM CHLORIDE 0.9% 1,000 ML IV SCH (19:00)
[2022-11-14] MEDS ORDERED: IPRATROPIUM-ALBUTEROL 3 ML NEB INHALATION PRN (23:43)
[2022-11-15] MEDS ORDERED: RX INFO: IV CONTRAST WAS GIVEN 1 EACH MISC MISCELLANE PRN (01:38)
--- NOTE | 2022-11-15 02:14 | P.CNPUL ---
History of Present Illness Consult date: 11/15/22 Requesting physician: Pietro Pyle Reason for consult: pneumonia Chief complaint: Shortness of breath, chest pain, hemoptysis History of present illness: I'm seeing this patient in new consultation today 11/15/2022 for COVID-19 pneumonia with possible superimposed bacterial infection. Patient is a 67-year-old white male with past medical history of moderate persistent asthma, obstructive sleep apnea normally maintained on CPAP with pressures of 18 cm of water, previous COVID-19 pneumonia, obesity, atrial fibrillation anticoagulated on Xarelto, he does have a significant past history of smoking quitting 12 years ago. Patient does follow with Dr. Walton in the office. Patient came into the emergency room yesterday reporting progressive shortness of breath over the last 3 months and some nonradiating right-sided chest pain with hemoptysis starting approximately a day ago. The chest pain is worse with coughing and deep breathing. Patient has associated chills. Patient did have a similar presentation back in January 2021. Patient is currently resting in bed, on room air, in no acute distress. Patient's chest x-ray on arrival showed a right upper lobe infiltrate and patchy density of the right medial lung base. Patient did test positive for COVID-19. He is not vaccinated for COVID-19. Most recent CBC shows some leukocytosis with a WBC count of 19.5, hemoglobin 15.7, hemato crit 46.7, platelets 229,000. D-dimer was low at 0.3, and the patient was anticoagulated on arrival. Clinical suspicion of pulmonary embolism is low. Coagulation profile was within normal limits. BMP was essentially normal with the exception of an elevated blood glucose of 183. Troponins negative 1. NT proBNP was low at 532. Patient was negative for influenza and RSV. Currently receiving antibiotics for possible superimposed community associated pneumonia. Procalcitonin level is pending. Vital signs are stable at this time. Review of Systems REVIEW OF SYSTEMS: CONSTITUTIONAL: Denies any recent significant weight loss or weight gain. EYES: Denies change in vision. EARS, NOSE, MOUTH, THROAT: Denies headaches, denies sore throat. CARDIOVASCULAR: Denies palpitations or syncopal episodes. RESPIRATORY: See HPI GASTROINTESTINAL: Denies change in appetite, abdominal pain, nausea and vomiting, or diarrhea GENITOURINARY: Denies hematuria, denies infections. MUSKULOSKELETAL: Denies pain, denies swelling. INTEGUMENTARY: Denies rash, denies eczema. NEUROLOGICAL: Denies recent memory loss, no recent seizure activity. PSYCHIATRIC: Denies anxiety, denies depression. HEMATOLOGIC/LYMPHATIC: Denies anemia, denies enlarged lymph node Past Medical History Past Medical History: Atrial Fibrillation, Asthma, Hypertension, Osteoarthritis (OA), Sleep Apnea/CPAP/BIPAP Additional Past Medical History / Comment(s): HAS A C PAP MACHINE History of Any Multi-Drug Resistant Organisms: None Reported Past Surgical History: Cardiac Ablation, Hernia Repair, Orthopedic Surgery Additional Past Surgical History / Comment(s): ARTHROSCOPIC R knee, sinus x 2, LT CATARACT SX, COLONOSCOPY, Past Anesthesia/Blood Transfusion Reactions: No Reported Reaction Past Psychological History: No Psychological Hx Reported Smoking Status: Former smoker Past Alcohol Use History: None Reported Additional Past Alcohol Use History / Comment(s): STARTED SMOKING AT AGE 15 QUIT SMOKING -2006 SMOKED 3 PPD Past Drug Use History: None Reported - Past Family History Mother Family Medical History: No Reported History Brother(s) Family Medical History: Cancer Medications and Allergies Home Medications Medication Instructions Recorded Confirmed Type Montelukast [Singulair] 10 mg PO HS 11/04/20 11/14/22 History Albuterol Sulfate [Proair Hfa] 2 puff INHALATION RT-QID PRN 01/22/21 11/14/22 History Rivaroxaban [Xarelto] 20 mg PO W/SUPPER 12/19/21 11/14/22 History Budesonide-Formot 160-4.5 Mcg 2 puff INHALATION RT-BID 02/03/22 11/14/22 History [Symbicort 160-4.5 Mcg Inhaler] Fluticasone Nasal [place] [Flonase 2 spray EA NOSTRIL DAILY 06/26/22 11/14/22 History Nasal [place]] Venlafaxine HCl [Effexor XR] 150 mg PO DAILY 06/26/22 11/14/22 History lamoTRIgine [LaMICtal] 100 mg PO BID 06/26/22 11/14/22 History Furosemide [Lasix] 80 mg PO DAILY 11/14/22 11/14/22 History Losartan Potassium [Cozaar] 100 mg PO DAILY 11/14/22 11/14/22 History Testosterone Cypionate 200 mg IM Q14D 11/14/22 11/14/22 History [Depo-Testosterone] Allergies Allergy/AdvReac Type Severity Reaction Status Date / Time No Known Allergies Allergy Verified 11/14/22 16:55 Physical Exam Vitals: Vital Signs Temp Pulse Pulse Resp BP BP Pulse Ox 11/14/22 21:30 24 11/14/22 21:10 98.3 F 71 26 H 135/65 98 11/14/22 19:30 98.8 F 72 18 122/78 96 11/14/22 18:08 81 18 104/68 93 L 11/14/22 16:00 99.9 F H 11/14/22 15:52 28 H 11/14/22 15:21 98.2 F 77 28 H 161/69 97 Intake and Output 11/14/22 11/14/22 11/15/22 14:59 22:59 06:59 Other: Weight 181.437 kg GENERAL EXAM: Alert, 67-year-old morbidly obese white male, comfortable in no ap parent distress. HEAD: Normocephalic and atraumatic EYES: Normal reaction of pupils, equal size. NOSE: Clear with pink turbinates. THROAT: No erythema or exudates. NECK: No masses, no JVD. CHEST: No chest wall deformity. LUNGS: Equal air entry with scattered rhonchi throughout and focal dullness of the right upper lobe. no crackles, wheeze. On room air. No conversational dyspnea or accessory muscle use.. CVS: S1 and S2 normal with soft grade 2 systolic murmur heard best at the left sternal border, irregular rhythm of 80 bpm. No other extra heart sounds ABDOMEN: Obese abdomen, No hepatosplenomegaly, active bowel sounds, no guarding or rigidity. SPINE: No scoliosis or deformity SKIN: No rashes CENTRAL NERVOUS SYSTEM: No focal deficits, tone is normal in all 4 extremities. EXTREMITIES: There is mild bilateral lower extremity nonpitting edema, clubbing, or cyanosis. Peripheral pulses are intact. Results - Laboratory Findings CBC and BMP: 11/14/22 16:23 11/14/22 16: PT/INR, D-dimer PT 11.1 sec (9.0-12.0) 11/14/22 16: INR 1.1 (<1.2) 11/14/22: D-Dimer 0.30 mg/L FEU (<0.60) 11/14/22 16:23 Abnormal lab findings: Abnormal Labs 11/14/22 11/14/22 11/14/22 16:23 16:23 16:23 WBC 19.5 H Neutrophils # 16.3 H Monocytes # 1.4 H Sodium 135 L Glucose 183 H SARS-CoV-2 (PCR) Detected A - Diagnostic Findings Chest x-ray: image reviewed Assessment and Plan Assessment: COVID-19 pneumonia with possible superimposed bacterial infection. Patient has been experiencing symptoms over the last couple months, with recent worsening in symptoms. Currently on room air, oxygenating at 98%. Not a candidate for anti viral therapy. Recurrent hemoptysis chest pain, ischemia has been ruled out Moderate persistent asthma Obstructive sleep apnea normally maintained on a CPAP with pressure settings of 18 cm H2O Morbid obesity Hypertension Atrial fibrillation with controlled ventricular rate, anticoagulated on Xarelto Ex-smoker, quitting 12 years ago. Patient does have significant smoking history of approximately 90 pack years. Plan: Patient's medications, labs, chest x-ray reviewed Continue empiric antibiotics for possible superimposed bacterial community- acquired pneumonia Check procalcitonin level On room air Continue bronchodilators and restart Symbicort inhaler Hold Xarelto Will order chest CT with contrast Blood cultures pending Sputum culture ordered Urine Legionella antigen ordered We will continue to follow I have personally seen and examined the patient, performed the documentation and the assessment and plan as written. Number of minutes spent on the visit:20 Time with Patient: Greater than 30
[2022-11-15] MEDS: SODIUM CHLORIDE 0.9% 1,000 ML IV SCH ×2 (06:44→09:11)
--- NOTE | 2022-11-15 07:26 | XR ---
EXAMINATION TYPE: XR chest 2V DATE OF EXAM: 11/15/2022 7:06 AM COMPARISON: Chest radiographs from 11/14/2022. TECHNIQUE: XR chest 2V Frontal and lateral views of the chest. CLINICAL INDICATION:Male, 67 years old with history of pneumonia; FINDINGS: Lungs/Pleura: Patchy consolidation demonstrated within the right midlung. No pleural effusion or pneu mothorax. Hyperinflation. Pulmonary vascularity: Unremarkable. Heart/mediastinum: Cardiomediastinal silhouette is unremarkable. Musculoskeletal: No acute osseous pathology. IMPRESSION: Similar right mid lung consolidation concerning for pneumonia.
--- NOTE | 2022-11-15 07:34 | CT ---
EXAMINATION TYPE: CT chest w con CT DLP: 1476.6 mGycm, Automated exposure control for dose reduction was used. DATE OF EXAM: 11/15/2022 7:17 AM COMPARISON: Chest radiograph 11/15/2022, CTA chest 01/22/2021 CLINICAL INDICATION:Male, 67 years old wi th history of chest pain and recurrent hemoptysis; PHH, chest pain, hemoptysis, Covid TECHNIQUE: Multiple axial images were obtained through the chest following the administration of 100 cc of Isovue 300. FINDINGS: LUNGS/ PLEURA: Wedge-shaped regions of consolidation within the right upper lobe and right middle lob e. Calcified granulomas within the left lower lobe. No pleural effusion or pneumothorax. AIRWAY: Patent and unremarkable.. HEART: Probably prominent. No pericardial effusion. . MEDIASTINUM: Enlarged right hilar lymph measuring 1.6 cm in short axis. Calcified mediastinal and lef t hilar lymph nodes. VASCULATURE: No aortic aneurysm. MUSCULOSKELETAL: Mild disc degeneration changes are present throughout the thoracolumbar spine.. No a ggressive osseous lesion. No acute osseous abnormality. SOFT TISSUES/LYMPH NODES: Unremarkable. LOWER NECK: No significant findings. UPPER ABDOMEN: Diffuse low-attenuation to the liver parenchyma. Cholelithiasis. IMPRESSION: 1. Few wedge-shaped regions of consolidation within the right upper lobe and right middle lobe favore d to represent multifocal pneumonia. Continued follow-up is recommended to ensure resolution. 2. Right hilar adenopathy likely reactive to #1. 3. Cholelithiasis. 4. Hepatic steatosis. 5. Sequelae of prior granulomatous disease.
[2022-11-15] MEDS: SYMBICORT 160-4.5 MCG INHALER INHALATION SCH ×2 (08:55→21:40)
[2022-11-15] MEDS: ALBUTEROL HFA INHALER INHALATION SCH ×4 (08:55→21:40)
[2022-11-15] MEDS: ASCORBIC ACID 500 MG TAB PO SCH (09:10)
[2022-11-15] MEDS: ZINC SULFATE 220 MG CAP PO SCH (09:10)
[2022-11-15] MEDS: lamoTRIgine 100 MG TAB PO SCH ×2 (09:59→19:51)
[2022-11-15] MEDS: VENLAFAXINE HCL ER 150 MG CAP PO SCH (09:59)
--- NOTE | 2022-11-15 14:43 | P.HPIM ---
History of Present Illness H&P Date: 11/15/22 Chief Complaint: Shortness of breath, cough * 67-year-old gentleman with past medical history significant for optional to sleep apnea, asthma, previous history of COVID-19, history of atrial fibrillation anticoagulated with laser alto, presented to the emergency department with complaints of shortness of breath ongoing for the last 2-3 months. Patient states for the last few days he was noticed to have chest pain and hemoptysis the chest pain was pleuritic and worse with deep breathing. * At the time of evaluation in ER patient had a chest x-ray done which showed right upper lobe infiltrate. Patient was noted to have a low d-dimer. Hence clinical suspicion for pulmonary embolism was low. Patient was negative for influenza and RSV. Troponin of pain was negative. N-terminal proBNP 532. * Patient had a follow-up CT chest on 11/15 which showed virtual consolidation no pulmonary embolism was noted * Patient admitted for management of superimposed ethereal pneumonia with a history of COVID-19 Review of Systems REVIEW OF SYSTEMS: Essentially negative except fever, cough, chest pain, shortness of breath, wheezing, hemoptysis CONSTITUTIONAL: No r, no malaise, no fatigue. HEENT: No recent visual problems or hearing problems. Denied any sore throat. CARDIOVASCULAR: Non, orthopnea, PND, no palpitations, no syncope. PULMONARY: cough, chest pain, shortness of breath, wheezing, hemoptysis GASTROINTESTINAL: No diarrhea, no nausea, no vomiting, no abdominal pain. NEUROLOGICAL: No headaches, no weakness, no numbness. HEMATOLOGICAL: Denies any bleeding or petechiae. GENITOURINARY: Denies any burning micturition, frequency, or urgency. MUSCULOSKELETAL/RHEUMATOLOGICAL: Denies any joint pain, swelling, or any muscle pain. ENDOCRINE: Denies any polyuria or polydipsia. Past Medical History Past Medical History: Atrial Fibrillation, Asthma, Hypertension, Osteoarthritis (OA), Sleep Apnea/CPAP/BIPAP Additional Past Medical History / Comment(s): HAS A C PAP MACHINE History of Any Multi-Drug Resistant Organisms: None Reported Past Surgical History: Cardiac Ablation, Hernia Repair, Orthopedic Surgery Additional Past Surgical History / Comment(s): ARTHROSCOPIC R knee, sinus x 2, LT CATARACT SX, COLONOSCOPY, Past Anesthesia/Blood Transfusion Reactions: No Reported Reaction Past Psychological History: No Psychological Hx Reported Smoking Status: Former smoker Past Alcohol Use History: None Reported Additional Past Alcohol Use History / Comment(s): STARTED SMOKING AT AGE 15 QUIT SMOKING -2006 SMOKED 3 PPD Past Drug Use History: None Reported - Past Family History Mother Family Medical History: No Reported History Brother(s) Family Medical History: Cancer Medications and Allergies Home Medications Medication Instructions Recorded Confirmed Type Montelukast [Singulair] 10 mg PO HS 11/04/20 11/14/22 History Albuterol Sulfate [Proair Hfa] 2 puff INHALATION RT-QID PRN 01/22/21 11/14/22 History Rivaroxaban [Xarelto] 20 mg PO W/SUPPER 12/19/21 11/14/22 History Budesonide-Formot 160-4.5 Mcg 2 puff INHALATION RT-BID 02/03/22 11/14/22 History [Symbicort 160-4.5 Mcg Inhaler] Fluticasone Nasal [place] [Flonase 2 spray EA NOSTRIL DAILY 06/26/22 11/14/22 History Nasal [place]] Venlafaxine HCl [Effexor XR] 150 mg PO DAILY 06/26/22 11/14/22 History lamoTRIgine [LaMICtal] 100 mg PO BID 06/26/22 11/14/22 History Furosemide [Lasix] 80 mg PO DAILY 11/14/22 11/14/22 History Losartan Potassium [Cozaar] 100 mg PO DAILY 11/14/22 11/14/22 History Testosterone Cypionate 200 mg IM Q14D 11/14/22 11/14/22 History [Depo-Testosterone] Allergies Allergy/AdvReac Type Severity Reaction Status Date / Time No Known Allergies Allergy Verified 11/14/22 16:55 Physical Exam Vitals: Vital Signs Temp Pulse Pulse Resp BP BP Pulse Ox 11/15/22 13:46 98.4 F 62 20 125/72 93 L 11/15/22 08:56 92 L 11/15/22 06:57 98.5 F 57 L 17 121/83 92 L 11/15/22 02:00 99.5 F 79 21 143/61 93 L 11/14/22 21:30 24 11/14/22 21:10 98.3 F 71 26 H 135/65 98 11/14/22 19:30 98.8 F 72 18 122/78 96 11/14/22 18:08 81 18 104/68 93 L 11/14/22 16:00 99.9 F H 11/14/22 15:52 28 H 11/14/22 15:21 98.2 F 77 28 H 161/69 97 Intake and Output 11/14/22 11/15/22 11/15/22 22:59 06:59 14:59 Other: # Voids 2 Weight 181.437 kg Results CBC & Chem 7: 11/14/22 16:23 11/14/22 16:23 Labs: Abnormal Lab Results - Last 24 Hours (Table) 11/14/22 11/14/22 11/14/22 Range/Units 16:23 16:23 16:23 WBC 19.5 H (3.8-10.6) k/uL Neutrophils # 16.3 H (1.3-7.7) k/uL Monocytes # 1.4 H (0-1.0) k/uL Sodium 135 L (137-145) mmol/L Glucose 183 H (74-99) mg/dL C-Reactive Protein (<1.0) mg/dL Procalcitonin (0.02-0.09) ng/mL SARS-CoV-2 (PCR) Detected A (Not Detectd) 11/14/22 11/15/22 Range/Units 18:36 06:50 WBC (3.8-10.6) k/uL Neutrophils # (1.3-7.7) k/uL Monocytes # (0-1.0) k/uL Sodium (137-145) mmol/L Glucose (74-99) mg/dL C-Reactive Protein 23.2 H (<1.0) mg/dL Procalcitonin 0.20 H (0.02-0.09) ng/mL SARS-CoV-2 (PCR) (Not Detectd) Thrombosis Risk Factor Assmnt - DVT/VTE Prophylaxis DVT/VTE Prophylaxis: Mechanical Prophylaxis ordered Assessment and Plan Assessment: Assessment and plan * Superimposed right upper lobe pneumonia with history of COVID-19 * recurrent hemoptysis * Moderate persistent asthma with acute exacerbation * History of atrial fibrillation rate controlled * Obstructive sleep apnea * Morbid obesity * For pneumonia continue patient on Rocephin and azithromycin, urine Legionella ordered, tested positive for COVID-19, influenza and RBC negative * For recurrent hemoptysis continue to hold Xarelto, review of home medications does not show any rate control medications, losartan on hold can resume within the next 24 hour * For asthma continue [place] treatments, bronchodilator protocol started on IV salamander * 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
[2022-11-15] MEDS: methylPREDNISolone SOD SUCCI 40 MG/ML 1 ML VIAL IV SCH ×2 (14:54→22:07)
[2022-11-15] MEDS: AZITHROMYCIN 500 MG TAB PO SCH (16:49)
[2022-11-15] MEDS ORDERED: RIVAROXABAN 20 MG TAB PO SCH (17:30)
[2022-11-15] MEDS: MONTELUKAST 10 MG TAB PO SCH (19:50)
[2022-11-15] MEDS ORDERED: SYMBICORT 160-4.5 MCG INHALER INHALATION SCH (20:00)
[2022-11-16] MEDS: ALBUTEROL HFA INHALER INHALATION SCH ×4 (08:58→20:43)
[2022-11-16] MEDS: SYMBICORT 160-4.5 MCG INHALER INHALATION SCH ×2 (08:58→20:43)
[2022-11-16] MEDS: FUROSEMIDE 80 MG TAB PO SCH (09:44)
[2022-11-16] MEDS: lamoTRIgine 100 MG TAB PO SCH ×2 (09:44→20:53)
[2022-11-16] MEDS: ZINC SULFATE 220 MG CAP PO SCH (09:44)
[2022-11-16] MEDS: VENLAFAXINE HCL ER 150 MG CAP PO SCH (09:44)
[2022-11-16] MEDS: ASCORBIC ACID 500 MG TAB PO SCH (09:44)
[2022-11-16] MEDS: FLUTICASONE 50MCG/SPRAY NASAL 16GM EA NOSTRIL SCH (09:45)
--- NOTE | 2022-11-16 10:11 | P.PN ---
Subjective Progress Note Date: 11/16/22 I'm seeing this patient in new consultation today 11/15/2022 for COVID-19 pneumonia with possible superimposed bacterial infection. Patient is a 67-year-old white male with past medical history of moderate persistent asthma, obstructive sleep apnea normally maintained on CPAP with pressures of 18 cm of w ater, previous COVID-19 pneumonia, obesity, atrial fibrillation anticoagulated on Xarelto, he does have a significant past history of smoking quitting 12 years ago. Patient does follow with Dr. Walton in the office. Patient came into the emergency room yesterday reporting progressive shortness of breath over the last 3 months and some nonradiating right-sided chest pain with hemoptysis starting approximately a day ago. The chest pain is worse with coughing and deep breathing. Patient has associated chills. Patient did have a similar presentation back in January 2021. Patient is currently resting in bed, on room air, in no acute distress. Patient's chest x-ray on arrival showed a right u pper lobe infiltrate and patchy density of the right medial lung base. Patient did test positive for COVID-19. He is not vaccinated for COVID-19. Most recent CBC shows some leukocytosis with a WBC count of 19.5, hemoglobin 15.7, hematocrit 46.7, platelets 229,000. D-dimer was low at 0.3, and the patient was anticoagulated on arrival. Clinical suspicion of pulmonary embolism is low. Coagulation profile was within normal limits. BMP was essentially normal with the exception of an elevated blood glucose of 183. Troponins negative 1. NT proBNP was low at 532. Patient was negative for influenza and RSV. Currently receiving antibiotics for possible superimposed community associated pneumonia. Procalcitonin level is pending. Vital signs are stable at this time. The patient is seen today 11/16/2022 in follow-up on the regular medical floor. He is currently sitting up in a chair at the bedside. Awake alert no acute distress. Currently maintaining good O2 saturations in the 90s on room air. Afebrile. Hemodynamically stable. He is feeling better today compared to yesterday. Pro-calcitonin 0.20. Legionella screen negative. He is continued on Rocephin and azithromycin. Computed tomography scan of the chest revealed few wedge-shaped regions of consolidation within the right upper lobe and right middle lobe favored to represent multifocal pneumonia. Not consistent with COVID-19 pneumonia. Right hilar adenopathy likely reactive. Blood cultures reveal no growth. He is continued on Symbicort, albuterol, IV Solu-Medrol. Vitamin supplements. No further episodes of hemoptysis. Xarelto to be resumed. Objective - Vital Signs Vital signs: Vital Signs Temp 97.6 F 11/16/22 07:36 Pulse 68 11/16/22 07:36 Resp 18 11/16/22 07:36 BP 149/99 11/16/22 07:36 Pulse Ox 94 L 11/16/22 08:58 FiO2 Intake & Output 11/15/22 11/16/22 11/16/22 18:59 06:59 18:59 Intake Total 650 Balance 650 Intake: Intake, IV Titration 650 Amount Sodium Chloride 0.9% 1, 600 000 ml @ 100 mls/hr IV . Q10H [facility] Rx#:[id number] cefTRIAXone 2 gm In 50 Sodium Chloride 0.9% 50 ml @ 100 mls/hr IVPB Q24HR [facility] Rx#:[id number] Other: Voiding Method Toilet # Voids 5 3 - Exam GENERAL EXAM: Alert, very pleasant 67-year-old morbidly obese male, on room air, comfortable in no apparent distress. HEAD: Normocephalic and atraumatic EYES: Normal reaction of pupils, equal size. NOSE: Clear with pink turbinates. THROAT: No erythema or exudates. NECK: No masses, no JVD. CHEST: No chest wall deformity. LUNGS: Equal air entry with scattered rhonchi throughout and focal dullness of the right upper lobe. no crackles, wheeze. No conversational dyspnea or accessory muscle use.. CVS: S1 and S2 normal with soft grade 2 systolic murmur heard best at the left sternal border, irregular rhythm of 68 bpm. No other extra heart sounds ABDOMEN: Obese abdomen, No hepatosplenomegaly, active bowel sounds, no guarding or rigidity. SPINE: No scoliosis or deformity SKIN: No rashes CENTRAL NERVOUS SYSTEM: No focal deficits, tone is normal in all 4 extremities. EXTREMITIES: There is mild bilateral lower extremity nonpitting edema, clubbing, or cyanosis. Peripheral pulses are intact. - Labs CBC & Chem 7: 11/14/22 16:23 11/14/22 16:23 Labs: Abnormal Lab Results - Last 24 Hours (Table) 11/15/22 Range/Units 06:50 C-Reactive Protein 23.2 H (<1.0) mg/dL Microbiology - Last 24 Hours (Table) 11/14/22 17:50 Blood Culture - Preliminary Blood No Growth after 24 hours 11/14/22 18:05 Blood Culture - Preliminary Blood No Growth after 24 hours Assessment and Plan Assessment: COVID-19 pneumonia with possible superimposed bacterial infection. Pro- calcitonin 0.20. Continued on Rocephin and azithromycin. Patient has been experiencing symptoms over the last couple months, with recent worsening in symptoms. Currently on room air, oxygenating at 94%. Not a candidate for antiviral therapy. Recurrent hemoptysis, resolved Chest pain, ischemia has been ruled out Moderate persistent asthma Obstructive sleep apnea normally maintained on a CPAP with pressure settings of 18 cm H2O Morbid obesity Hypertension Atrial fibrillation with controlled ventricular rate, anticoagulated on Xarelto Ex-smoker, quitting 12 years ago. Patient does have significant smoking history of approximately 90 pack years. Plan: The patient was seen and evaluated Computed tomography scan, chest x-ray, medications reviewed Stable and on room air Continue current treatment plan Resume Xarelto, no further hemoptysis We'll continue to follow I have personally seen and examined the patient, performed the documentation and the assessment and plan as written. Number of minutes spent on the visit: 10.
[2022-11-16] MEDS: methylPREDNISolone SOD SUCCI 40 MG/ML 1 ML VIAL IV SCH ×2 (10:31→20:53)
[2022-11-16 10:51] LABS: HCT 47.7 % (39.6-50.0); HGB 15.3 g/dL (13.0-17.0); MCH 31.4 pg (27.0-32.0); MCHC 32.1 g/dL (32.0-37.0); MCV 97.9 fL (80.0-97.0); NRBC Per 100 WBC 0 /100 WBCS (0.0-0.0); Platelet Count 259 X 10*3/uL (140-440); RBC 4.87 X 10*6/uL (4.40-5.60); RDW 13.8 % (11.5-14.5); WBC 10.62 X 10*3/uL (4.50-10.00)
[2022-11-16 11:17] LABS: African American GFR (CKD) 94.9 (60.0-200.0); Anion Gap 11.5 mmol/L (10.00-18.00); BUN/Creat Ratio 18.31 Ratio (12.00-20.00); Blood Urea Nitrogen 17.5 mg/dL (9.0-27.0); C Reactive Protein 22.8 mg/dL (0.00-0.80); Calcium 8.8 mg/dL (8.7-10.3); Carbon Dioxide 25.4 mmol/L (20.0-27.5); Non-African American GFR(CKD) 81.9 (60.0-200.0); Potassium 4.4 mmol/L (3.5-5.5)
[2022-11-16 11:39] LABS: Basophils % (A) 0 %; Eosinophils % (A) 0 %; HCT 49.2 % (39.0-53.0); HGB 15.6 gm/dL (13.0-17.5); Lymphocytes % (A) 8 %; MCHC 31.7 g/dL (31.0-37.0); MCV 100.8 fL (80.0-100.0); Macrocytosis Slight; Mean Platelet Volume 7.7; Monocytes # (A) 0.7 k/uL (0-1.0); Monocytes % (A) 6 %; Neutrophils # (A) 10.5 k/uL (1.3-7.7); Neutrophils % (A) 84 %; Platelet Count 260 k/uL (150-450); RBC 4.88 m/uL (4.30-5.90); RDW 13.7 % (11.5-15.5); WBC 12.5 k/uL (3.8-10.6)
[2022-11-16 12:18] LABS: ALT 37 U/L (4-49); AST 27 U/L (17-59); African American GFR (CKD) >90 (>60 ml/min/1.73 sqM); Albumin 3.6 g/dL (3.5-5.0); Albumin/Globulin Ratio 0.9; Alkaline Phosphatase 66 U/L (38-126); Anion Gap 7 mmol/L; Blood Urea Nitrogen 19 mg/dL (9-20); Calcium 8.4 mg/dL (8.4-10.2); Carbon Dioxide 26 mmol/L (22-30); Chloride 102 mmol/L (98-107); Globulin 3.8 g/dL; Glucose 379 mg/dL (74-99); Non-African American GFR(CKD) >90 (>60 ml/min/1.73 sqM); Potassium 4.5 mmol/L (3.5-5.1); Sodium 135 mmol/L (137-145); Total Bilirubin 0.3 mg/dL (0.2-1.3); Total Protein 7.4 g/dL (6.3-8.2)
--- NOTE | 2022-11-16 14:12 | P.PN ---
Subjective Progress Note Date: 11/23/22 67-year-old gentleman with past medical history significant for optional to sleep apnea, asthma, previous history of COVID-19, history of atrial fibrillation anticoagulated with laser alto, presented to the emergency department with complaints of shortness of breath ongoing for the last 2-3 months. Patient states for the last few days he was noticed to have chest pain and hemoptysis the chest pain was pleuritic and worse with deep breathing. * At the time of evaluation in ER patient had a chest x-ray done which showed right upper lobe infiltrate. Patient was noted to have a low d-dimer. Hence clinical suspicion for pulmonary embolism was low. Patient was negative for influenza and RSV. Troponin of pain was negative. N-terminal proBNP 532. * Patient had a follow-up CT chest on 11/15 which showed virtual consolidation no pulmonary embolism was noted * Patient admitted for management of superimposed acute pneumonia with a history of COVID-19 11/16. Patient seen and examined. Not requiring any oxygen. Still having hemoptysis. States gets short of breath on exertion REVIEW OF SYSTEMS: CONSTITUTIONAL: No fever, no malaise,. CARDIOVASCULAR: No chest pain, no palpitations, no syncope. PULMONARY: As mentioned in HPI GASTROINTESTINAL: No diarrhea, no nausea, no vomiting, no abdominal pain. NEUROLOGICAL: No headaches, no weakness, PHYSICAL EXAMINATION: GENERAL: The patient is alert and oriented x3, not in any acute distress. Well developed, well nourished. HEENT: Pupils are round and equally reacting to light. EOMI. No scleral icterus. No conjunctival pallor. Normocephalic, atraumatic. No pharyngeal erythema. No thyromegaly. CARDIOVASCULAR: S1 and S2 present. No murmurs, rubs, or gallops. PULMONARY: Chest is clear to auscultation, no wheezing or crackles. ABDOMEN: Soft, nontender, nondistended, normoactive bowel sounds. No palpable organomegaly. MUSCULOSKELETAL: No joint swelling or deformity. EXTREMITIES: No cyanosis, clubbing, or pedal edema. NEUROLOGICAL: Gross neurological examination did not reveal any focal deficits. SKIN: No rashes. Assessment and plan * Superimposed right upper lobe pneumonia with history of COVID-19 * recurrent hemoptysis * Moderate persistent asthma with acute exacerbation * History of atrial fibrillation rate controlled * Obstructive sleep apnea * Morbid obesity Plan * Monitor vital signs * Monitor CBC * Monitor CMP * Continue telemetry monitoring * Continue Rocephin and azithromycin * For recurrent hemoptysis continue to hold Xarelto * Continue breathing treatment * Pulmonary ON BOARD Objective - Vital Signs Vital signs: Vital Signs Temp 97.6 F 11/16/22 07:36 Pulse 68 11/16/22 07:36 Resp 18 11/16/22 07:36 BP 149/99 11/16/22 07:36 Pulse Ox 94 L 11/16/22 08:58 FiO2 Intake & Output 11/15/22 11/16/22 11/16/22 18:59 06:59 18:59 Intake Total 650 Balance 650 Intake: Intake, IV Titration 650 Amount Sodium Chloride 0.9% 1, 600 000 ml @ 100 mls/hr IV . Q10H [facility] Rx#:[id number] cefTRIAXone 2 gm In 50 Sodium Chloride 0.9% 50 ml @ 100 mls/hr IVPB Q24HR [facility] Rx#:[id number] Other: Voiding Method Toilet # Voids 5 3 - Labs CBC & Chem 7: 11/16/22 11:07 11/16/22 11:07 Labs: Abnormal Lab Results - Last 24 Hours (Table) 11/15/22 Range/Units 06:50 C-Reactive Protein 23.2 H (<1.0) mg/dL Microbiology - Last 24 Hours (Table) 11/14/22 17:50 Blood Culture - Preliminary Blood No Growth after 24 hours 11/14/22 18:05 Blood Culture - Preliminary Blood No Growth after 24 hours
[2022-11-16] MEDS ORDERED: DEXTROSE 50% SYRINGE 50 ML IVP PRN ×2 (15:55)
[2022-11-16 16:26] LABS: Glucose,Whole Blood 499 mg/dL (70-110)
[2022-11-16] MEDS: INSULIN ASPART (NovoLOG) 100 UNIT/ML VIAL SQ SCH ×2 (17:19→20:54)
[2022-11-16] MEDS: AZITHROMYCIN 500 MG TAB PO SCH (17:19)
[2022-11-16] MEDS ORDERED: RIVAROXABAN 20 MG TAB PO SCH (17:30)
[2022-11-16 20:14] LABS: Glucose,Whole Blood 396 mg/dL (70-110)
[2022-11-16] MEDS: MONTELUKAST 10 MG TAB PO SCH (20:53)
[2022-11-17 06:44] LABS: Glucose,Whole Blood 298 mg/dL (70-110)
[2022-11-17] MEDS: INSULIN ASPART (NovoLOG) 100 UNIT/ML VIAL SQ SCH ×2 (06:46→12:41)
[2022-11-17] MEDS ORDERED: AMOXIC-POT CLAV 875-125MG 1 EACH TAB PO SCH (09:15)
[2022-11-17] MEDS ORDERED: methylPREDNISolone 4 MG TAB TAPER PO SCH (09:15)
[2022-11-17] MEDS: lamoTRIgine 100 MG TAB PO SCH (09:16)
[2022-11-17] MEDS: ZINC SULFATE 220 MG CAP PO SCH (09:16)
[2022-11-17] MEDS: VENLAFAXINE HCL ER 150 MG CAP PO SCH (09:16)
[2022-11-17] MEDS: ASCORBIC ACID 500 MG TAB PO SCH (09:16)
[2022-11-17] MEDS: methylPREDNISolone SOD SUCCI 40 MG/ML 1 ML VIAL IV SCH (09:17)
[2022-11-17] MEDS: FUROSEMIDE 80 MG TAB PO SCH (09:17)
[2022-11-17] MEDS: FLUTICASONE 50MCG/SPRAY NASAL 16GM EA NOSTRIL SCH (09:17)
[2022-11-17] MEDS: ALBUTEROL HFA INHALER INHALATION SCH ×2 (09:54→12:55)
[2022-11-17] MEDS: SYMBICORT 160-4.5 MCG INHALER INHALATION SCH (09:54)
[2022-11-17 11:56] LABS: Glucose,Whole Blood 358 mg/dL (70-110)
--- NOTE | 2022-11-17 13:21 | P.PN ---
Subjective Progress Note Date: 11/17/22 I'm seeing this patient in new consultation today 11/15/2022 for COVID-19 pneumonia with possible superimposed bacterial infection. Patient is a 67-year-old white male with past medical history of moderate persistent asthma, obstructive sleep apnea normally maintained on CPAP with pressures of 18 cm of w ater, previous COVID-19 pneumonia, obesity, atrial fibrillation anticoagulated on Xarelto, he does have a significant past history of smoking quitting 12 years ago. Patient does follow with Dr. Walton in the office. Patient came into the emergency room yesterday reporting progressive shortness of breath over the last 3 months and some nonradiating right-sided chest pain with hemoptysis starting approximately a day ago. The chest pain is worse with coughing and deep breathing. Patient has associated chills. Patient did have a similar presentation back in January 2021. Patient is currently resting in bed, on room air, in no acute distress. Patient's chest x-ray on arrival showed a right u pper lobe infiltrate and patchy density of the right medial lung base. Patient did test positive for COVID-19. He is not vaccinated for COVID-19. Most recent CBC shows some leukocytosis with a WBC count of 19.5, hemoglobin 15.7, hematocrit 46.7, platelets 229,000. D-dimer was low at 0.3, and the patient was anticoagulated on arrival. Clinical suspicion of pulmonary embolism is low. Coagulation profile was within normal limits. BMP was essentially normal with the exception of an elevated blood glucose of 183. Troponins negative 1. NT proBNP was low at 532. Patient was negative for influenza and RSV. Currently receiving antibiotics for possible superimposed community associated pneumonia. Procalcitonin level is pending. Vital signs are stable at this time. The patient is seen today 11/16/2022 in follow-up on the regular medical floor. He is currently sitting up in a chair at the bedside. Awake alert no acute distress. Currently maintaining good O2 saturations in the 90s on room air. Afebrile. Hemodynamically stable. He is feeling better today compared to yesterday. Pro-calcitonin 0.20. Legionella screen negative. He is continued on Rocephin and azithromycin. Computed tomography scan of the chest revealed few wedge-shaped regions of consolidation within the right upper lobe and right middle lobe favored to represent multifocal pneumonia. Not consistent with COVID-19 pneumonia. Right hilar adenopathy likely reactive. Blood cultures reveal no growth. He is continued on Symbicort, albuterol, IV Solu-Medrol. Vitamin supplements. No further episodes of hemoptysis. Xarelto to be resumed. The patient is seen today 11/17/2022 in follow-up on the regular medical floor. He is awake and alert in no acute distress. Sitting up in a chair at the bedside. Improved and on room air. No worsening shortness of breath, cough or congestion. No further hemoptysis. He has been restarted on his Xarelto. Continued on Symbicort and albuterol. Remains on vitamin supplements. Antibiotics in the form of ceftriaxone. Blood cultures revealed no growth. Bl ood sugar 298. Hemoglobin A1c 8.7. Objective - Vital Signs Vital signs: Vital Signs Temp 97.5 F L 11/17/22 07:18 Pulse 59 L 11/17/22 07:18 Resp 18 11/17/22 11:59 BP 121/71 11/17/22 07:18 Pulse Ox 94 L 11/17/22 07:18 FiO2 Intake & Output 11/16/22 11/17/22 11/17/22 18:59 06:59 18:59 Other: # Voids 2 1 - Exam GENERAL EXAM: Alert, 67-year-old morbidly obese male, up in a chair, on room air, comfortable in no apparent distress. HEAD: Normocephalic and atraumatic EYES: Normal reaction of pupils, equal size. NOSE: Clear with pink turbinates. THROAT: No erythema or exudates. NECK: No masses, no JVD. CHEST: No chest wall deformity. LUNGS: Equal air entry with scattered rhonchi throughout and focal dullness of the right upper lobe. no crackles, wheeze. No conversational dyspnea or accessory muscle use.. CVS: S1 and S2 normal with soft grade 2 systolic murmur heard best at the left sternal border, irregular rhythm of 68 bpm. No other extra heart sounds ABDOMEN: Obese abdomen, No hepatosplenomegaly, active bowel sounds, no guarding or rigidity. SPINE: No scoliosis or deformity SKIN: No rashes CENTRAL NERVOUS SYSTEM: No focal deficits, tone is normal in all 4 extremities. EXTREMITIES: There is mild bilateral lower extremity nonpitting edema, clubbing, or cyanosis. Peripheral pulses are intact. - Labs CBC & Chem 7: 11/16/22 11:07 11/16/22 11:07 Labs: Abnormal Lab Results - Last 24 Hours (Table) 11/16/22 11/16/22 11/17/22 Range/Units 16:24 20:12 06:43 POC Glucose (mg/dL) 499 H 396 H 298 H (70-110) mg/dL Hemoglobin A1c (0.0-6.0) % 11/17/22 11/17/22 Range/Units 06:52 11:52 POC Glucose (mg/dL) 358 H (70-110) mg/dL Hemoglobin A1c 8.7 H (0.0-6.0) % Microbiology - Last 24 Hours (Table) 11/14/22 17:50 Blood Culture - Preliminary Blood No Growth after 48 hours 11/14/22 18:05 Blood Culture - Preliminary Blood No Growth after 48 hours Assessment and Plan Assessment: COVID-19 pneumonia with possible superimposed bacterial infection. Pro- calcitonin 0.20. Continued on Rocephin and completed azithromycin. Patient has been experiencing symptoms over the last couple months, with recent worsening in symptoms. Currently on room air. Not a candidate for antiviral therapy. Recurrent hemoptysis, resolved Chest pain, ischemia has been ruled out Moderate persistent asthma Obstructive sleep apnea normally maintained on a CPAP with pressure settings of 18 cm H2O Morbid obesity Hypertension Atrial fibrillation with controlled ventricular rate, anticoagulated on Xarelto Ex-smoker, quitting 12 years ago. Patient does have significant smoking history of approximately 90 pack years. Diabetes mellitus, hemoglobin A1c 8.7 Plan: The patient was seen and evaluated Medications and labs reviewed Stable and on room air Discontinue ceftriaxone Augmentin 5 more days Cleared for discharge from the pulmonary standpoint Follow-up in the office in 1 week I have personally seen and examined the patient, performed the documentation and the assessment and plan as written. Number of minutes spent on the visit: 10.
--- NOTE | 2022-11-17 13:31 | P.DS ---
Providers Date of admission: 11/14/22 18:27 Expected date of discharge: 11/17/22 Attending physician: Carroll Espino Consults: 11/14/22 18:27 Consult Physician Routine Consulting Provider: Jay Horan Consult Reason/Comments: Pneumonia, COVID-19, evaluate for dual diagnosis Do you want consulting provider notified?: Yes Primary care physician: Debra Ogden MD Hospital Course: Discharge diagnoses; Superimposed right upper lobe pneumonia with history of COVID-19 * recurrent hemoptysis * Moderate persistent asthma with acute exacerbation * History of atrial fibrillation rate controlled * Obstructive sleep apnea * Morbid obesity * Chest pain resolved Hospital course; 67-year-old gentleman with past medical history significant for optional to sleep apnea, asthma, previous history of COVID-19, history of atrial fibrillation anticoagulated with laser alto, presented to the emergency department with complaints of shortness of breath ongoing for the last 2-3 months. Patient states for the last few days he was noticed to have chest pain and hemoptysis the chest pain was pleuritic and worse with deep breathing. * At the time of evaluation in ER patient had a chest x-ray done which showed right upper lobe infiltrate. Patient was noted to have a low d-dimer. Hence clinical suspicion for pulmonary embolism was low. Patient was negative for influenza and RSV. Troponin of pain was negative. N-terminal proBNP 532. * Patient had a follow-up CT chest on 11/15 which showed virtual consolidation no pulmonary embolism was noted * Patient admitted for management of superimposed acute pneumonia with a history of COVID-19 11/16. Patient seen and examined. Not requiring any oxygen. Still having hemoptysis. States gets short of breath on exertion 11/17. Patient seen and examined. Hemoptysis improving. Denies any chest pain at rest, denies any shortness of breath at rest. Being discharged on oral Augmentin for 5 more days and Medrol Dosepak PHYSICAL EXAMINATION: GENERAL: The patient is alert and oriented x3, not in any acute distress. Well developed, well nourished. HEENT: Pupils are round and equally reacting to light. EOMI. No scleral icterus. No conjunctival pallor. Normocephalic, atraumatic. No pharyngeal erythema. No thyromegaly. CARDIOVASCULAR: S1 and S2 present. No murmurs, rubs, or gallops. PULMONARY: Chest is clear to auscultation, no wheezing or crackles. ABDOMEN: Soft, nontender, nondistended, normoactive bowel sounds. No palpable organomegaly. MUSCULOSKELETAL: No joint swelling or deformity. EXTREMITIES: No cyanosis, clubbing, or pedal edema. NEUROLOGICAL: Gross neurological examination did not reveal any focal deficits. SKIN: No rashes. Patient Condition at Discharge: Serious Plan - Discharge Summary Discharge Rx Participant: No New Discharge Prescriptions: New Amoxic-Pot Clav 875-125Mg [Augmentin 875-125] 1 each PO Q12HR 5 Days #10 tab methylPREDNISolone Dose Pack [Medrol Dose Pack] 4 mg PO DIRECTED #1 packet Continue Albuterol Sulfate [Proair Hfa] 2 puff INHALATION RT-QID PRN PRN Reason: Shortness Of Breath Venlafaxine HCl [Effexor XR] 150 mg PO DAILY Fluticasone Nasal [place] [Flonase Nasal [place]] 2 spray EA NOSTRIL DAILY Testosterone Cypionate [Depo-Testosterone] 200 mg IM Q14D Losartan Potassium [Cozaar] 100 mg PO DAILY Furosemide [Lasix] 80 mg PO DAILY Montelukast [Singulair] 10 mg PO HS Rivaroxaban [Xarelto] 20 mg PO W/SUPPER Budesonide-Formot 160-4.5 Mcg [Symbicort 160-4.5 Mcg Inhaler] 2 puff INHALATION RT-BID lamoTRIgine [LaMICtal] 100 mg PO BID Discharge Medication List Montelukast [Singulair] 10 mg PO HS 11/04/20 [History] Albuterol Sulfate [Proair Hfa] 2 puff INHALATION RT-QID PRN 01/22/21 [History] Rivaroxaban [Xarelto] 20 mg PO W/SUPPER 12/19/21 [History] Budesonide-Formot 160-4.5 Mcg [Symbicort 160-4.5 Mcg Inhaler] 2 puff INHALATION RT-BID 02/03/22 [History] Fluticasone Nasal [place] [Flonase Nasal [place]] 2 spray EA NOSTRIL DAILY 06/26/22 [History] Venlafaxine HCl [Effexor XR] 150 mg PO DAILY 06/26/22 [History] lamoTRIgine [LaMICtal] 100 mg PO BID 06/26/22 [History] Furosemide [Lasix] 80 mg PO DAILY 11/14/22 [History] Losartan Potassium [Cozaar] 100 mg PO DAILY 11/14/22 [History] Testosterone Cypionate [Depo-Testosterone] 200 mg IM Q14D 11/14/22 [History] Amoxic-Pot Clav 875-125Mg [Augmentin 875-125] 1 each PO Q12HR 5 Days #10 tab 11/17/22 [Rx] methylPREDNISolone Dose Pack [Medrol Dose Pack] 4 mg PO DIRECTED #1 packet 11/17/22 [Rx] Follow up Appointment(s)/Referral(s): Debra Ogden MD [Primary Care Provider] - 1-2 days Jay Horan DO [Doctor of Osteopathic Medicine] - 1 Week Discharge Disposition: HOME SELF-CARE
[2022-11-17 15:10] LABS: Basophils # (A) 0.02 X 10*3/uL (0.00-0.10); Basophils % (A) 0.1 %; Eosinophils # (A) 0 X 10*3/uL (0.04-0.35); Eosinophils % (A) 0 %; HCT 46.9 % (39.6-50.0); HGB 15.3 g/dL (13.0-17.0); Immature Grans, Automated 0.4 %; Lymphocytes # (A) 1.36 X 10*3/uL (0.90-5.00); Lymphocytes % (A) 9.6 %; MCH 32.1 pg (27.0-32.0); MCHC 32.6 g/dL (32.0-37.0); MCV 98.5 fL (80.0-97.0); Mean Platelet Volume 10.8 fL (9.5-12.2); Monocytes % (A) 4.2 %; NRBC Per 100 WBC 0 /100 WBCS (0.0-0.0); Neutrophils % (A) 85.7 %; Platelet Count 296 X 10*3/uL (140-440); RBC 4.76 X 10*6/uL (4.40-5.60); RDW 14.2 % (11.5-14.5); WBC 14.24 X 10*3/uL (4.50-10.00)
[2022-11-17 15:53] VITALS: BP 169/71; PULSE 81; RESP 19; TEMP 97.9
== END 2022-11-17 15:14 | disposition home or self-care (01) | DRG 177 ==
LOC: EC 14:40 → 4SSUR 18:27
PROVIDERS: ADMIT Internal Medicine; ATTEND Internal Medicine
DX: U07.1 COVID-19 (principal); J12.82 Pneumonia due to coronavirus disease 2019; J15.9 Unspecified bacterial pneumonia; J45.41 Moderate persistent asthma with (acute) exacerbation; Z68.43 Body mass index [BMI] 50.0-59.9, adult; I48.91 Unspecified atrial fibrillation; E66.01 Morbid (severe) obesity due to excess calories; G47.33 Obstructive sleep apnea (adult) (pediatric); Z87.891 Personal history of nicotine dependence; Z28.310 Unvaccinated for COVID-19; Z79.51 Long term (current) use of inhaled steroids; Z79.899 Other long term (current) drug therapy
CPT/HCPCS: 36415; 71046; 71260; 80048; 80053; 83036; 83605; 83735; 83880; 84145; 84484; 85025; 85027; 85379; 85610; 85730; 86140; 87040; 87449; 87636; 93005; 94640; 94760; 96365; 99291

== ENCOUNTER → 2022-12-25 | Outpatient (CLI) | payer MEDICARE ==
[2022-12-25 15:38] LABS: HCT 47.3 % (39.6-50.0); HGB 15.4 g/dL (13.0-17.0); MCHC 32.6 g/dL (32.0-37.0); MCV 98.1 fL (80.0-97.0); Mean Platelet Volume 10.8 fL (9.5-12.2); NRBC Per 100 WBC 0 /100 WBCS (0.0-0.0); Platelet Count 233 X 10*3/uL (140-440); RBC 4.82 X 10*6/uL (4.40-5.60); RDW 14.3 % (11.5-14.5); WBC 6.23 X 10*3/uL (4.50-10.00)
[2022-12-25 15:55] LABS: Prostate Specific Antigen 0.7 ng/mL (0.00-4.50)
== END | disposition home or self-care (01) ==
LOC: LABWHC1 09:30
PROVIDERS: ATTEND Internal Medicine Endocrinology, Diabetes & Metabolism
DX: E29.1 Testicular hypofunction (principal)
CPT/HCPCS: 36415; 84153; 84403; 85027

== ENCOUNTER 2023-09-24 08:44 | Inpatient (IN) | payer MEDICARE ==
[2023-09-24] MEDS ORDERED: MAGNESIUM SULFATE-D5W PMX 1 GM in DEXTROSE/WATER 1 100ML.BAG IVPB PRN (14:34)
[2023-09-24] MEDS ORDERED: Potassium Replacement Protocol 1 EACH MISC MISCELLANE PRN (14:34)
[2023-09-24] MEDS ORDERED: [UNRECOGNIZED DRUG - REMARK] PO PRN (14:34)
[2023-09-24] MEDS ORDERED: ALBUTEROL NEBULIZED 2.5 MG/3 ML INHALATION PRN (14:44)
[2023-09-24 15:03] LABS: Basophils # (A) 0.1 k/uL (0-0.2); Basophils % (A) 1 %; Eosinophils # (A) 0.3 k/uL (0-0.7); Eosinophils % (A) 3 %; HCT 44.7 % (39.0-53.0); HGB 14.2 gm/dL (13.0-17.5); Hypochromasia Slight; Lymphocytes # (A) 1.7 k/uL (1.0-4.8); Lymphocytes % (A) 23 %; MCH 31.5 pg (25.0-35.0); MCHC 31.8 g/dL (31.0-37.0); MCV 98.9 fL (80.0-100.0); Mean Platelet Volume 7.2; Monocytes # (A) 0.5 k/uL (0-1.0); Monocytes % (A) 7 %; Neutrophils # (A) 4.8 k/uL (1.3-7.7); Neutrophils % (A) 64 %; Platelet Count 257 k/uL (150-450); RBC 4.52 m/uL (4.30-5.90); RDW 14.5 % (11.5-15.5); WBC 7.6 k/uL (3.8-10.6)
[2023-09-24 15:12] LABS: INR 1.1 (<1.2); Prothrombin Time 11.5 sec (10.0-12.5)
[2023-09-24 15:21] LABS: African American GFR (CKD) >90 (>60 ml/min/1.73 sqM); Anion Gap 6 mmol/L; Blood Urea Nitrogen 13 mg/dL (9-20); Calcium 8.9 mg/dL (8.4-10.2); Carbon Dioxide 26 mmol/L (22-30); Chloride 108 mmol/L (98-107); Glucose 125 mg/dL (74-99); Non-African American GFR(CKD) 89 (>60 ml/min/1.73 sqM); Potassium 4.2 mmol/L (3.5-5.1); Sodium 140 mmol/L (137-145)
--- NOTE | 2023-09-24 15:24 | XR ---
EXAMINATION TYPE: XR chest 2V DATE OF EXAM: 09/24/2023 COMPARISON: 11/15/2022 HISTORY: 68-year-old male Tikosyn loading TECHNIQUE: PA and lateral views FINDINGS: Heart borderline to mildly enlarged. Interstitial density is unchanged. The previous right upper lobe opacity has resolved seen in 2022. No consolidation or pleural effusion. IMPRESSION: Borderline to mild cardiomegaly with chronic changes, possible mild pulmonary vascular congestion.
[2023-09-24] MEDS: SODIUM CHLORIDE 0.9% 1,000 ML IV SCH (16:10)
[2023-09-24 16:15] LABS: Glucose,Whole Blood 106 mg/dL (70-110)
[2023-09-24] MEDS: DOFETILIDE 250 MCG CAP PO ONE (17:46)
[2023-09-24] MEDS: RIVAROXABAN 20 MG TAB PO SCH (17:46)
--- NOTE | 2023-09-24 18:25 | P.HPCAR ---
History of Present Illness This is Dr. Riddle dictating an H/P on this patient The patient was interviewed and examined IMPRESSION / ASSESSMENT: Persistent symptomatic atrial fibrillation with shortness of breath and diastolic congestive heart failure Failed amiodarone and A-fib ablation Symptomatic despite adequate rate control Morbid obesity BMI 50 Chronic diastolic congestive heart failure Hypertension Normal renal function, normal potassium normal magnesium and baseline absolute QT interval of less than 410 ms PLAN: Initiate dofetilide this evening 250 mcg twice daily and monitor QT interval, daily BMP with magnesium transfer tech Likely electrical cardioversion on Sunday Add Farxiga 10 mg p.o. daily for diastolic congestive heart failure, add spironolactone 25 mg p.o. daily Lasix has been discontinued Venlafaxine has been discontinued prior to admission Continue anticoagulation with Xarelto 20 mg p.o. daily Continue diabetes medications Continue antihypertensive therapy with losartan 100 mg daily Hemoglobin A1c and lipid panel Initiate statins for cardiovascular risk reduction Oral magnesium added HPI Patient remains short of breath on exertion with tiredness and fatigue despite adequate rate control of atrial fibrillation He has failed amiodarone and has failed PVI He has symptoms of chronic diastolic heart failure History of hypertension and diabetes type 2 ROS: No fever chills or rigors, no cough, phlegm or expectoration, no nausea, vomiting or diarrhea, no hematuria, dysuria, no musculoskeletal complaints, no strokes or seizures, no skin lesions. EXAMINATION: Pulse rate irregular 64 beats a minute afebrile Blood pressure 149/75 mmHg Oxygen saturation 95% Increased BMI Trace bilateral lower extremity edema Heart sounds are irregular no murmurs or gallop or rub Clear lungs no rhonchi no crackles REVIEW OF LABS, ECG & MEDICAL DATA Normal white count Normal hemoglobin of 14.2 Normal platelet count Electrolytes are normal BUN 13 and creatinine 0.9 normal GFR TSH 1.9 Glucose level elevated normal calcium Physical Exam Vitals: Vital Signs Temp Pulse Resp BP Pulse Ox 09/24/23 14:27 98 F 64 17 149/75 95 Intake and Output 09/24/23 09/24/23 09/24/23 06:59 14:59 22:59 Intake Total 10 Balance 10 Intake: IV 10 Invasive Line 1 10 Other: Voiding Method Toilet Weight 172.365 kg Past Medical History Past Medical History: Atrial Fibrillation, Asthma, Hypertension, Osteoarthritis (OA), Sleep Apnea/CPAP/BIPAP Additional Past Medical History / Comment(s): HAS A C PAP MACHINE History of Any Multi-Drug Resistant Organisms: None Reported Past Surgical History: Cardiac Ablation, Hernia Repair, Orthopedic Surgery Additional Past Surgical History / Comment(s): ARTHROSCOPIC R knee, sinus x 2, LT CATARACT SX, COLONOSCOPY, Past Anesthesia/Blood Transfusion Reactions: No Reported Reaction Past Psychological History: No Psychological Hx Reported Smoking Status: Former smoker Past Alcohol Use History: None Reported Additional Past Alcohol Use History / Comment(s): STARTED SMOKING AT AGE 15 QUIT SMOKING -2006 SMOKED 3 PPD Past Drug Use History: None Reported - Past Family History Mother Family Medical History: No Reported History Brother(s) Family Medical History: Cancer Physical Examination Vital Signs Temp Pulse Resp BP Pulse Ox 09/24/23 14:27 98 F 64 17 149/75 95 Intake and Output 09/24/23 09/24/23 09/24/23 06:59 14:59 22:59 Intake Total 10 Balance 10 Intake: IV 10 Invasive Line 1 10 Other: Voiding Method Toilet Weight 172.365 kg Results 09/24/23 14:50 09/24/23 14:50 Coagulation 09/24/23 Range/Units 14:50 PT 11.5 (10.0-12.5) sec CBC 09/24/23 Range/Units 14:50 WBC 7.6 (3.8-10.6) k/uL RBC 4.52 (4.30-5.90) m/uL Hgb 14.2 (13.0-17.5) gm/dL Hct 44.7 (39.0-53.0) % Plt Count 257 (150-450) k/uL Comprehensive Metabolic Panel 09/24/23 Range/Units 14:50 Sodium 140 (137-145) mmol/L Potassium 4.2 (3.5-5.1) mmol/L Chloride 108 H (98-107) mmol/L Carbon Dioxide 26 (22-30) mmol/L BUN 13 (9-20) mg/dL Creatinine 0.88 (0.66-1.25) mg/dL Glucose 125 H (74-99) mg/dL Calcium 8.9 (8.4-10.2) mg/dL Current Medications Generic Name Dose Route Start Last Admin Trade Name Freq PRN Reason Stop Dose Admin Albuterol Sulfate 2.5 mg 09/24/23 14:44 Albuterol Nebulized 2.5 Mg/3 Ml INHALATION RT-QID PRN Shortness Of Breath Budesonide/Formoterol Fumarate 2 puff 09/24/23 20:00 Symbicort 160-4.5 Mcg Inhaler INHALATION RT-BID [facility] Dapagliflozin 10 mg 09/25/23 09:00 Dapagliflozin Propanediol 10 Mg Tablet PO DAILY [facility] Fluticasone Propionate 2 spray 09/25/23 09:00 Fluticasone 50mcg/[place] Nasal 16gm EA NOSTRIL DAILY [facility] Magnesium Sulfate/Dextrose 1 100 mls @ 200 mls/hr 09/24/23 14:34 gm/ IV Solution IVPB 10/04/23 23:00 Q1HR PRN Per Protocol Lamotrigine 100 mg 09/24/23 21:00 Lamotrigine 100 Mg Tab PO BID [facility] Linagliptin 5 mg 09/25/23 09:00 Linagliptin 5 Mg Tablet PO DAILY [facility] Losartan Potassium 100 mg 09/25/23 09:00 Losartan 50 Mg Tab PO DAILY [facility] Magnesium Oxide 400 mg 09/25/23 09:00 Magnesium Oxide 400 Mg Tab PO DAILY [facility] Metformin HCl 500 mg 09/24/23 21:00 Metformin 500 Mg Tab PO BID [facility] Miscellaneous Information 1 each 09/24/23 14:34 Potassium Replacement Protocol 1 Each Misc MISCELLANE DAILY PRN Per Protocol Protocol Miscellaneous Information 1 each 09/24/23 14:34 Tikosyn Interaction Info!!!!!! PO ONCE PRN See Comments Rivaroxaban 20 mg 09/24/23 17:30 09/24/23 17:46 Rivaroxaban 20 Mg Tab PO 20 mg W/SUPPER KYLE Administration Protocol Spironolactone 25 mg 09/25/23 09:00 Spironolactone 25 Mg Tab PO DAILY [facility] Intake and Output 09/24/23 09/24/23 09/24/23 06:59 14:59 22:59 Intake Total 10 Balance 10 Intake: IV 10 Invasive Line 1 10 Other: Voiding Method Toilet Weight 172.365 kg Patient Weight 09/25/23 06:59 Weight 172.365 kg 09/24/23 14:50 09/24/23 14:50
[2023-09-24 20:23] LABS: Glucose,Whole Blood 146 mg/dL (70-110)
[2023-09-24] MEDS: lamoTRIgine 100 MG TAB PO SCH (20:27)
[2023-09-24] MEDS: metFORMIN 500 MG TAB PO SCH (20:27)
[2023-09-24] MEDS: SYMBICORT 160-4.5 MCG INHALER INHALATION SCH (20:47)
[2023-09-24] MEDS ORDERED: NON FORMULARY DRUG (Metformin Hcl Er 500 MG Tab.Er.24h) PO SCH (21:00)
[2023-09-24] MEDS: VALSARTAN 160 MG TAB PO SCH (22:24)
[2023-09-25 06:04] LABS: Glucose,Whole Blood 125 mg/dL (70-110)
[2023-09-25] MEDS: DOFETILIDE 250 MCG CAP PO ONE ×2 (06:30→17:46)
[2023-09-25] MEDS: MAGNESIUM OXIDE 400 MG TAB PO SCH (08:14)
[2023-09-25] MEDS: LINAGLIPTIN 5 MG TABLET PO SCH (08:14)
[2023-09-25] MEDS: SPIRONOLACTONE 25 MG TAB PO SCH (08:14)
[2023-09-25] MEDS: DAPAGLIFLOZIN PROPANEDIOL 10 MG TABLET PO SCH (08:14)
[2023-09-25] MEDS: FLUTICASONE 50MCG/SPRAY NASAL 16GM EA NOSTRIL SCH (08:15)
[2023-09-25] MEDS ORDERED: LOSARTAN 50 MG TAB PO SCH (09:00)
[2023-09-25] MEDS ORDERED: DAPAGLIFLOZIN PROPANEDIOL 5 MG TABLET PO SCH (09:00)
[2023-09-25] MEDS: ACETAMINOPHEN TAB 325 MG TAB PO PRN (09:15)
--- NOTE | 2023-09-25 12:08 | P.PN ---
Subjective HISTORY OF PRESENT ILLNESS: This is a 68-year-old male who was admitted to the hospital for initiation of dofetilide treatment. Patient examined this morning at the bedside. He denies chest pain or pressure. He denies shortness of breath. He denies any adverse side effects to dofetilide. Absolute QT this morning is less than 440. PHYSICAL EXAM: VITAL SIGNS: Reviewed. GENERAL: Well-developed in no acute distress. NECK: Supple. No JVD or thyromegaly LUNGS: Respirations even and unlabored. Lungs essentially clear to auscultation bilaterally. HEART: Irregular rate and rhythm. S1 and S2 heard. EXTREMITIES: Normal range of motion. No clubbing or cyanosis. Peripheral pulses intact. No lower extremity edema ASSESSMENT: Persistent symptomatic atrial fibrillation with shortness of breath and diastolic congestive heart failure Failed amiodarone and A-fib ablation Symptomatic despite adequate rate control Morbid obesity BMI 50 Chronic diastolic congestive heart failure Hypertension Normal renal function, normal potassium normal magnesium and baseline absolute QT interval of less than 410 ms PLAN: Continue dofetilide 250 mcg twice daily Continue telemetry monitoring Continue to monitor daily BMP and magnesium Likely electrical cardioversion on Sunday morning Discontinue Lamictal as patient states he is no longer taking this Okay to continue metformin per Dr. Mcclure. However, do not increase metformin dose. Further recommendations pending patient course Nurse practitioner note has been reviewed by physician. Signing provider agrees with the documented findings, assessment, and plan of care documented by RATINGS ANALYST as a scribe. Objective - Vital Signs Vital signs: Vital Signs Temp 98.5 F 09/25/23 08:00 Pulse 58 L 09/25/23 08:00 Resp 17 09/25/23 08:00 BP 156/87 09/25/23 08:00 Pulse Ox 93 L 09/25/23 08:00 FiO2 Intake & Output 09/24/23 09/25/23 09/25/23 18:59 06:59 18:59 Intake Total 250 20 118 Balance 250 20 118 Weight 172.365 kg Intake: IV 10 20 Invasive Line 1 10 20 Oral 240 118 Other: Voiding Method Toilet Toilet Toilet # Voids 1 - Labs CBC & Chem 7: 09/24/23 14:50 09/24/23 14:50 Labs: Abnormal Lab Results - Last 24 Hours (Table) 09/24/23 09/24/2309/25/24 Range/Units 14:50 20:13 05:52 Chloride 108 H (98-107) mmol/L Glucose 125 H (74-99) mg/dL POC Glucose (mg/dL) 146 H 125 H (70-110) mg/dL
[2023-09-25 12:11] LABS: Glucose,Whole Blood 101 mg/dL (70-110)
[2023-09-25 12:25] LABS: African American GFR (CKD) >90 (>60 ml/min/1.73 sqM); Anion Gap 8 mmol/L; Blood Urea Nitrogen 13 mg/dL (9-20); Carbon Dioxide 24 mmol/L (22-30); Chloride 107 mmol/L (98-107); Glucose 137 mg/dL (74-99); Magnesium 2.1 mg/dL (1.6-2.3); Non-African American GFR(CKD) >90 (>60 ml/min/1.73 sqM); Potassium 4.3 mmol/L (3.5-5.1); Sodium 139 mmol/L (137-145)
[2023-09-25 16:42] LABS: Glucose,Whole Blood 105 mg/dL (70-110)
[2023-09-25 16:56] LABS: Chol/HDL Ratio 3.56 Ratio; LDL Cholesterol,Calculated 71.4 mg/dL (0.0-131.0)
[2023-09-25 20:06] LABS: Glucose,Whole Blood 97 mg/dL (70-110)
[2023-09-26] MEDS: DOFETILIDE 250 MCG CAP PO ONE ×2 (06:00→17:40)
[2023-09-26 06:12] LABS: Glucose,Whole Blood 126 mg/dL (70-110)
[2023-09-26] MEDS ORDERED: PROPOFOL 10 MG/ML 20 ML VIAL IV ONE (09:46)
[2023-09-26] MEDS: LACTATED RINGERS 1,000 ML IV ONE (09:55)
--- NOTE | 2023-09-26 10:12 | P.EPPROC ---
- EP Procedure Note Electrophysiology Procedure Note: Diagnosis Persistent atrial fibrillation, symptomatic, despite adequate rate control Dofetilide 250 mcg twice daily initiated in the hospital Minimal organization of fibrillatory activity on twelve-lead EKG Preprocedure absolute QT interval of 440 ms Details of the procedure Successful electrical cardioversion with a single 200 J biphasic shock in the AP configuration to sinus rhythm Heart rates in the 60s in sinus rhythm Plan Twelve-lead EKG to measure QT interval in sinus rhythm today Follow BMP and magnesium level Continue dofetilide monitoring Education sheet provided to the patient
[2023-09-26 10:50] LABS: African American GFR (CKD) >90 (>60 ml/min/1.73 sqM); Anion Gap 8 mmol/L; Blood Urea Nitrogen 13 mg/dL (9-20); Calcium 9.5 mg/dL (8.4-10.2); Carbon Dioxide 23 mmol/L (22-30); Chloride 109 mmol/L (98-107); Glucose 121 mg/dL (74-99); Magnesium 2.2 mg/dL (1.6-2.3); Non-African American GFR(CKD) 89 (>60 ml/min/1.73 sqM); Potassium 4.6 mmol/L (3.5-5.1); Sodium 140 mmol/L (137-145)
[2023-09-26] MEDS: COLCHICINE 0.6 MG EACH PO SCH (11:21)
[2023-09-26 11:47] LABS: Glucose,Whole Blood 93 mg/dL (70-110)
[2023-09-26 16:28] LABS: Glucose,Whole Blood 84 mg/dL (70-110)
[2023-09-26 20:51] LABS: Glucose,Whole Blood 117 mg/dL (70-110)
[2023-09-27] MEDS: DOFETILIDE 250 MCG CAP PO ONE ×2 (06:02→18:03)
[2023-09-27 06:16] LABS: Glucose,Whole Blood 116 mg/dL (70-110)
[2023-09-27 10:11] LABS: African American GFR (CKD) >90 (>60 ml/min/1.73 sqM); Anion Gap 10 mmol/L; Blood Urea Nitrogen 17 mg/dL (9-20); Calcium 9.1 mg/dL (8.4-10.2); Carbon Dioxide 23 mmol/L (22-30); Chloride 106 mmol/L (98-107); Glucose 158 mg/dL (74-99); Magnesium 2.2 mg/dL (1.6-2.3); Non-African American GFR(CKD) 90 (>60 ml/min/1.73 sqM); Potassium 4.5 mmol/L (3.5-5.1); Sodium 139 mmol/L (137-145)
--- NOTE | 2023-09-27 11:19 | P.PN ---
Subjective HISTORY OF PRESENT ILLNESS: 09/26/2023 This is a 68-year-old male who was admitted to the hospital for initiation of dofetilide treatment. Patient examined this morning at the bedside. He denies chest pain or pressure. He denies shortness of breath. He denies any adverse side effects to dofetilide. Absolute QT this morning is less than 440. 09/27/2023 Patient examined this morning at the bedside. He is status post cardioversion yesterday with Dr. Riddle. He is maintaining sinus mechanism this morning. Patient has had a few 2-second pauses. He denies any dizziness or lightheadedness. Denies any chest pain or pressure. Denies any shortness of breath. Absolute QT this morning is 460. PHYSICAL EXAM: VITAL SIGNS: Reviewed. GENERAL: Well-developed in no acute distress. NECK: Supple. No JVD or thyromegaly LUNGS: Respirations even and unlabored. Lungs essentially clear to auscultation bilaterally. HEART: Regular rate and rhythm. S1 and S2 heard. EXTREMITIES: Normal range of motion. No clubbing or cyanosis. Peripheral pul ses intact. No lower extremity edema ASSESSMENT: Persistent symptomatic atrial fibrillation with shortness of breath and diastolic congestive heart failure Failed amiodarone and A-fib ablation Symptomatic despite adequate rate control Morbid obesity BMI 50 Chronic diastolic congestive heart failure Hypertension Normal renal function, normal potassium normal magnesium and baseline absolute QT interval of less than 410 ms PLAN: Continue dofetilide 250 mcg twice daily Continue telemetry monitoring Continue to monitor daily BMP and magnesium Okay to continue metformin per Dr. Riddle. However, do not increase metformin dose. Patient's initial absolute QT was 410. Absolute QT this morning 460. Patient with 12% increase in absolute QT which is nearing the maximum of 15% for dofetilide treatment. We will continue to monitor absolute QT. Possible decrease in dosage if patient's absolute QT increases Further recommendations pending patient course Nurse practitioner note has been reviewed by physician. Signing provider agrees with the documented findings, assessment, and plan of care documented by CLINICAL RESEARCH DIRECTOR as a scribe. Objective - Vital Signs Vital signs: Vital Signs Temp 97.4 F L 09/27/23 07:59 Pulse 65 09/27/23 08:10 Resp 18 09/27/23 08:10 BP 141/75 09/27/23 07:59 Pulse Ox 95 09/27/23 07:59 FiO2 Intake & Output 09/26/23 09/27/23 09/27/23 18:59 06:59 18:59 Intake Total 1520 180 Balance 1520 180 Weight 166.3 kg Intake: IV 100 Oral 1420 180 Other: Voiding Method Toilet Toilet Toilet # Voids 1 1 # Bowel Movements 1 - Labs CBC & Chem 7: 09/24/23 14:50 09/27/23 08:50 Labs: Abnormal Lab Results - Last 24 Hours (Table) 09/26/23 09/27/23 09/27/23 Range/Units 20:48 06:14 08:50 Glucose 158 H (74-99) mg/dL POC Glucose (mg/dL) 117 H 116 H (70-110) mg/dL
[2023-09-27 11:30] LABS: Glucose,Whole Blood 92 mg/dL (70-110)
[2023-09-27 16:38] LABS: Glucose,Whole Blood 97 mg/dL (70-110)
[2023-09-27 20:08] LABS: Glucose,Whole Blood 100 mg/dL (70-110)
[2023-09-28] MEDS: DOFETILIDE 250 MCG CAP PO ONE ×2 (06:03→17:49)
[2023-09-28 06:13] LABS: Glucose,Whole Blood 104 mg/dL (70-110)
[2023-09-28] MEDS: SPIRONOLACTONE 25 MG TAB PO SCH (08:20)
[2023-09-28 11:24] LABS: Glucose,Whole Blood 90 mg/dL (70-110)
--- NOTE | 2023-09-28 11:40 | P.PN ---
Subjective HISTORY OF PRESENT ILLNESS: 09/26/2023 This is a 68-year-old male who was admitted to the hospital for initiation of dofetilide treatment. Patient examined this morning at the bedside. He denies chest pain or pressure. He denies shortness of breath. He denies any adverse side effects to dofetilide. Absolute QT this morning is less than 440. 09/27/2023 Patient examined this morning at the bedside. He is status post cardioversion yesterday with Dr. Riddle. He is maintaining sinus mechanism this morning. Patient has had a few 2-second pauses. He denies any dizziness or lightheadedness. Denies any chest pain or pressure. Denies any shortness of breath. Absolute QT this morning is 460. 09/28/2023 Patient examined this morning at the bedside. He denies any chest pain or pressure. He denies any shortness of breath. He is maintaining sinus mechanism this morning. Patient did have a run of monomorphic nonsustained VT this mor valorie. Patient is also having intermittent episodes of second-degree heart block, type I. Patient's blood pressures remain elevated overnight with a blood pressure of 154/82. EKG reviewed this morning. Absolute QT is 440. PHYSICAL EXAM: VITAL SIGNS: Reviewed. GENERAL: Well-developed in no acute distress. NECK: Supple. No JVD or thyromegaly LUNGS: Respirations even and unlabored. Lungs essentially clear to auscultation bilaterally. HEART: Regular rate and rhythm. S1 and S2 heard. EXTREMITIES: Normal range of motion. No clubbing or cyanosis. Peripheral pulses intact. No lower extremity edema ASSESSMENT: Persistent symptomatic atrial fibrillation with shortness of breath and diastol ic congestive heart failure Failed amiodarone and A-fib ablation Symptomatic despite adequate rate control Morbid obesity BMI 50 Chronic diastolic congestive heart failure Hypertension Normal renal function, normal potassium normal magnesium and baseline absolute QT interval of less than 410 ms Intermittent second-degree heart block, type I PLAN: Continue dofetilide 250 mcg twice daily Daily EKG Continue telemetry monitoring Continue to monitor daily BMP and magnesium Okay to continue metformin per Dr. Riddle. However, do not increase metformin dose. Increase spironolactone to 50 mg daily If patient's blood pressures remain elevated, will consider transitioning to Entresto on an outpatient basis Continue to monitor patient for an additional 24 hours Anticipate discharge home tomorrow Nurse practitioner note has been reviewed by physician. Signing provider agrees with the documented findings, assessment, and plan of care documented by BODY MECHANIC APPRENTICE as a scribe. Objective - Vital Signs Vital signs: Vital Signs Temp 97.5 F L 09/28/23 08:14 Pulse 60 09/28/23 08:15 Resp 18 09/28/23 08:15 BP 138/71 09/28/23 08:14 Pulse Ox 95 09/28/23 08:14 FiO2 Intake & Output 09/27/23 09/28/23 09/28/23 18:59 06:59 18:59 Intake Total 1120 225 Balance 1120 225 Weight 165 kg Intake: Oral 1120 225 Other: Voiding Method Toilet Toilet Toilet # Voids 1 1 # Bowel Movements 1 - Labs CBC & Chem 7: 09/24/23 14:50 09/27/23 08:50
[2023-09-28 12:06] LABS: African American GFR (CKD) >90 (>60 ml/min/1.73 sqM); Anion Gap 10 mmol/L; Blood Urea Nitrogen 17 mg/dL (9-20); Calcium 9.5 mg/dL (8.4-10.2); Carbon Dioxide 24 mmol/L (22-30); Chloride 106 mmol/L (98-107); Glucose 90 mg/dL (74-99); Magnesium 2.3 mg/dL (1.6-2.3); Non-African American GFR(CKD) >90 (>60 ml/min/1.73 sqM); Potassium 4.6 mmol/L (3.5-5.1); Sodium 140 mmol/L (137-145)
[2023-09-28 16:28] LABS: Glucose,Whole Blood 116 mg/dL (70-110)
[2023-09-28 20:09] LABS: Glucose,Whole Blood 108 mg/dL (70-110)
[2023-09-29 06:08] LABS: Glucose,Whole Blood 113 mg/dL (70-110)
[2023-09-29] MEDS: DOFETILIDE 250 MCG CAP PO ONE (06:11)
[2023-09-29 09:03] LABS: African American GFR (CKD) >90 (>60 ml/min/1.73 sqM); Anion Gap 10 mmol/L; Blood Urea Nitrogen 21 mg/dL (9-20); Calcium 9.6 mg/dL (8.4-10.2); Carbon Dioxide 23 mmol/L (22-30); Chloride 107 mmol/L (98-107); Glucose 111 mg/dL (74-99); Non-African American GFR(CKD) 89 (>60 ml/min/1.73 sqM); Potassium 4.5 mmol/L (3.5-5.1); Sodium 140 mmol/L (137-145)
[2023-09-29 10:35] VITALS: BP 118/73; PULSE 60; RESP 16; TEMP 97.6
[2023-09-29 11:24] LABS: Glucose,Whole Blood 88 mg/dL (70-110)
--- NOTE | 2023-09-29 13:03 | P.DS ---
Providers Date of admission: 09/24/23 13:29 Attending physician: Elliot Riddle Primary care physician: Stated None Hospital Course: Patient is sitting comfortably in bed No chest discomfort dizziness or lightheadedness His gout symptoms are better on colchicine He has a first-degree AV block with mild bradycardia at night Occasional PVCs No nonsustained ventricular tachycardia overnight No advanced AV block while in sinus rhythm However his twelve-lead EKG today showed further prolongation of the QT interval on 250 mcg twice daily Now this is exceeded 15% from the baseline More importantly there was some prolongation of the QT interval seen intermittently on that twelve-lead EKG Therefore in view of further prolongation of the QT interval beyond 15% increase from baseline Sudden QT prolongation with slight fluctuations in heart rate First-degree AV block with AV node Wenckebach block during sinus rhythm Nonsustained monomorphic VT occasionally I decided to stop Tikosyn completely On examination blood pressures in the 140s Sinus mechanism Heart sounds are normal Breath sounds are clear No lower extremity edema Impression Persistent atrial fibrillation rate controlled but symptomatic with shortness of breath Patient states that he is less short of breath in sinus rhythm and is able to walk around the hallways better Hypertension not controlled on losartan Increased BMI morbid obesity BMI 47 Suggest Discontinue dofetilide Switch from losartan to valsartan 320 mg p.o. daily Start spironolactone 50 mg p.o. daily which was given in the hospital Discontinue testosterone Once the patient goes back into A-fib consider A-fib ablation but the overall success rates for the A-fib ablation would be low given the persistent nature and the fact that he has not responded to PVI He will need linear ablation of the left atrium if he would repeat his A-fib ablation Gradual weight loss Stop testosterone completely Follow-up with Dr. Gil in 3 weeks Plan - Discharge Summary Discharge Rx Participant: No New Discharge Prescriptions: New RX: Spironolactone 50 mg PO DAILY #90 tablet RX: Valsartan 320 mg PO DAILY #90 tab Discontinued RX: Testosterone Cypionate [Depo-Testosterone] 200 mg IM Q14D RX: Losartan Potassium [Cozaar] 100 mg PO DAILY No Action RX: Albuterol Sulfate [Proair Hfa] 2 puff INHALATION RT-QID PRN PRN Reason: Shortness Of Breath RX: Fluticasone Nasal [place] [Flonase Nasal [place]] 2 spr EA NOSTRIL DAILY sitaGLIPtin [Januvia] 25 mg PO DAILY RX: Rivaroxaban [Xarelto] 20 mg PO W/SUPPER RX: Budesonide-Formot 160-4.5 Mcg [Symbicort 160-4.5 Mcg Inhaler] 2 puff INHALATION RT-BID RX: metFORMIN HCL ER [Glucophage XR] 1,000 mg PO HS Semaglutide [Ozempic] 2 mg SQ MCCRACKEN Discharge Medication List RX: Albuterol Sulfate [Proair Hfa] 2 puff INHALATION RT-QID PRN 01/22/21 [History] RX: Rivaroxaban [Xarelto] 20 mg PO W/SUPPER 12/19/21 [History] RX: Budesonide-Formot 160-4.5 Mcg [Symbicort 160-4.5 Mcg Inhaler] 2 puff INHALATION RT-BID 02/03/22 [History] RX: Fluticasone Nasal [place] [Flonase Nasal [place]] 2 spr EA NOSTRIL DAILY 06/26/22 [History] RX: metFORMIN HCL ER [Glucophage XR] 1,000 mg PO HS 09/24/23 [History] Semaglutide [Ozempic] 2 mg SQ MCCRACKEN 09/24/23 [History] sitaGLIPtin [Januvia] 25 mg PO DAILY 09/24/23 [History] RX: Spironolactone 50 mg PO DAILY #90 tablet 09/29/23 [Rx] RX: Valsartan 320 mg PO DAILY #90 tab 09/29/23 [Rx] Follow up Appointment(s)/Referral(s): Fred Gil DO [STAFF PHYSICIAN] - 3 Weeks
== END 2023-09-29 15:03 | disposition home or self-care (01) | DRG 309 ==
LOC: 3SCARD 13:29
PROVIDERS: ADMIT Internal Medicine Clinical Cardiac Electrophysiology; ATTEND Internal Medicine Clinical Cardiac Electrophysiology
PROC: 5A2204Z Restoration of Cardiac Rhythm, Single (ICD-10-PCS; principal; 2023-09-26 10:00)
DX: I48.19 Other persistent atrial fibrillation (principal); I50.32 Chronic diastolic (congestive) heart failure; Z68.43 Body mass index [BMI] 50.0-59.9, adult; I47.20 Ventricular tachycardia, unspecified; I11.0 Hypertensive heart disease with heart failure; E11.9 Type 2 diabetes mellitus without complications; E66.01 Morbid (severe) obesity due to excess calories; J45.909 Unspecified asthma, uncomplicated; M10.9 Gout, unspecified; I44.1 Atrioventricular block, second degree; I49.3 Ventricular premature depolarization; Z87.891 Personal history of nicotine dependence; Z79.899 Other long term (current) drug therapy; Z79.84 Long term (current) use of oral hypoglycemic drugs; Z79.51 Long term (current) use of inhaled steroids; Z28.310 Unvaccinated for COVID-19; Z79.85 Long-term (current) use of injectable non-insulin antidiabetic drugs; Z79.01 Long term (current) use of anticoagulants
CPT/HCPCS: 71046; 80048; 80061; 83036; 83735; 84443; 85025; 85610; 92960; 94640